=== PATIENT | male | born 1990 | race Caucasian/White ===

== ENCOUNTER 2017-01-16 19:46 | Inpatient (IN) | payer MEDICAID ==
[~2017-01-16] VITALS: Ht 152.4 cm; Wt 41.4 kg
[~2017-01-16 19:46] MED LIST: /ESOM40CA; ACET500C; ARTISOL10; CETAPHIL CLEANSER; COLA100C2; DEBR6.5S4; DUCOLAX; FLEETS ENEMA; LORA1TAB; MILKSUS; MINO0.1C PO; MULTIVIT; SING10TA31; SUDA30TA; TAZORAC; TOPI100T; ZYRT10CA PO; [UNRECOGNIZED DRUG - CODE]; [UNRECOGNIZED DRUG - OTHER]
--- NOTE | 2017-01-16 20:50 | REPUSA ---
CT of the head Clinical history: loss of consciousness. Comparison: 04/06/2015. Protocol: Multiple axial CT images obtained with 5 mm slice thickness were obtained through the head without administration of contrast. Findings: The posterior horns of the lateral ventricles are severely and large, but grossly stable si nce the prior study. A shunt catheter remains in in place, medial to the posterior horn of the right lateral ventricle. There is no evidence of acute hemorrhage or infarct. There is no midline shift, ma ss effect, or extra-axial fluid collection. The osseous structures are unremarkable. The visualized p aranasal sinuses and mastoid air cells are clear. Impression: 1. No acute hemorrhage or infarct. 2. Severe enlargement of the posterior horns of the lateral ventricles bilaterally are grossly stable since the prior study. Shunt catheter is in place.
[2017-01-16 20:53] LABS: BASO % 0.1 % (0.0-1.0); EOS # 0.1 K/mm3 (0.0-0.50); EOS % 0.7 % (0.0-3.0); LARGE UNSTAINED CELL # 0.1 K/mm3 (0.0-0.4); LARGE UNSTAINED CELL % 0.6 % (0.0-4.0); LYMPH # 0.8 K/mm3 (1.5-6.5); LYMPH % 6.7 % (24.0-44.0); MEAN CORPUSCULAR HEMOGLOBIN 29.5 pg (27.0-33.0); MEAN CORPUSCULAR HGB CONC 33.1 g/dl (32.0-36.5); MEAN CORPUSCULAR VOLUME 89.1 fl (80.0-96.0); MONO # 0.3 K/mm3 (0.0-0.8); MONO % 2.5 % (0.0-5.0); NEUTROPHILS # 10.3 K/mm3 (1.8-7.7); NEUTROPHILS % 89.4 % (36.0-66.0); PLATELET COUNT, AUTOMATED 200 k/mm3 (150-450); RED CELL DISTRIBUTION WIDTH 12.2 % (11.5-14.5); WHITE BLOOD COUNT 11.6 K/mm3 (4.0-10.0)
[2017-01-16 21:04] LABS: INR 1.04
[2017-01-16 21:15] LABS: ALBUMIN 3.9 GM/DL (3.2-5.2); ALBUMIN/GLOBULIN RATIO 1.08 (1.00-1.93); ALKALINE PHOSPHATASE 99 U/L (45-117); ALT/SGPT 37 U/L (12-78); ANION GAP 10 MEQ/L (8-16); AST/SGOT 13 U/L (15-37); BILIRUBIN,DIRECT < 0.1 MG/DL (0.0-0.2); BILIRUBIN,TOTAL 0.2 MG/DL (0.2-1.0); BLOOD UREA NITROGEN 18 MG/DL (7-18); CARBON DIOXIDE LEVEL 25 MEQ/L (21-32); CHLORIDE LEVEL 110 MEQ/L (98-107); CREATININE FOR GFR 1.19 MG/DL (0.70-1.30); GLOMERULAR FILTRATION RATE > 60.0 (>60); GLUCOSE, FASTING 191 MG/DL (70-105); POTASSIUM SERUM 3.8 MEQ/L (3.5-5.1); SODIUM LEVEL 145 MEQ/L (136-145); TOTAL PROTEIN 7.5 GM/DL (6.4-8.2)
[2017-01-16] MEDS ORDERED: MONT10TA2 PO (22:42)
[2017-01-16] MEDS ORDERED: SUDA30TA PO (22:42)
[2017-01-16] MEDS ORDERED: DULC10SU2 PR (22:42)
[2017-01-16] MEDS ORDERED: CETI10TA PO (22:42)
[2017-01-16] MEDS ORDERED: SALI0.653 ×2 (22:42)
[2017-01-16] MEDS ORDERED: MILKSUS PO (22:42)
[2017-01-16] MEDS ORDERED: DOCU100C PO (22:42)
[2017-01-16] MEDS ORDERED: BENZ35GEL TOP (22:42)
[2017-01-16] MEDS ORDERED: CLOTR1CR EXT (22:42)
[2017-01-16] MEDS ORDERED: ESOM1CAP5 PO (22:42)
[2017-01-16] MEDS ORDERED: TOPA100T8 PO (22:42)
[2017-01-16] MEDS ORDERED: VITACHTA PO (22:42)
[2017-01-16] MEDS ORDERED: ENEMENE3 PR (22:42)
[2017-01-16] MEDS ORDERED: MINO100C PO (22:42)
[2017-01-16] MEDS ORDERED: THROMBIN SOLN 20,000 UNITS KIT As Ordered ONE (23:17)
[2017-01-16] MEDS ORDERED: LIDOCAINE W/EPINEPHRINE 1% 20ML VIAL As Ordered ONE (23:18)
[2017-01-16] MEDS ORDERED: NAFCILLIN SOD 1 GM VIAL (S0032) As Ordered ONE ×2 (23:18→23:59)
[2017-01-16] MEDS ORDERED: BACITRACIN PWD 50,000 UNITS VIAL As Ordered ONE (23:18)
--- NOTE | 2017-01-16 23:21 | EDDOCDS ---
Physician Documentation [facility] Name: Avinash Waddell Age: 26 yrs Sex: Male : 1990 Arrival Date: 01/16/2017 Time: 19:46 Bed TR5 Private MD: Pau Shah E Disposition: 01/16/17 22:18 Hospitalization ordered by Jonatan Mauro for Inpatient Admission. 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 - Bed requested for Admit. - Status is Inpatient Admission. [facility] - Condition is Stable. - Problem is new. - Symptoms have improved. Historical: - Allergies: Latex; - Home Meds: 1. Topamax 100 mg Oral tab 1 tab TID 2. esomeprazole magnesium 40 mg Oral cpDR 1 cap once daily 3. minocycline 100 mg Oral cap 1 cap daily 4. chewable vitamin 1 tab daily 5. DOK 100 mg oral cap 1 cap 2 times per day 6. topiramate 100 mg oral tab TID 7. montelukast 10 mg oral tab 1 tab once daily - PMHx: Cerebral Palsy; Seizure Disorder; Asthma; cortical blindness; - PSHx: AV shunt on right 1992; bilateral hip surgery; - Social history: Smoking status: Patient states was never smoker of tobacco. Patient is speech impaired. Does not speak. - Family history: Not pertinent. - : The pt / caregiver states he / she is not on anticoagulants. Home medication list is obtained from the facility [facility]. - Exposure Risk Screening:: None identified. Vital Signs: 01/16 20:02 BP 124 / 78; Pulse 66; Resp 18; Temp 98.6(TE); Pulse Ox 100% on 2 lpm NC; Weight 44.36 kas2 kg / 97.8 lbs; Height 5 ft. (152.40 cm); Pain 0/10; 21:30 BP 128 / 82; Pulse 65; Resp 18; Temp 97.9(TE); Pulse Ox 100% on 2 lpm NC; Pain 0/10; kas2 22:55 BP 136 / 87; Pulse 66; Resp 16; Temp 98.9(TE); Pulse Ox 100% on 2 lpm NC; nb2 20:02 Body Mass Index 19.10 (44.36 kg, 152.40 cm) kas2 MDM: 20:14 CT Head Without Contrast Ordered. EDMS 20:26 IV Saline Lock ordered. cs11 20:26 CBC with Diff Ordered. EDMS 20:26 MED Profile Ordered. EDMS 20:26 Liver Profile Ordered. EDMS 20:26 Pt & Aptt Ordered. EDMS 20:41 Financial registration complete. ks16 20:47 [facility] Payment Agreement was scanned into [employer] and attached to record. ks16 21:25 CBC with Diff Reviewed. cs11 21:25 MED Profile Reviewed. cs11 21:25 Liver Profile Reviewed. cs11 21:25 Pt & Aptt Reviewed. cs11 21:25 CT Head Without Contrast Reviewed. cs11 21:53 Shunt Series Ordered. EDMS 21:54 Sed Rate Ordered. EDMS Signatures: Dispatcher [employer] EDMS Gonzalez Jj DO DO cs11 Ronda Melendrez, Reg Reg ks16 Delmy Guzman,RN RN kas2 The chart was reviewed and I authenticate all verbal orders and agree with the evaluation and treatment provided.Attachments: 20:47 [facility] Payment Agreement ks16 MTDD
--- NOTE | 2017-01-16 23:21 | EDDOCDS ---
Nurse's Notes [facility] Name: Avinash Waddell Age: 26 yrs Sex: Male : 1990 Arrival Date: 01/16/2017 Time: 19:46 Bed TR5 Private MD: Pau Shah E Diagnosis: Hydrocephalus;Breakdown (mechanical) of ventricular intracranial (communicating) shunt Presentation: 01/16 19:54 Presenting complaint: EMS states: Patient is from [facility]. Staff not sure if he had a kas2 seizure unwitnessed. Staff said he is not acting himself. FSBS 202 mg/dL. EMS states he is having periods of apnea. Adult Sepsis Screening: The patient does not have new or worsening altered mentation. Patient's respiratory rate is less than 22. Systolic blood pressure is greater than 100. Patient has a qSOFA score of 0- Negative Sepsis Screen. Suicide/Homicide risk assessment- Suicide/Homicide risk assessment- the patient denies having any suicidal and/or homicidal ideations and does not present with any other emotional, behavioral or mental health complaints. Suicide/Homicide risk assessment- the patient denies having any suicidal and/or homicidal ideations and does not present with any other emotional, behavioral or mental health complaints. Status: Patient is not a equipment service lead or dependent. Transition of care: patient was not received from another setting of care. 19:54 Acuity: ROMELIA Level 3 [facility] 19:54 Method Of Arrival: Ambulance [facility] Triage Assessment: 20:02 General: Appears in no apparent distress, uncomfortable, well nourished, well groomed, kas2 Behavior is restless. Pain: Unable to use pain scale. Does not appear to understand pain scale. Pt Declines HIV testing. Neurological: Level of Consciousness is awake, lethargic. Cardiovascular: Capillary refill < 3 seconds Heart tones S1 S2 present Rhythm is sinus rhythm No ectopy. Chest pain is denied. Respiratory: Airway is patent Respiratory effort is even, unlabored, Respiratory pattern is regular, symmetrical. Derm: Skin is intact, Skin is dry, Skin is pale, Skin temperature is warm. 20:10 Respiratory: Breath sounds are clear bilaterally. Breath sounds are diminished cf2 bilaterally. GI: Abdomen is flat, non- distended Bowel sounds present X 4 quads. Historical: - Allergies: Latex; - Home Meds: 1. Topamax 100 mg Oral tab 1 tab TID 2. esomeprazole magnesium 40 mg Oral cpDR 1 cap once daily 3. minocycline 100 mg Oral cap 1 cap daily 4. chewable vitamin 1 tab daily 5. DOK 100 mg oral cap 1 cap 2 times per day 6. topiramate 100 mg oral tab TID 7. montelukast 10 mg oral tab 1 tab once daily - PMHx: Cerebral Palsy; Seizure Disorder; Asthma; cortical blindness; - PSHx: AV shunt on right 1993; bilateral hip surgery; - Social history: Smoking status: Patient states was never smoker of tobacco. Patient is speech impaired. Does not speak. - Family history: Not pertinent. - : The pt / caregiver states he / she is not on anticoagulants. Home medication list is obtained from the facility [facility]. - Exposure Risk Screening:: None identified. Screenin:07 Screening information is obtained from residence staff. Fall risk: No risks identified. kas2 Assistance ADL's: Requires assistance with meal preparation, this assistance is provided by residence staff, bathing, assistance is provided by residence staff, dressing, assistance is provided by residence staff, toileting, assistance is provided by residence staff, medication administration, assistance is provided by residence staff. Abuse/DV Screen: The patient / caregiver reports he/she is: not in a situation that causes fear, pain or injury. Nutritional screening: No deficits noted. Advance Directives: Currently, there is no health care proxy. There is no active DNR order. There is no living will. There is no Power of Study Lead. home support is adequate. Assessment: 20:06 General: See triage note.. kas2 20:52 General: Appears in no apparent distress, well nourished, well groomed, Behavior is kas2 restless. Pain: Unable to use pain scale. Patient is non verbal. Neurological: Level of Consciousness is awake, alert. Cardiovascular: Rhythm is sinus rhythm No ectopy. Respiratory: Airway is patent Respiratory effort is even, unlabored, Respiratory pattern is regular, symmetrical. :. Derm: Skin is intact, Skin is dry, Skin is pale, Skin temperature is warm. 21:58 General: Appears in no apparent distress, Behavior is Patient is appropriate for his kas2 normal self as per mom.. Pain: Unable to use pain scale. Patient is unable to comprehend pain scale. Neurological: Level of Consciousness is awake, alert. Cardiovascular: Rhythm is sinus rhythm No ectopy. Respiratory: Airway is patent Respiratory effort is even, unlabored, Respiratory pattern is regular, symmetrical. Derm: Skin is intact, Skin is dry, Skin is pale, Skin temperature is warm. 22:30 General: Mom states patient is having apneic spells. SpO2 100% on 2L. Dr. Serrano in [facility] room assessing patient at this time. Patient wakes to sternal rub and moans. Airway patent. . 23:02 General: Anaestesiology in room wanting to intubate patient at this time. States there [facility] is not enough room so RN aid and anaestesiologist bagging patient to OR at this time.. Vital Signs: 20:02 BP 124 / 78; Pulse 66; Resp 18; Temp 98.6(TE); Pulse Ox 100% on 2 lpm NC; Weight 44.36 kas2 kg; Height 5 ft. (152.40 cm); Pain 0/10; 21:30 BP 128 / 82; Pulse 65; Resp 18; Temp 97.9(TE); Pulse Ox 100% on 2 lpm NC; Pain 0/10; kas2 22:55 BP 136 / 87; Pulse 66; Resp 16; Temp 98.9(TE); Pulse Ox 100% on 2 lpm NC; nb2 20:02 Body Mass Index 19.10 (44.36 kg, 152.40 cm) [facility] Vitals: 20:02 Log In Time N/A - ambulance arrival. [facility] ED Course: 19:47 Delmy Guzman RN is Primary Nurse. [facility] 19:47 Patient visited by Milady Mercado, Internal Review And Audit Compliance. [facility] 19:47 Patient moved to 12 [facility] 19:48 Pau Shah is Private Physician. [facility] 19:49 Gonzalez Jj DO is Attending Physician. 11 19:49 Patient visited by Gonzalez Jj DO. cs11 19:56 Triage Initiated [facility] 20:10 Maintain field IV. Dressing intact. Site clean & dry. Gauge & site: 18G right forearm. cf2 No procedures done that require assistance. 20:11 Patient visited by Kenyatta Crockett RN. cf2 20:19 Patient visited by Delmy Guzman RN. kas2 20:37 Patient visited by Delmy Guzman RN. kas2 20:47 [facility] Payment Agreement was scanned into [employer] and attached to record. ks16 20:52 CT Head Without Contrast Returned. EDMS 20:54 Patient visited by Delmy Guzman RN. kas2 20:54 Labs drawn. (by ED staff). Sent per order to lab. kas2 21:32 Patient visited by Delmy Guzman RN. kas2 21:57 Sed Rate Sent. kas2 21:59 Patient visited by Delmy Guzman RN. kas2 22:18 Jonatan Mauro is Hospitalizing Provider. cs11 23:13 Patient moved to TR5 ms18 23:20 Patient visited by Delmy Guzman RN. kas2 23:20 The patient / caregiver is instructed regarding the plan of care and ED course. kas2 Order Results: Lab Order: CBC with Diff; SPEC'M 01/16/17 20:45 Test: WHITE BLOOD COUNT; Value: 11.6; Range: 4.0-10.0; Abnormal: Above high normal; Units: K/mm3; Status: F Test: RED BLOOD COUNT; Value: 5.25; Range: 4.30-6.10; Units: M/mm3; Status: F Test: HEMOGLOBIN; Value: 15.5; Range: 14.0-18.0; Units: g/dl; Status: F Test: HEMATOCRIT; Value: 46.8; Range: 42.0-52.0; Units: %; Status: F Test: MEAN CORPUSCULAR VOLUME; Value: 89.1; Range: 80.0-96.0; Units: fl; Status: F Test: MEAN CORPUSCULAR HEMOGLOBIN; Value: 29.5; Range: 27.0-33.0; Units: pg; Status: F Test: MEAN CORPUSCULAR HGB CONC; Value: 33.1; Range: 32.0-36.5; Units: g/dl; Status: F Test: RED CELL DISTRIBUTION WIDTH; Value: 12.2; Range: 11.5-14.5; Units: %; Status: F Test: PLATELET COUNT, AUTOMATED; Value: 200; Range: 150-450; Units: k/mm3; Status: F Test: NEUTROPHILS %; Value: 89.4; Range: 36.0-66.0; Abnormal: Above high normal; Units: %; Status: F Test: LYMPH %; Value: 6.7; Range: 24.0-44.0; Abnormal: Below low normal; Units: %; Status: F Test: MONO %; Value: 2.5; Range: 0.0-5.0; Units: %; Status: F Test: EOS %; Value: 0.7; Range: 0.0-3.0; Units: %; Status: F Test: BASO %; Value: 0.1; Range: 0.0-1.0; Units: %; Status: F Test: LARGE UNSTAINED CELL %; Value: 0.6; Range: 0.0-4.0; Units: %; Status: F Test: NEUTROPHILS #; Value: 10.3; Range: 1.8-7.7; Abnormal: Above high normal; Units: K/mm3; Status: F Test: LYMPH #; Value: 0.8; Range: 1.5-6.5; Abnormal: Below low normal; Units: K/mm3; Status: F Test: MONO #; Value: 0.3; Range: 0.0-0.8; Units: K/mm3; Status: F Test: EOS #; Value: 0.1; Range: 0.0-0.50; Units: K/mm3; Status: F Test: BASO #; Value: 0.0; Range: 0.0-0.2; Units: K/mm3; Status: F Test: LARGE UNSTAINED CELL #; Value: 0.1; Range: 0.0-0.4; Units: K/mm3; Status: F Lab Order: MED Profile; SPEC'M 01/16/17 20:45 Test: GLUCOSE, FASTING; Value: 191; Range: 70-105; Abnormal: Above high normal; Units: MG/DL; Status: F Test: BLOOD UREA NITROGEN; Value: 18; Range: 7-18; Units: MG/DL; Status: F Test: CREATININE FOR GFR; Value: 1.19; Range: 0.70-1.30; Units: MG/DL; Status: F Test: GLOMERULAR FILTRATION RATE; Value: > 60.0; Range: >60; Status: F Test: SODIUM LEVEL; Value: 145; Range: 136-145; Units: MEQ/L; Status: F Test: POTASSIUM SERUM; Value: 3.8; Range: 3.5-5.1; Units: MEQ/L; Status: F Test: CHLORIDE LEVEL; Value: 110; Range: 98-107; Abnormal: Above high normal; Units: MEQ/L; Status: F Test: CARBON DIOXIDE LEVEL; Value: 25; Range: 21-32; Units: MEQ/L; Status: F Test: ANION GAP; Value: 10; Range: 8-16; Units: MEQ/L; Status: F Test: CALCIUM LEVEL; Value: 9.0; Range: 8.5-10.1; Units: MG/DL; Status: F Test Note: ; Units are mL/min/1.73 m2 Chronic Kidney Disease Staging per NKF: Stage I & II GFR >=60 Normal to Mildly Decreased Stage III GFR 30-59 Moderately Decreased Stage IV GFR 15-29 Severely Decreased Stage V GFR <15 Very Little GFR Left ESRD GFR <15 on GAS LOAD DISPATCHER Lab Order: Liver Profile; SPEC'M 01/16/17 20:45 Test: AST/SGOT; Value: 13; Range: 15-37; Abnormal: Below low normal; Units: U/L; Status: F Test: ALT/SGPT; Value: 37; Range: 12-78; Units: U/L; Status: F Test: ALKALINE PHOSPHATASE; Value: 99; Range: 45-117; Units: U/L; Status: F Test: BILIRUBIN,TOTAL; Value: 0.2; Range: 0.2-1.0; Units: MG/DL; Status: F Test: BILIRUBIN,DIRECT; Value: < 0.1; Range: 0.0-0.2; Units: MG/DL; Status: F Test: TOTAL PROTEIN; Value: 7.5; Range: 6.4-8.2; Units: GM/DL; Status: F Test: ALBUMIN; Value: 3.9; Range: 3.2-5.2; Units: GM/DL; Status: F Test: ALBUMIN/GLOBULIN RATIO; Value: 1.08; Range: 1.00-1.93; Status: F Lab Order: Pt & Aptt; SPEC'01/16/17 20:45 Test: PROTHROMBIN TIME; Value: 13.7; Range: 12.3-14.5; Units: SECONDS; Status: F Test: INR; Value: 1.04; Status: F Test: PARTIAL THROMBOPLASTIN TIME; Value: 26.0; Range: 26.6-37.1; Abnormal: Below low normal; Units: SECONDS; Status: F Test Note: ; THERAPUTIC HUMAN INR VALUES INDICATIONS NORMAL RANGES PROPHYLAXIS/TREATMENT OF: VENOUS THROMBOSIS 2.0-3.0 PULMONARY EMBOLISM 2.0-3.0 PREVENTION OF SYSTEMIC EMBOLISM FROM: TISSUE HEART VALVES 2.0-3.0 ACUTE MYOCARDIAL INFARCTION 2.0-3.0 VALVULAR HEART DISEASE 2.0-3.0 ATRIAL FIBRILLATION 2.0-3.0 MECHANICAL VALVES(HIGH RISK) 2.5-3.5 RECURRENT MYOCARDIAL INFARCTION 2.5-3.5 Lab Order: Sed Rate; SPEC'M 01/16/17 20:45 Test: ERYTHROCYTE SEDIMENTATION RATE; Value: 3; Range: 0-15; Units: mm/hr; Status: F Radiology Order: CT Head Without Contrast Test: CT Head Without Contrast REASON FOR EXAMINATION: aloc; ; CT of the head; Clinical history: loss of consciousness.; Comparison: 04/06/2015.; Protocol: Multiple axial CT images obtained with 5 mm slice thickness were obtained through the head; without administration of contrast.; Findings: The posterior horns of the lateral ventricles are severely and large, but grossly stable si; nce the prior study. A shunt catheter remains in in place, medial to the posterior horn of the right; lateral ventricle. There is no evidence of acute hemorrhage or infarct. There is no midline shift, ma; ss effect, or extra-axial fluid collection. The osseous structures are unremarkable. The visualized p; aranasal sinuses and mastoid air cells are clear.; Impression:; 1. No acute hemorrhage or infarct.; 2. 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 Shunt catheter is in place.; ; Outcome: 22:18 Decision to Hospitalize by Provider. cs11 23:19 Discharge Assessment: patient administered narcotics - no. Admitted to OR accompanied kas2 by nurse, accompanied by tech, family with patient, via stretcher, with oxygen, on monitor, with chart. critical Condition: deteriorated. CT Study completed. Property :Personal belongings accompany Pt. 23:20 The following High Risk Discharge criteria are identified:. kas2 23:20 Patient left the ED. kas2 Signatures: Dispatcher [employer] EDMS Gonzalez Jj, DO DO cs11 Milady Mercado, Internal Review And Audit Compliance Unit Francheska Chapin RN RN ms18 Parvin Ronda, Reg Reg ks16 Delmy Guzman RN RN [facility] Kenyatta Crockett RN RN 2 Светлана Lutz2 Corrections: (The following items were deleted from the chart) 23:14 23:08 General: kas2 kas2 23:17 22:30 General: Mom states patient having apneic spells when laying in bed. SpO2 100% on kas2 2L pnp. Airway patent and respiratory even and unlabored. RN performed sternal rub and patient wakes up and moans. Dr. Mora in room assessing patient at this time.. kas2 MTDD
[2017-01-16] MEDS ORDERED: fentaNYL 100 MCG/2 ML INJECTION (J3010) As Ordered ONE (23:54)
[2017-01-16] MEDS ORDERED: PROPOFOL 200 MG/20 ML VIAL As Ordered ONE (23:54)
[2017-01-16] MEDS ORDERED: dexameTHASONE 4 MG/ML 1ML VIAL (J1100) As Ordered ONE (23:55)
[2017-01-16] MEDS ORDERED: ROCURONIUM BROMIDE 50 MG/5 ML VIAL As Ordered ONE (23:58)
[2017-01-17] VITALS (16 sets, daily range): BP systolic 98–141; BP diastolic 52–97; O2SAT 99–100
[2017-01-17] MEDS ORDERED: NAFCILLIN SOD 1 GM VIAL (S0032) IV ONE (00:01)
[2017-01-17] MEDS ORDERED: fentaNYL 100 MCG/2 ML INJECTION (J3010) As Ordered ONE (00:01)
[2017-01-17] MEDS ORDERED: PHENYLephrine HCL 500 MCG/5 ML (100MCG/ML) SYRINGE (J2370) As Ordered ONE (00:10)
[2017-01-17] MEDS ORDERED: PROPOFOL 200 MG/20 ML VIAL As Ordered ONE (00:12)
[2017-01-17] MEDS ORDERED: NEOSTIGMINE 1MG/ML 5 ML SYRINGE (J2710) As Ordered ONE (00:51)
[2017-01-17] MEDS ORDERED: ONDANSETRON 4MG/2ML VIAL (J2405) As Ordered ONE (00:51)
[2017-01-17] MEDS ORDERED: GLYCOPYRROLATE INJ 0.2 MG/ML 2 ML VIAL As Ordered ONE (00:52)
[2017-01-17] MEDS ORDERED: KCL 20MEQ IN D5/.45NACL 1000ML As Ordered ONE (01:14)
[2017-01-17] MEDS ORDERED: MEPERIDINE INJ 25 MG/ML VIAL (J2175) As Ordered ONE (01:17)
[2017-01-17] MEDS ORDERED: LIDOCAINE W/EPINEPHRINE 1% 20ML VIAL XX ONE (01:39)
[2017-01-17] MEDS ORDERED: fentaNYL 100 MCG/2 ML INJECTION (J3010) IV PRN (01:45)
[2017-01-17] MEDS ORDERED: MEPERIDINE INJ 25 MG/ML VIAL (J2175) IV PRN (01:45)
[2017-01-17] MEDS ORDERED: LR 1,000 ML IV SCH (01:45)
[2017-01-17] MEDS ORDERED: ONDANSETRON 4MG/2ML VIAL (J2405) IV PRN (01:45)
[2017-01-17 01:46] LABS: APPEARANCE, CSF CLOUDY (CLEAR); COLOR, CSF RED (COLORLESS); CSF TUBE# CELL CNT TUBE 1
[2017-01-17 01:47] LABS: CSF DIFF IF INDICATED? YES (NO); RBC CSF AUTO 81920 /mm3 (0-0); WBC CSF AUTO 1050 /mm3 (0-10)
[2017-01-17 01:48] LABS: CSF DILUENT LOT # 6109
[2017-01-17 01:51] LABS: GLUCOSE CSF 101 MG/DL (40-75)
[2017-01-17] MEDS: KCL 20MEQ IN D5/0.45NS 1000ML 1,000 ML IV SCH ×3 (03:32→18:25)
[2017-01-17] MEDS: CEFUROXIME SODIUM 1.5 GM in D5W MINI-BAG PLUS 50 ML IV SCH ×3 (03:33→18:00)
[2017-01-17 05:06] LABS: ALBUMIN 3.3 GM/DL (3.2-5.2); ALKALINE PHOSPHATASE 84 U/L (45-117); ALT/SGPT 31 U/L (12-78); ANION GAP 9 MEQ/L (8-16); AST/SGOT 13 U/L (15-37); BILIRUBIN,TOTAL 0.2 MG/DL (0.2-1.0); BLOOD UREA NITROGEN 17 MG/DL (7-18); CALCIUM LEVEL 8.7 MG/DL (8.5-10.1); CARBON DIOXIDE LEVEL 25 MEQ/L (21-32); CHLORIDE LEVEL 110 MEQ/L (98-107); CREATININE FOR GFR 1.11 MG/DL (0.70-1.30); GLOMERULAR FILTRATION RATE > 60.0 (>60); GLUCOSE, FASTING 134 MG/DL (70-105); POTASSIUM SERUM 4.1 MEQ/L (3.5-5.1); SODIUM LEVEL 144 MEQ/L (136-145); TOTAL PROTEIN 6.6 GM/DL (6.4-8.2)
[2017-01-17 05:31] LABS: BASO % 0.1 % (0.0-1.0); EOS % 0.2 % (0.0-3.0); LARGE UNSTAINED CELL # 0.1 K/mm3 (0.0-0.4); LARGE UNSTAINED CELL % 0.8 % (0.0-4.0); LYMPH # 0.8 K/mm3 (1.5-6.5); LYMPH % 6.3 % (24.0-44.0); MEAN CORPUSCULAR HEMOGLOBIN 29.6 pg (27.0-33.0); MEAN CORPUSCULAR HGB CONC 33.2 g/dl (32.0-36.5); MEAN CORPUSCULAR VOLUME 89.2 fl (80.0-96.0); MONO # 0.6 K/mm3 (0.0-0.8); MONO % 4.5 % (0.0-5.0); NEUTROPHILS # 10.8 K/mm3 (1.8-7.7); NEUTROPHILS % 88.2 % (36.0-66.0); PLATELET COUNT, AUTOMATED 213 k/mm3 (150-450); RED CELL DISTRIBUTION WIDTH 12.4 % (11.5-14.5); WHITE BLOOD COUNT 12.3 K/mm3 (4.0-10.0)
--- NOTE | 2017-01-17 08:41 | REP ---
Clinical: Shunt series. Loss of consciousness. Findings: AP and lateral views of the skull along with AP views of the chest and abdomen/pelvis demonstrate a ventriculoperitoneal shunt with its tip overlying the region of the right ventricle and tubing appearing contiguous along the right neck/chest and abdomen terminating in the mid abdomen. Bowel gas pattern is nonspecific. Frontal view of the chest demonstrates no acute mediastinal or pleuroparenchymal process. Visualized osseous structures suggest mild levoconvex scoliosis and spina bifida occulta. Impression: Ventriculoperitoneal shunt appears contiguous and extends into the mid abdomen. Signed by All Nguyen MD 01/17/2017 08:33 A
[2017-01-17] MEDS: TOPIRAMATE (TopAMAX) 100 MG TAB PO SCH ×3 (09:54→21:09)
--- NOTE | 2017-01-17 10:59 | REP ---
CT HEAD WITHOUT CONTRAST: HISTORY: Intraventricular shunt. COMPARISON: 01/06/2017. There is volume loss in the temporoparietal and left occipital lobes. A punctate calcification is present in the periventricular white matter of the left frontal lobe. There is no intraparenchymal hemorrhage, mass or midline shift. Two shunts are present in the right lateral ventricle. The lateral shunt is new compared to the previous study. There has been a decrease in size of the ventricles compared to the previous study. A small amount of pneumocephalus is present. There is no extracerebral collection. The visualized sinuses are clear. IMPRESSION: 1. Bilateral temporoparietal and left occipital lobe encephalomalacia. 2. There is a new shunt in the right lateral ventricle. The ventricles are decreased in size compared to the previous study. A small amount of pneumocephalus is present. Signed by Jorge Pearson MD 01/17/2017 11:11 A
--- NOTE | 2017-01-17 11:44 | IPNPDOC ---
Subjective Date Seen The patient was seen on 01/17/17. Subjective Chief Complaint/HPI The patient is a 26-year-old male admitted with a reason for visit of Hydrocephalus. Events since last encounter as per [facility] staff patient's mental status almost back to baseline, patient is smiling having pureed food, Had PROPOSAL DEVELOPMENT MANAGER shunt replacement on 01/16/17, no fever or chills, no vomiting or diarrhea. Objective Physical Examination General Exam: Positive: Cooperative, No Acute Distress, Other (non communicative, blind.) Eye Exam: Positive: Other Eye Symptoms (left eye shut, right eye abnormal. ) ENT Exam: Positive: Atraumatic, Mucous membr. moist/pink Neck Exam: Positive: Supple Chest Exam: Positive: Clear to auscultation, Normal air movement Heart Exam: Positive: Normal S1, Normal S2, Regular Rhythm, Tachycardic Telemetry: Positive: No significant arrhythmia Abdomen Exam: Positive: Normal bowel sounds, Soft Extremity Exam: Positive: Other (contracted, atrophied and abnormal both extremities.) Psych Exam: Positive: Other (severe mental retardation) Assessment /Plan Problems (1) Obstructed PROPOSAL DEVELOPMENT MANAGER shunt Status: Acute Problem Text: abnormal function of PROPOSAL DEVELOPMENT MANAGER shunt which was replaced on 01/16/17 no issues management as per neurosurgery. (2) Congenital hydrocephalus Status: Chronic (3) Developmental disability Status: Chronic Problem Text: continue home meds. (4) Blind Status: Chronic (5) Seizure disorder Status: Chronic Problem Text: continue home meds Plan/VTE VTE Prophylaxis Ordered?: Yes VS, I&O, 24H, Fishbone Vital Signs/I&O Vital Signs Date Time Temp Pulse Resp B/P Pulse Ox O2 Delivery O2 Flow Rate FiO2 01/17/17 05:00 18 99 Room Air 01/17/17 04:00 98.3 78 102/54 2.0 01/17/17 01:55 28 I&O- Last 24 Hours up to 6 AM 01/17/17 06:00 Intake Total 2530 ml Output Total 10 ml Balance 2520 ml Laboratory Data 24H LABS Laboratory Tests 2 01/16/17 20:45: Activated Partial Thromboplast Time 26.0L, Aspartate Amino Transf (AST/SGOT) 13L , Alanine Aminotransferase (ALT/SGPT) 37, Alkaline Phosphatase 99, Total Bilirubin 0.2, Direct Bilirubin < 0.1, Albumin 3.9, Albumin/Globulin Ratio 1.08 , Anion Gap 10, White Blood Count 11.6H, Red Blood Count 5.25, Hemoglobin 15.5, Hematocrit 46.8, Mean Corpuscular Volume 89.1, Mean Corpuscular Hemoglobin 29.5 , Mean Corpuscular Hemoglobin Concent 33.1, Red Cell Distribution Width 12.2, Platelet Count 200, Neutrophils (%) (Auto) 89.4H, Lymphocytes (%) (Auto) 6.7L, Monocytes (%) (Auto) 2.5, Eosinophils (%) (Auto) 0.7, Basophils (%) (Auto) 0.1, Neutrophils # (Auto) 10.3H, Lymphocytes # (Auto) 0.8L, Monocytes # (Auto) 0.3, Eosinophils # (Auto) 0.1, Basophils # (Auto) 0.0, Calcium Level 9.0, Erythrocyte Sedimentation Rate 3, Glomerular Filtration Rate > 60.0, Large Unclassified Cells # 0.1, Large Unclassified Cells % 0.6, Prothromb Time International Ratio 1.04, Prothrombin Time 13.7, Total Protein 7.5 01/17/17 01:08: CSF Appearance CLOUDYH, CSF Cell Count Tube # TUBE 1, CSF Color REDH, CSF Eosinophils % 0.3H, CSF Glucose 101H, CSF Lymphocytes % 15.0H, CSF Monocytes % 7.2H, CSF Neutrophils % 77.6H, CSF RBC 03345E, CSF Total Protein 100.8H, CSF Tube Number TUBE 1, CSF WBC 1050H 01/17/17 04:41: Aspartate Amino Transf (AST/SGOT) 13L, Alanine Aminotransferase (ALT/SGPT) 31, Alkaline Phosphatase 84, Total Bilirubin 0.2, Albumin 3.3, Albumin/Globulin Ratio 1.00, Anion Gap 9, White Blood Count 12.3H, Red Blood Count 4.80, Hemoglobin 14.2, Hematocrit 42.8, Mean Corpuscular Volume 89.2, Mean Corpuscular Hemoglobin 29.6, Mean Corpuscular Hemoglobin Concent 33.2, Red Cell Distribution Width 12.4, Platelet Count 213, Neutrophils (%) (Auto) 88.2H, Lymphocytes (%) (Auto) 6.3L, Monocytes (%) (Auto) 4.5, Eosinophils (%) (Auto) 0.2, Basophils (%) (Auto) 0.1, Neutrophils # (Auto) 10.8H, Lymphocytes # (Auto) 0.8L, Monocytes # (Auto) 0.6, Eosinophils # (Auto) 0.0, Basophils # (Auto) 0.0, Calcium Level 8.7, Glomerular Filtration Rate > 60.0, Large Unclassified Cells # 0.1, Large Unclassified Cells % 0.8, Total Protein 6.6, Blood Urea Nitrogen 17 , Creatinine 1.11, Sodium Level 144, Potassium Level 4.1, Chloride Level 110H, Carbon Dioxide Level 25 CBC/BMP Laboratory Tests 01/16/17 20:45 Red Blood Count 5.25, Mean Corpuscular Volume 89.1, Mean Corpuscular Hemoglobin 29.5, Mean Corpuscular Hemoglobin Concent 33.1, Red Cell Distribution Width 12.2 , Neutrophils (%) (Auto) 89.4 H, Lymphocytes (%) (Auto) 6.7 L, Monocytes (%) ( Auto) 2.5, Eosinophils (%) (Auto) 0.7, Basophils (%) (Auto) 0.1, Neutrophils # ( Auto) 10.3 H, Lymphocytes # (Auto) 0.8 L, Monocytes # (Auto) 0.3, Eosinophils # (Auto) 0.1, Basophils # (Auto) 0.0 01/17/17 04:41 Red Blood Count 4.80, Mean Corpuscular Volume 89.2, Mean Corpuscular Hemoglobin 29.6, Mean Corpuscular Hemoglobin Concent 33.2, Red Cell Distribution Width 12.4 , Neutrophils (%) (Auto) 88.2 H, Lymphocytes (%) (Auto) 6.3 L, Monocytes (%) ( Auto) 4.5, Eosinophils (%) (Auto) 0.2, Basophils (%) (Auto) 0.1, Neutrophils # ( Auto) 10.8 H, Lymphocytes # (Auto) 0.8 L, Monocytes # (Auto) 0.6, Eosinophils # (Auto) 0.0, Basophils # (Auto) 0.0, Calcium Level 8.7, Aspartate Amino Transf ( AST/SGOT) 13 L, Alanine Aminotransferase (ALT/SGPT) 31, Alkaline Phosphatase 84 , Total Bilirubin 0.2, Total Protein 6.6, Albumin 3.3 Microbiology Microbiology 2/17/17 Gram Stain - Final, Resulted 01/17/17 CSF Culture, Resulted Pending LILIA TAN MD Jan 17, 2017 11:44
--- NOTE | 2017-01-17 12:12 | REP ---
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 Two shunts are present in the region of the lateral ventricles. A small amount of pneumocephalus is present. Surgical clips are present overlying the right temporal and parietal bones. IMPRESSION: There are two shunts in the region of the lateral ventricles. Signed by Jorge Pearson MD 01/17/2017 12:14 P
--- NOTE | 2017-01-17 12:40 | RO ---
DATE OF PROCEDURE: 01/17/2017 PREPROCEDURE DIAGNOSIS: Malfunctioning ventriculoperitoneal shunt. POSTPROCEDURE DIAGNOSIS: Malfunctioning ventriculoperitoneal shunt. PROCEDURE: Revision of ventriculoperitoneal shunt. SURGEON: Dr. Truong Hameed CO-SURGEON: Dr. Jonatan Mauro ANESTHESIA: General anesthesia. ESTIMATED BLOOD LOSS: Less than 10 mL. COMPLICATIONS: None. This procedure was done with Dr. Mauro as the neurosurgeon taking care of Mr. Waddell. He asked me to help him revise malfunctioning ventriculoperitoneal shunt causing the patient to have altered mental status. At the time that I came in the room, the patient was prepped and draped and under general anesthesia placed in a semi recumbent position. After he removed the old ventriculoperitoneal shunt and started a new one, I created about a 3 cm vertical incision superior to the periumbilical area, taking this through the subcutaneous tissue and anterior fascia. Once the anterior sheath was exposed, the subcutaneous tunneler was introduced and directed from my incision towards the patient's head. The catheter was threaded through the subcutaneous tunnel and connected to the ventricular shunt. This was tested. I then opened up the anterior sheath and the underlying peritoneum. The catheter was threaded directly into the abdomen. Once this was shown to be working, the abdominal fascia was closed interruptedly with #2-0 Vicryl. The subcutaneous tissue closed with #3-0 Vicryl and skin closed with #4-0 Monocryl. I used Dermabond for dressing. The other part of the procedure, the insertion of the ventricular shunt, will be dictated by Dr. Mauro.
[2017-01-17] MEDS: ACETAMINOPHEN TAB 650MG DOSE (2X325MG) PO PRN (17:56)
--- NOTE | 2017-01-17 18:44 | REP ---
Clinical: Postoperative fever. Findings: Extensive subcutaneous emphysema is appreciated within the right chest wall extending into the right neck as well as crossing the midline into the left anterior thoracic inlet. A right ventriculoperitoneal shunt is identified surrounded by and within the subcutaneous emphysema along the right neck, chest and upper abdominal wall . Limited evaluation of the upper abdomen also demonstrates pneumoperitoneum and distended loops of small and large bowel raising the possibility of underlying bowel perforation. The lung toure demonstrate bilateral lower lobe atelectasis (left greater than right) . No pleural effusion or pneumothorax. Tracheobronchial tree is patent . The mediastinum is grossly unremarkable by noncontrast evaluation. No obvious adenopathy. No cardiomegaly or pericardial effusion. Impression: 1. Pneumoperitoneum raising the possibility of underlying bowel perforation. 2. Subcutaneous emphysema along the right anterior abdominal wall , chest wall and right neck surrounding a ventriculoperitoneal shunt. Signed by All Nguyen MD 01/17/2017 06:35 P
--- NOTE | 2017-01-17 18:48 | REP ---
Clinical: Postoperative fever. Findings: Extensive pneumoperitoneum is appreciated along with predominant right-sided subcutaneous emphysema overlying the right chest and neck/thoracic inlet and extending into the left thoracic inlet. The lung toure suggest trace left-sided atelectasis. No obvious pneumothorax. Cardiac silhouette is normal. Skeletal structures are intact. Impression: Extensive pneumoperitoneum cannot exclude bowel perforation. Moderate subcutaneous emphysema (right greater than left). Trace left atelectasis. Signed by All Nguyen MD 01/17/2017 06:39 P
[2017-01-17] MEDS ORDERED: VANCOMYCIN HCL 1,000 MG, VIAL MATE ADAPTER 1 EACH in D5W 250 ML IV ONE (20:00)
[2017-01-17] MEDS ORDERED: MORPHINE 2 MG/ML 1ML SYRINGE IV ONE (21:00)
[2017-01-17] MEDS ORDERED: MORPHINE 2 MG/ML 1ML SYRINGE IV PRN (23:30)
[2017-01-18] VITALS (23 sets, daily range): BP systolic 89–148; BP diastolic 50–91
[2017-01-18] MEDS: KCL 20MEQ IN D5/0.45NS 1000ML 1,000 ML IV SCH ×4 (01:44→23:58)
[2017-01-18] MEDS: CEFUROXIME SODIUM 1.5 GM in D5W MINI-BAG PLUS 50 ML IV SCH ×2 (01:45→10:00)
[2017-01-18] MEDS: ACETAMINOPHEN TAB 650MG DOSE (2X325MG) PO PRN ×2 (02:42→22:12)
[2017-01-18] MEDS ORDERED: VANCOMYCIN HCL 1,000 MG, VIAL MATE ADAPTER 1 EACH in D5W 250 ML IV SCH (07:15)
[2017-01-18 08:02] LABS: ALBUMIN 3.6 GM/DL (3.2-5.2); ALKALINE PHOSPHATASE 92 U/L (45-117); ALT/SGPT 31 U/L (12-78); ANION GAP 25 MEQ/L (8-16); AST/SGOT 22 U/L (15-37); BILIRUBIN,TOTAL 0.8 MG/DL (0.2-1.0); BLOOD UREA NITROGEN 13 MG/DL (7-18); CALCIUM LEVEL 8.4 MG/DL (8.5-10.1); CARBON DIOXIDE LEVEL 13 MEQ/L (21-32); CHLORIDE LEVEL 99 MEQ/L (98-107); CREATININE FOR GFR 1.48 MG/DL (0.70-1.30); GLOMERULAR FILTRATION RATE > 60.0 (>60); GLUCOSE, FASTING 184 MG/DL (70-105); POTASSIUM SERUM 3.7 MEQ/L (3.5-5.1); SODIUM LEVEL 137 MEQ/L (136-145); TOTAL PROTEIN 7.2 GM/DL (6.4-8.2)
[2017-01-18 08:05] LABS: DIFF SLIDE NUMBER 98; MEAN CORPUSCULAR HEMOGLOBIN 30.4 pg (27.0-33.0); MEAN CORPUSCULAR HGB CONC 32.7 g/dl (32.0-36.5); MEAN CORPUSCULAR VOLUME 93.1 fl (80.0-96.0); PLATELET COUNT, AUTOMATED 206 k/mm3 (150-450); RED CELL DISTRIBUTION WIDTH 12.5 % (11.5-14.5); WHITE BLOOD COUNT 14.3 K/mm3 (4.0-10.0)
[2017-01-18 08:14] LABS: BASOPHILS 2 % (0-4)
[2017-01-18] MEDS: VANCOMYCIN HCL 750 MG, VIAL MATE ADAPTER 1 EACH in D5W 250 ML IV SCH ×2 (08:41→21:33)
[2017-01-18] MEDS: TOPIRAMATE (TopAMAX) 100 MG TAB PO SCH ×3 (08:41→21:33)
[2017-01-18] MEDS: levETIRAcetam INJection 500 MG in D5W MINI-BAG PLUS 100 ML IV SCH ×2 (08:41→21:34)
[2017-01-18] MEDS ORDERED: ONDANSETRON 4MG/2ML VIAL (J2405) IV PRN (10:30)
--- NOTE | 2017-01-18 10:30 | IPNPDOC ---
Subjective Date Seen The patient was seen on 01/18/17. Subjective Chief Complaint/HPI The patient is a 26-year-old male admitted with a reason for visit of Hydrocephalus. Events since last encounter patient febrile and lethargic since yesterday afternoon , had T max of 103.9, this am had an episode of seizure at around 7: 00 am then later in the morning had an episode of vomiting, patient was noted to have very tense and distended abdomen. feeds were held, NG tube inserted and ordered ct abdomen and pelvis. Patient is incontinent at baseline though the nurses have noticed darkening or urinary color. So llamas was ordered. Objective Physical Examination General Exam: Positive: Cooperative, No Acute Distress, Other (non communicative, blind.) Eye Exam: Positive: Other Eye Symptoms (left eye shut, right eye abnormal. ) ENT Exam: Positive: Atraumatic, Mucous membr. moist/pink Neck Exam: Positive: Supple Chest Exam: Positive: Clear to auscultation, Normal air movement Heart Exam: Positive: Normal S1, Normal S2, Regular Rhythm, Tachycardic Telemetry: Positive: No significant arrhythmia Abdomen Exam: Positive: BS Hypoactive, Other (distended. ), Tenderness Extremity Exam: Positive: Other ( atrophied and abnormal both extremities.) Psych Exam: Positive: Other (severe mental retardation) Assessment /Plan Problems (1) Abdominal distension Status: Acute Problem Text: With emesis of 200 cc of bile mixed ? fecal matter ct abdomen possible small bowel obstruction and perforation , fecal stasis in colon , hold feeds, NG tube, llamas consulted Dr Castro , Dr Spaulding following. cefuroxime changed to Zosyn for anaerobic coverage. (2) Fever Status: Acute Problem Text: Etiology undetermined at this point Thought to be post Op fever due to pneumonitis ? aspiration pneumonitis all cultures have been sent out patient empirically started on vancomycin and cefuroxime was continued. UA clean , Resp viral panel negative, CSF with elevated protein to 100 and WBC to 1050 [place] [address], gram stainof csf negative, cultures pending. ID has been consulted by Dr Bearden. Dr Spaulding to see also. (3) Obstructed CONSERVATION SCIENCE TEACHER shunt Status: Acute Problem Text: abnormal function of CONSERVATION SCIENCE TEACHER shunt which was replaced on 01/16/17 no issues management as per neurosurgery. (4) Congenital hydrocephalus Status: Chronic (5) Developmental disability Status: Chronic Problem Text: continue home meds. (6) Blind Status: Chronic (7) Seizure disorder Status: Chronic Problem Text: Had a seizure this am so was loaded with iv keppra 500 mg. (8) HIRAL (acute kidney injury) Status: Acute Problem Text: possibly prerenal will continue with IVF. (9) Subcutaneous emphysema Status: Acute Problem Text: post procedural emphysema. Plan/VTE VTE Prophylaxis Ordered?: Yes Plan/Urinary Catheter Reason for insertion/continuin: Critical Pt monitoring Disposition Hospitalist service will sign off now. Once pateint comes out of ICU please reconsult us if required. VS, I&O, 24H, Fishbone Vital Signs/I&O Vital Signs Date Time Temp Pulse Resp B/P Pulse Ox O2 Delivery O2 Flow Rate FiO2 01/18/17 06:00 103.9 119 16 140/80 99 Room Air 01/17/17 04:00 2.0 01/17/17 01:55 28 I&O- Last 24 Hours up to 6 AM 01/18/17 06:00 Intake Total 1325 ml Balance 1325 ml Laboratory Data 24H LABS Laboratory Tests 2 01/17/17 16:54: Urine Amorphous Sediment , Urine Appearance CLEAR, Urine Color YELLOW, Urine pH 6.0, Urine Specific Marcy 1.012, Urine Protein NEGATIVE, Urine Glucose (UA) 1+ H, Urine Ketones NEGATIVE, Urine Urobilinogen 0.2, Urine Bilirubin NEGATIVE, Urine Leukocyte Esterase NEGATIVE, Urine Bacteria (Auto) NEGATIVE, Urine Blood NEGATIVE, Urine Calcium Carbonate Cryst(Auto) , Urine Calcium Oxalate Cryst ( Auto) , Urine Calcium Phosphate Freda (Auto) , Urine Cellular Casts , Urine Cystine Crystals , Urine Granular Casts (Auto) , Urine Hyaline Casts (Auto) 0, Urine Leucine Crystals , Urine Mucus (Auto) SMALL, Urine Nitrite NEGATIVE, Urine Oval Fat Bodies (Auto) , Urine RBC (Auto) 0, Urine Renal Epithelial Cells , Urine Sperm (Auto) , Urine Squamous Epithelial Cells 0, Urine Transitional Epithelial Cells , Urine Trichomonas (Auto) , Urine Triple Phosphate Cryst (Auto ) , Urine Tyrosine Crystals , Urine Uric Acid Crystals (Auto) , Urine WBC (Auto ) 0, Urine Waxy Casts (Auto) , Urine Yeast-Like Cells (Auto) 01/18/17 07:17: Blood Urea Nitrogen 13, Creatinine 1.48H, Sodium Level 137, Potassium Level 3.7 , Chloride Level 99, Carbon Dioxide Level 13L, Calcium Level 8.4L, Aspartate Amino Transf (AST/SGOT) 22, Alanine Aminotransferase (ALT/SGPT) 31, Alkaline Phosphatase 92, Total Bilirubin 0.8#, Total Protein 7.2, Albumin 3.6, Albumin/ Globulin Ratio 1.00, Anion Gap 25H, Basophils (Manual) 2, Glomerular Filtration Rate > 60.0, Lymphocytes (Manual) 13L, Monocytes (Manual) 2, Neutrophils 83H, Platelet Estimate NORMAL, Red Blood Cell Morphology NORMAL CBC/BMP Laboratory Tests 01/18/17 07:17 Calcium Level 8.4 L, Aspartate Amino Transf (AST/SGOT) 22, Alanine Aminotransferase (ALT/SGPT) 31, Alkaline Phosphatase 92, Total Bilirubin 0.8 #, Total Protein 7.2, Albumin 3.6, Red Blood Count 5.04, Mean Corpuscular Volume 93.1, Mean Corpuscular Hemoglobin 30.4, Mean Corpuscular Hemoglobin Concent 32.7 , Red Cell Distribution Width 12.5 Microbiology Microbiology 01/17/17 Blood Culture, Received Pending 01/17/17 Blood Culture, Received Pending 01/17/17 Gram Stain - Final, Resulted 01/17/17 CSF Culture, Resulted Pending 01/18/17 Respiratory Virus Panel (PCR) ([facility]) - Final, Complete LILIA TAN MD Jan 18, 2017 10:30
--- NOTE | 2017-01-18 11:53 | REP ---
Clinical: Abdominal distension. Findings: Pneumoperitoneum is appreciated along with severely dilated stomach and small bowel with suspected collapsed small bowel in the right mid/lower quadrant along with normal caliber colon and demonstrating diffuse fecal stasis. Findings suggest small bowel obstruction with perforation however the exact point of obstruction or perforation are not clearly delineated but may be within the right mid to lower abdomen. A ventriculoperitoneal shunt is identified extending into the pelvis with subcutaneous emphysema tracking along its course through the anterior abdominal wall and superiorly and superficially along the subcutaneous tissues to the lower chest. Liver, spleen, pancreas, gallbladder, bilateral adrenal glands and kidneys are normal for noncontrast evaluation. A nasogastric tube is identified within the stomach and the distal esophagus as well as stomach appear distended and fluid-filled. Pelvis demonstrates collapsed bladder with nondependent air likely related to Barbour catheterization. Musculoskeletal structures demonstrate congenital/degenerative changes to the pelvis and hips compatible with cerebral palsy. Impression: 1. Significantly distended stomach and small bowel along with pneumoperitoneum suggests obstruction and perforation. The entire colon is normal caliber and stool filled consistent with fecal stasis and constipation. 2. Subcutaneous emphysema likely related to the pneumoperitoneum tracts along the ventriculoperitoneal shunt in the subcutaneous tissues of the right abdominal wall and right lower chest. 3. Trace lower lobe atelectasis. Signed by All Nguyen MD 01/18/2017 11:45 A
[2017-01-18] MEDS: PIPERACILLIN/TAZOBACTAM SOD 3.375 GM in D5W MINI-BAG PLUS 50 ML IV SCH ×2 (13:00→18:19)
[2017-01-18] MEDS ORDERED: D5W/0.9% SODIUM CHLORIDE 1,000 ML IV SCH (13:30)
[2017-01-18 13:59] LABS: ABG HCO3 21.6 MEQ/L (22.0-26.0); ABG PARTIAL PRESSURE CO2 30.4 mmHg (35.0-45.0); ABG PARTIAL PRESSURE O2 90.1 mmHg (75.0-100.0); ABG STANDARD HCO3 23.7 MEQ/L (22.0-26.0); ABG TOTAL CO2 22.6 MEQ/L (22.0-29.0)
--- NOTE | 2017-01-18 14:40 | PHACANCOPD ---
PHARMACY VANCOMYCIN DOSING Pt Demographics Demographics Patient Age:26 , Weight:45.500 , Gender: male Adjusted Body Weight Date: 01/18/17, Adjusted Body Weight: Kg Events Past 24 Hours Events Past 24 Hours: YES: Elevation in WBC, Fever, NO: Change in CrCl, Dialysis, Diuretic Therapy, Other, Pending Diagnostics, Pending Procedures Vancomycin Vancomycin indication: MENIGITIS Vancomycin Target Ranges: 15-20 mcg/ml Vancomycin Load Y/N: Yes Load Dose Date Time Vancomycin Load Dose: 1000MG Date: 01/17/17 Time: 1999 Vancomycin Dose Date: 01/18/17. Current Vancomycin Dose: [750MG IV Q12@09] Intermittent Dosing?: No Labs Labs Item Value Date Time White Blood Count 11.6 K/mm3 H 01/16/17 2045 White Blood Count 12.3 K/mm3 H 01/17/17 0441 White Blood Count 14.3 K/mm3 H 01/18/17 0717 Creatinine 1.11 MG/DL 01/17/17 0441 Creatinine 1.48 MG/DL H 01/18/17 0717 Vital Signs Label Value Date Time Patient Temperature 103.9 degrees F 01/18/17 0600 Temperature Source Rectal 01/18/17 0600 Patient Temperature 103.4 degrees F 01/18/17 0800 Temperature Source Rectal 01/18/17 0800 Patient Temperature 100.9 degrees F 01/18/17 1203 Temperature Source Tympanic 01/18/17 1203 Micro Microbiology 01/17/17 Blood Culture, Received Pending 01/17/17 Blood Culture, Received Pending 01/17/17 Gram Stain - Final, Resulted 01/17/17 CSF Culture, Resulted Pending 01/18/17 Respiratory Virus Panel (PCR) ([facility]) - Final, Complete Creatinine Clearance Date:01/18/17. Creatinine Clearance: . Assessment and Plan Maintaining Current Dose?: Yes Reason for dose change: No Dose Change Pharmacist Note Pharmacist Note Date: 01/18/17. Pharmacist note: Patient is being treated for possible meningitis with Vancomycin and Zosyn. He had a shunt replacement on 01/16/17 and has since spike fevers of above 103 degrees. He has no history of MRSA at our facility and never been on Vancomycin here either. He was given Vancomycin 1000mg last evening at 1999. Today we started him on Vancomycin 750mg IV q12h. We will continue to monitor patient and make adjustments as necessary. [facility] Jan 18, 2017 14:40
[2017-01-18 17:31] LABS: ANION GAP 8 MEQ/L (8-16); BLOOD UREA NITROGEN 13 MG/DL (7-18); CALCIUM LEVEL 8.1 MG/DL (8.5-10.1); CARBON DIOXIDE LEVEL 26 MEQ/L (21-32); CHLORIDE LEVEL 99 MEQ/L (98-107); CREATININE FOR GFR 1.03 MG/DL (0.70-1.30); GLOMERULAR FILTRATION RATE > 60.0 (>60); GLUCOSE, FASTING 148 MG/DL (70-105); POTASSIUM SERUM 3.9 MEQ/L (3.5-5.1); SODIUM LEVEL 133 MEQ/L (136-145)
--- NOTE | 2017-01-18 20:43 | CCN ---
DATE: 01/17/2017 Mr. Waddell is a 26-year-old white male with a past medical history notable for severe developmental delay. He is nonverbal, blindness, seizure disorder and chronic hydrocephalus, who was admitted yesterday after experiencing a fall and had a mechanical breakdown of his shunt. NOTE: I had been contacted by Dr. Mauro around 1:00 a.m. today from the operating room as he was concerned that Mr. Waddell would not be extubated after having a repair of his ventriculoperitoneal (ELECTROPHYSIOLOGY NURSE PRACTITIONER) shunt. At the time, I was under the impression that I was being consulted as an fish icer if he was on mechanical ventilation. I had asked to be contacted from the postanesthesia care unit if he was not extubateable and I would come in to manage the respiratory failure. It turns out that he was extubated in the PACU and "woke up PAR in the best ever shape in his life." I was appropriately not contacted. When I came in this morning, he was eating, was on room air, had a normal blood pressure, and was at his baseline mental status. I spoke to the intensive care unit (ICU) nurse and there were no issues that required an fish icer. I then contacted the hospitalist service to take over as client service consultant for medical management for the attending of Dr. Mauro. Dr. Jammie Kwong graciously agreed and saw the patient today. At the time that she saw him, he was doing very well. He actually did very well until later this afternoon when he had a temperature spike to 103.6 and had appropriate compensatory increased respiratory rate and heart rate. Apparently, there was some confusion at that time as to who was the medical concierge or Dr. Mauro receives a phone call about the fever because of being the attending. A chest CT scan was ordered that was unremarkable. We had a chest x-ray that was unremarkable. He did have a small amount of pneumoperitoneum, which can be expected given that he had a ELECTROPHYSIOLOGY NURSE PRACTITIONER shunt redone yesterday. He also had a small amount of subcutaneous air in the right anterior chest, which again is expected as postoperative. I was then contacted by nursing given the confusion over who was the participating medical service, and I ordered a one time dose of vancomycin given that he just had surgery. I informed nursing that I was coming in for another patient and I would evaluate him at that time. He also was not on any pain medications, which likely contributed to his tachycardia. I subsequently got another call from one of the nurses and his tachycardia was better and his fever was better, now at 102.6, but he still had a heart rate in the 140s to 150s range. It was at that time that I learned that he was not on any pain medications and gave him a dose of morphine and again told nursing that I was coming in for another patient and would evaluate him at that time. Mr. Waddell is currently lying in bed in no acute distress. He is at his normal baseline, which is nonverbal. There are no acute examination findings. He remains on room air and he remains with good blood pressure. ALLERGIES: LATEX. HOME MEDICATIONS: - Topamax 100 mg by mouth three times a day - omeprazole 40 mg by mouth daily - minocycline 100 mg by mouth daily - chewable vitamin one by mouth daily - DOK 100 mg by mouth daily - topiramate 100 mg by mouth three times a day - montelukast 10 mg by mouth daily OBJECTIVE: PHYSICAL EXAMINATION: GENERAL: Mr. Waddell is lying in bed in no acute distress. His temperature is 101.1 rectally, pulse 124, blood pressure 104/64 with a mean arterial pressure of 88, SpO2 of 96% on room air and respiratory rate in the low 20s. HEENT: Anicteric. I could not truly ascertain a good view of the pupils to assess response. Nares patent bilaterally. Moist mucosa. Oropharynx: Protruding tongue with some residual food on it and mildly dry. NECK: Supple without jugular venous distention (JVD). No thyromegaly or masses. Trachea is midline. CHEST: Mild subcutaneous air on the right chest anteriorly. Otherwise, normal shape. LUNGS: Symmetric excursion. Good air entry. No wheeze, rhonchi or crackle on tidal excursion. Normal I:E. No accessory muscle usage or retractions. CARDIOVASCULAR: Tachycardic, regular rhythm. Normal S1, S2. No murmur, rub or gallop appreciated. ABDOMEN: Positive bowel sounds. Soft, does not appear tender. No hepatosplenomegaly or masses appreciated. EXTREMITIES: Warm and well perfused. Strong pedal pulses bilaterally. No clubbing, cyanosis, or edema. Normal capillary refill. Notable for contractures. LABORATORY DATA: Electrolytes from this morning showed a sodium of 144, potassium 4.1, chloride 110, bicarbonate 25, anion gap 9, BUN 17, creatinine 1.1, glucose 134, calcium 8.7, total bilirubin 0.2, AST 13, ALT 31, alkaline phosphatase 84, total protein 6.6, albumin 3.3. Complete blood count (CBC) showed a hemoglobin of 14.2, hematocrit of 42.8, platelet count 213,000, white blood cell count 12,300 with a differential of 88% neutrophils, 6% lymphocytes, and 5% monocytes. Urinalysis showed clear with a pH of 6.0 and a specific gravity of 1.012, 1+ glucose, 0 WBC, negative bacteria. I reviewed the chest x-ray, as well as the report from earlier this evening. That x-ray showed normal appearing cardiac silhouette and pulmonary vascular shadows. Normal appearing mediastinum and hilar regions. No acute infiltrates. There is some subcutaneous air on the right anteriorly. I disagree with the x-ray reading that there is extensive pneumoperitoneum and feel that most of that is overlying bowel with a small amount of pneumoperitoneum. I compared it to the chest x-ray from 2015 and the findings were similar except for the very small region of pneumoperitoneum. This also correlates with the chest CT scan, which I reviewed along with the report. That CT scan showed normal-appearing cardiac silhouette and pulmonary vascular shadows. No mediastinal or hilar lymphadenopathy. No acute infiltrates. There is minimal chronic atelectasis in the left lower lobe. There is subcutaneous air on the right side of the chest anteriorly and a small, tiny area of pneumoperitoneum. ASSESSMENT: 1. Fever, postoperatively. There is no clear origin to his fever. We need to consider operative site. Also, the patient is a resident of [facility] ([facility]) where Coronavirus has been seen recently in numerous residents. No pneumonic process. The fever is not from atelectasis. 2. Postoperative day #1 status post ELECTROPHYSIOLOGY NURSE PRACTITIONER shunt revision. 3. Tachycardia. This is an appropriate physiologic response to his fever and likely pain. 4. Tachypnea. He has mild tachypnea. Again, this is a normal physiologic response to his fever. RECOMMENDATIONS: 1. We will send a respiratory panel. 2. We will start morphine 2 mg IV every 4 hours as needed.
[2017-01-19] VITALS (13 sets, daily range): BP systolic 90–123; BP diastolic 50–86
[2017-01-19] MEDS: PIPERACILLIN/TAZOBACTAM SOD 3.375 GM in D5W MINI-BAG PLUS 50 ML IV SCH ×4 (00:02→18:31)
--- NOTE | 2017-01-19 00:21 | EDDOCDS ---
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 Staff not sure if he had a kas2 seizure unwitnessed. Staff said he is not acting himself. FSBS 202 mg/dL. EMS states he is having periods of apnea. Adult Sepsis Screening: The patient does not have new or worsening altered mentation. Patient's respiratory rate is less than 22. Systolic blood pressure is greater than 100. Patient has a qSOFA score of 0- Negative Sepsis Screen. Suicide/Homicide risk assessment- Suicide/Homicide risk assessment- the patient denies having any suicidal and/or homicidal ideations and does not present with any other emotional, behavioral or mental health complaints. Suicide/Homicide risk assessment- the patient denies having any suicidal and/or homicidal ideations and does not present with any other emotional, behavioral or mental health complaints. Status: Patient is not a medical staff services coordinator or dependent. Transition of care: patient was not received from another setting of care. 19:54 Acuity: ROMELIA Level [address] [facility] 19:54 Method Of Arrival: Ambulance [facility] Triage Assessment: 20:02 General: Appears in no apparent distress, uncomfortable, well nourished, well groomed, kas2 Behavior is restless. Pain: Unable to use pain scale. Does not appear to understand pain scale. Pt Declines HIV testing. Neurological: Level of Consciousness is awake, lethargic. Cardiovascular: Capillary refill < 3 seconds Heart tones S1 S2 present Rhythm is sinus rhythm No ectopy. Chest pain is denied. Respiratory: Airway is patent Respiratory effort is even, unlabored, Respiratory pattern is regular, symmetrical. Derm: Skin is intact, Skin is dry, Skin is pale, Skin temperature is warm. 20:10 Respiratory: Breath sounds are clear bilaterally. Breath sounds are diminished cf2 bilaterally. GI: Abdomen is flat, non- distended Bowel sounds present X 4 quads. Historical: - Allergies: Latex; - Home Meds: 1. Topamax 100 mg Oral tab 1 tab TID 2. esomeprazole magnesium 40 mg Oral cpDR 1 cap once daily 3. minocycline 100 mg Oral cap 1 cap daily 4. chewable vitamin 1 tab daily 5. DOK 100 mg oral cap 1 cap 2 times per day 6. topiramate 100 mg oral tab TID 7. montelukast 10 mg oral tab 1 tab once daily - PMHx: Cerebral Palsy; Seizure Disorder; Asthma; cortical blindness; - PSHx: AV shunt on right 1993; bilateral hip surgery; - Social history: Smoking status: Patient states was never smoker of tobacco. Patient is speech impaired. Does not speak. - Family history: Not pertinent. - : The pt / caregiver states he / she is not on anticoagulants. Home medication list is obtained from the facility MAR. - Exposure Risk Screening:: None identified. Screenin:07 Screening information is obtained from residence staff. Fall risk: No risks identified. kas2 Assistance ADL's: Requires assistance with meal preparation, this assistance is provided by residence staff, bathing, assistance is provided by residence staff, dressing, assistance is provided by residence staff, toileting, assistance is provided by residence staff, medication administration, assistance is provided by residence staff. Abuse/DV Screen: The patient / caregiver reports he/she is: not in a situation that causes fear, pain or injury. Nutritional screening: No deficits noted. Advance Directives: Currently, there is no health care proxy. There is no active DNR order. There is no living will. There is no Power of Mutual Fund Sales Agent. home support is adequate. Assessment: 20:06 General: See triage note.. kas2 20:52 General: Appears in no apparent distress, well nourished, well groomed, Behavior is kas2 restless. Pain: Unable to use pain scale. Patient is non verbal. Neurological: Level of Consciousness is awake, alert. Cardiovascular: Rhythm is sinus rhythm No ectopy. Respiratory: Airway is patent Respiratory effort is even, unlabored, Respiratory pattern is regular, symmetrical. :. Derm: Skin is intact, Skin is dry, Skin is pale, Skin temperature is warm. 21:58 General: Appears in no apparent distress, Behavior is Patient is appropriate for his kas2 normal self as per mom.. Pain: Unable to use pain scale. Patient is unable to comprehend pain scale. Neurological: Level of Consciousness is awake, alert. Cardiovascular: Rhythm is sinus rhythm No ectopy. Respiratory: Airway is patent Respiratory effort is even, unlabored, Respiratory pattern is regular, symmetrical. Derm: Skin is intact, Skin is dry, Skin is pale, Skin temperature is warm. 22:30 General: Mom states patient is having apneic spells. SpO2 100% on 2L. Dr. Serrano in [facility] room assessing patient at this time. Patient wakes to sternal rub and moans. Airway patent. . 23:02 General: Anaestesiology in room wanting to intubate patient at this time. States there [facility] is not enough room so RN aid and anaestesiologist bagging patient to OR at this time.. Vital Signs: 20:02 BP 124 / 78; Pulse 66; Resp 18; Temp 98.6(TE); Pulse Ox 100% on 2 lpm NC; Weight 44.36 kas2 kg; Height 5 ft. (152.40 cm); Pain 0/10; 21:30 BP 128 / 82; Pulse 65; Resp 18; Temp 97.9(TE); Pulse Ox 100% on 2 lpm NC; Pain 0/10; kas2 22:55 BP 136 / 87; Pulse 66; Resp 16; Temp 98.9(TE); Pulse Ox 100% on 2 lpm NC; nb2 20:02 Body Mass Index 19.10 (44.36 kg, 152.40 cm) [facility] Vitals: 20:02 Log In Time N/A - ambulance arrival. [facility] ED Course: 19:47 Delmy Guzman RN is Primary Nurse. [facility] 19:47 Patient visited by Milady Mercado, Enrollment Manager. [facility] 19:47 Patient moved to 12 [facility] 19:48 Pau Shah is Private Physician. [facility] 19:49 Gonzalez Jj DO is Attending Physician. 11 19:49 Patient visited by Gonzalez Jj DO. cs11 19:56 Triage Initiated [facility] 20:10 Maintain field IV. Dressing intact. Site clean & dry. Gauge & site: 18G right forearm. cf2 No procedures done that require assistance. 20:11 Patient visited by Kenyatta Crockett RN. cf2 20:19 Patient visited by Delmy Guzman RN. kas2 20:37 Patient visited by Delmy Guzman RN. kas2 20:47 [facility] Payment Agreement was scanned into [employer] and attached to record. ks16 20:52 CT Head Without Contrast Returned. EDMS 20:54 Patient visited by Delym Guzman RN. kas2 20:54 Labs drawn. (by ED staff). Sent per order to lab. kas2 21:32 Patient visited by Delmy Guzman RN. kas2 21:57 Sed Rate Sent. kas2 21:59 Patient visited by Delmy Guzman RN. kas2 22:18 Jonatan Mauro is Hospitalizing Provider. cs11 23:13 Patient moved to TR5 ms18 23:20 Patient visited by Delmy Guzman RN. kas2 23:20 The patient / caregiver is instructed regarding the plan of care and ED course. [facility] 01/17 11:51 T-Sheet-- Draft Copy was scanned into [employer] and attached to record. gb 11:52 Radiology Report was scanned into [employer] and attached to record. gb Order Results: Lab Order: CBC with Diff; SPEC'M 01/16/17 20:45 Test: WHITE BLOOD COUNT; Value: 11.6; Range: 4.0-10.0; Abnormal: Above high normal; Units: K/mm3; Status: F Test: RED BLOOD COUNT; Value: 5.25; Range: 4.30-6.10; Units: M/mm3; Status: F Test: HEMOGLOBIN; Value: 15.5; Range: 14.0-18.0; Units: g/dl; Status: F Test: HEMATOCRIT; Value: 46.8; Range: 42.0-52.0; Units: %; Status: F Test: MEAN CORPUSCULAR VOLUME; Value: 89.1; Range: 80.0-96.0; Units: fl; Status: F Test: MEAN CORPUSCULAR HEMOGLOBIN; Value: 29.5; Range: 27.0-33.0; Units: pg; Status: F Test: MEAN CORPUSCULAR HGB CONC; Value: 33.1; Range: 32.0-36.5; Units: g/dl; Status: F Test: RED CELL DISTRIBUTION WIDTH; Value: 12.2; Range: 11.5-14.5; Units: %; Status: F Test: PLATELET COUNT, AUTOMATED; Value: 200; Range: 150-450; Units: k/mm3; Status: F Test: NEUTROPHILS %; Value: 89.4; Range: 36.0-66.0; Abnormal: Above high normal; Units: %; Status: F Test: LYMPH %; Value: 6.7; Range: 24.0-44.0; Abnormal: Below low normal; Units: %; Status: F Test: MONO %; Value: 2.5; Range: 0.0-5.0; Units: %; Status: F Test: EOS %; Value: 0.7; Range: 0.0-3.0; Units: %; Status: F Test: BASO %; Value: 0.1; Range: 0.0-1.0; Units: %; Status: F Test: LARGE UNSTAINED CELL %; Value: 0.6; Range: 0.0-4.0; Units: %; Status: F Test: NEUTROPHILS #; Value: 10.3; Range: 1.8-7.7; Abnormal: Above high normal; Units: K/mm3; Status: F Test: LYMPH #; Value: 0.8; Range: 1.5-6.5; Abnormal: Below low normal; Units: K/mm3; Status: F Test: MONO #; Value: 0.3; Range: 0.0-0.8; Units: K/mm3; Status: F Test: EOS #; Value: 0.1; Range: 0.0-0.50; Units: K/mm3; Status: F Test: BASO #; Value: 0.0; Range: 0.0-0.2; Units: K/mm3; Status: F Test: LARGE UNSTAINED CELL #; Value: 0.1; Range: 0.0-0.4; Units: K/mm3; Status: F Lab Order: MED Profile; SPEC'M 01/16/17 20:45 Test: GLUCOSE, FASTING; Value: 191; Range: 70-105; Abnormal: Above high normal; Units: MG/DL; Status: F Test: BLOOD UREA NITROGEN; Value: 18; Range: 7-18; Units: MG/DL; Status: F Test: CREATININE FOR GFR; Value: 1.19; Range: 0.70-1.30; Units: MG/DL; Status: F Test: GLOMERULAR FILTRATION RATE; Value: > 60.0; Range: >60; Status: F Test: SODIUM LEVEL; Value: 145; Range: 136-145; Units: MEQ/L; Status: F Test: POTASSIUM SERUM; Value: 3.8; Range: 3.5-5.1; Units: MEQ/L; Status: F Test: CHLORIDE LEVEL; Value: 110; Range: 98-107; Abnormal: Above high normal; Units: MEQ/L; Status: F Test: CARBON DIOXIDE LEVEL; Value: 25; Range: 21-32; Units: MEQ/L; Status: F Test: ANION GAP; Value: 10; Range: 8-16; Units: MEQ/L; Status: F Test: CALCIUM LEVEL; Value: 9.0; Range: 8.5-10.1; Units: MG/DL; Status: F Test Note: ; Units are mL/min/1.73 m2 Chronic Kidney Disease Staging per NKF: Stage I & II GFR >=60 Normal to Mildly Decreased Stage III GFR 30-59 Moderately Decreased Stage IV GFR 15-29 Severely Decreased Stage V GFR <15 Very Little GFR Left ESRD GFR <15 on CUSTOMER ACCOUNTS ADVISOR Lab Order: Liver Profile; [facility] 01/16/17 20:45 Test: AST/SGOT; Value: 13; Range: 15-37; Abnormal: Below low normal; Units: U/L; Status: F Test: ALT/SGPT; Value: 37; Range: 12-78; Units: U/L; Status: F Test: ALKALINE PHOSPHATASE; Value: 99; Range: 45-117; Units: U/L; Status: F Test: BILIRUBIN,TOTAL; Value: 0.2; Range: 0.2-1.0; Units: MG/DL; Status: F Test: BILIRUBIN,DIRECT; Value: < 0.1; Range: 0.0-0.2; Units: MG/DL; Status: F Test: TOTAL PROTEIN; Value: 7.5; Range: 6.4-8.2; Units: GM/DL; Status: F Test: ALBUMIN; Value: 3.9; Range: 3.2-5.2; Units: GM/DL; Status: F Test: ALBUMIN/GLOBULIN RATIO; Value: 1.08; Range: 1.00-1.93; Status: F Lab Order: Pt & Aptt; [facility] 01/16/17 20:45 Test: PROTHROMBIN TIME; Value: 13.7; Range: 12.3-14.5; Units: SECONDS; Status: F Test: INR; Value: 1.04; Status: F Test: PARTIAL THROMBOPLASTIN TIME; Value: 26.0; Range: 26.6-37.1; Abnormal: Below low normal; Units: SECONDS; Status: F Test Note: ; THERAPUTIC HUMAN INR VALUES INDICATIONS NORMAL RANGES PROPHYLAXIS/TREATMENT OF: VENOUS THROMBOSIS 2.0-3.0 PULMONARY EMBOLISM 2.0-3.0 PREVENTION OF SYSTEMIC EMBOLISM FROM: TISSUE HEART VALVES 2.0-3.0 ACUTE MYOCARDIAL INFARCTION 2.0-3.0 VALVULAR HEART DISEASE 2.0-3.0 ATRIAL FIBRILLATION 2.0-3.0 MECHANICAL VALVES(HIGH RISK) 2.5-3.5 RECURRENT MYOCARDIAL INFARCTION 2.5-3.5 Lab Order: Sed Rate; [facility] 01/16/17 20:45 Test: ERYTHROCYTE SEDIMENTATION RATE; Value: 3; Range: 0-15; Units: mm/hr; Status: F Lab Order: CSF GLUCOSE; [facility] 01/17/17 01:08 Test: GLUCOSE CSF; Value: 101; Range: 40-75; Abnormal: Above high normal; Units: MG/DL; Status: F Test: CSF TUBE# GLU; Value: TUBE 1; Status: F Lab Order: CSF T PROTEIN; [facility] 01/17/17 01:08 Test: TOTAL PROTEIN,CSF; Value: 100.8; Range: 15-45; Abnormal: Above high normal; Units: MG/DL; Status: F Test: CSF TUBE# TP; Value: TUBE 1; Status: F Lab Order: CELL COUNT/DIFF CSF; [facility] 01/17/17 01:08 Test: CSF TUBE# CELL CNT; Value: TUBE 1; Status: F Test: COLOR, CSF; Value: RED; Range: COLORLESS; Abnormal: Above high normal; Status: F Test: APPEARANCE, CSF; Value: CLOUDY; Range: CLEAR; Abnormal: Above high normal; Status: F Test: WBC CSF AUTO; Value: 1050; Range: 0-10; Abnormal: Above high normal; Units: /mm3; Status: F Test: RBC CSF AUTO; Value: 51209; Range: 0-0; Abnormal: Above high normal; Units: /mm3; Status: F Test: NEUTROPHILS, CSF AUTO %; Value: 77.6; Range: 0-0; Abnormal: Above high normal; Units: %; Status: F Test: LYMPHOCYTES, CSF AUTO %; Value: 15.0; Range: 0-0; Abnormal: Above high normal; Units: %; Status: F Test: MONOCYTES, CSF AUTO %; Value: 7.2; Range: 0-0; Abnormal: Above high normal; Units: %; Status: F Test: EOSINOPHILS, CSF AUTO %; Value: 0.3; Range: 0-0; Abnormal: Above high normal; Units: %; Status: F Radiology Order: CT Head Without Contrast Test: CT Head Without Contrast REASON FOR EXAMINATION: aloc; ; CT of the head; Clinical history: loss of consciousness.; Comparison: 04/06/2015.; Protocol: Multiple axial CT images obtained with 5 mm slice thickness were obtained through the head; without administration of contrast.; Findings: The posterior horns of the lateral ventricles are severely and large, but grossly stable si; nce the prior study. A shunt catheter remains in in place, medial to the posterior horn of the right; lateral ventricle. There is no evidence of acute hemorrhage or infarct. There is no midline shift, ma; ss effect, or extra-axial fluid collection. The osseous structures are unremarkable. The visualized p; aranasal sinuses and mastoid air cells are clear.; Impression:; 1. No acute hemorrhage or infarct.; 2. 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 Shunt catheter is in place.; ; Outcome: 01/16 22:18 Decision to Hospitalize by Provider. cs11 23:19 Discharge Assessment: patient administered narcotics - no. Admitted to OR accompanied kas2 by nurse, accompanied by tech, family with patient, via stretcher, with oxygen, on monitor, with chart. critical Condition: deteriorated. CT Study completed. Property :Personal belongings accompany Pt. 23:20 The following High Risk Discharge criteria are identified:. kas2 23:20 Patient left the ED. [facility] Signatures: Dispatcher [employer] Holly Annria, Reg Reg gb Анна Gonzalez, DO DO cs11 Milady Mercado, Enrollment Manager Unit jlm Francheska Guzman,RN RN ms18 Ronda Melendrez, Reg Reg ks16 Delmy Guzman,OZ RN [facility] Kenyatta Crockett RN RN cf2 Светлана Lutz nb2 Corrections: (The following items were deleted from the chart) 23:14 23:08 General: kas2 kas2 23:17 22:30 General: Mom states patient having apneic spells when laying in bed. SpO2 100% on kas2 2L charge loader. Airway patent and respiratory even and unlabored. RN performed sternal rub and patient wakes up and moans. Dr. Mora in room assessing patient at this time.. kas2 Chart Complete MTDD
--- NOTE | 2017-01-19 00:21 | EDDOCDS ---
Physician Documentation [facility] Name: Avinash Waddell Age: 26 yrs Sex: Male : 1990 Arrival Date: 01/16/2017 Time: 19:46 Bed TR5 Private MD: Pau Shah E Disposition: 01/16/17 22:18 Hospitalization ordered by Jonatan Mauro for Inpatient Admission. 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 - Bed requested for Admit. - Status is Inpatient Admission. [facility] - Condition is Stable. - Problem is new. - Symptoms have improved. Historical: - Allergies: Latex; - Home Meds: 1. Topamax 100 mg Oral tab 1 tab TID 2. esomeprazole magnesium 40 mg Oral cpDR 1 cap once daily 3. minocycline 100 mg Oral cap 1 cap daily 4. chewable vitamin 1 tab daily 5. DOK 100 mg oral cap 1 cap 2 times per day 6. topiramate 100 mg oral tab TID 7. montelukast 10 mg oral tab 1 tab once daily - PMHx: Cerebral Palsy; Seizure Disorder; Asthma; cortical blindness; - PSHx: AV shunt on right 1992; bilateral hip surgery; - Social history: Smoking status: Patient states was never smoker of tobacco. Patient is speech impaired. Does not speak. - Family history: Not pertinent. - : The pt / caregiver states he / she is not on anticoagulants. Home medication list is obtained from the facility [facility]. - Exposure Risk Screening:: None identified. Vital Signs: 01/16 20:02 BP 124 / 78; Pulse 66; Resp 18; Temp 98.6(TE); Pulse Ox 100% on 2 lpm NC; Weight 44.36 kas2 kg / 97.8 lbs; Height 5 ft. (152.40 cm); Pain 0/10; 21:30 BP 128 / 82; Pulse 65; Resp 18; Temp 97.9(TE); Pulse Ox 100% on 2 lpm NC; Pain 0/10; kas2 22:55 BP 136 / 87; Pulse 66; Resp 16; Temp 98.9(TE); Pulse Ox 100% on 2 lpm NC; nb2 20:02 Body Mass Index 19.10 (44.36 kg, 152.40 cm) kas2 MDM: 20:14 CT Head Without Contrast Ordered. EDMS 20:26 IV Saline Lock ordered. cs11 20:26 CBC with Diff Ordered. EDMS 20:26 MED Profile Ordered. EDMS 20:26 Liver Profile Ordered. EDMS 20:26 Pt & Aptt Ordered. EDMS 20:41 Financial registration complete. ks16 20:47 [facility] Payment Agreement was scanned into [employer] and attached to record. ks16 21:25 CBC with Diff Reviewed. cs11 21:25 MED Profile Reviewed. cs11 21:25 Liver Profile Reviewed. cs11 21:25 Pt & Aptt Reviewed. cs11 21:25 CT Head Without Contrast Reviewed. cs11 21:53 Shunt Series Ordered. EDMS 21:54 Sed Rate Ordered. EDMS 01/17 00:32 CSF GLUCOSE Ordered. EDMS 00:32 CSF T PROTEIN Ordered. EDMS 00:32 CELL COUNT/DIFF CSF Ordered. EDMS 00:32 CSF CULTURE AND GRAM STAIN Ordered. EDMS 01:14 CSF GLUCOSE Ordered. EDMS 01:14 CSF T PROTEIN Ordered. EDMS 01:14 CELL COUNT/DIFF CSF Ordered. EDMS 01:14 CSF CULTURE AND GRAM STAIN Ordered. EDMS 01:42 CBC WITH DIFFERENTIAL Ordered. EDMS 01:42 COMPLETE COMPHRENSIVE METABOLI Ordered. EDMS 01:45 NPO DIET ordered. EDMS 01:52 Skull, complete Ordered. EDMS 01:53 CT Head without contrast Ordered. EDMS 11:51 T-Sheet-- Draft Copy was scanned into [employer] and attached to record. gb 11:52 Radiology Report was scanned into [employer] and attached to record. gb Signatures: Dispatcher [employer] EDMS Maggie Montana, Reg Reg gb Gonzalez Jj, DO DO cs11 Ronda Melendrez, Reg Reg ks16 Delmy Guzman,RN RN kas2 The chart was reviewed and I authenticate all verbal orders and agree with the evaluation and treatment provided.Attachments: 01/16 20:47 [facility] Payment Agreement 01/17 11:51 T-Sheet-- Draft Copy gb Chart Complete MTDD
--- NOTE | 2017-01-19 00:21 | EDDOCDS ---
Physician Documentation [facility] Name: Avinash Waddell Age: 26 yrs Sex: Male : 1990 Arrival Date: 01/16/2017 Time: 19:46 Bed TR5 Private MD: Pau Shah E Disposition: 01/16/17 22:18 Hospitalization ordered by Jonatan Mauro for Inpatient Admission. 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 - Bed requested for Admit. - Status is Inpatient Admission. [facility] - Condition is Stable. - Problem is new. - Symptoms have improved. Historical: - Allergies: Latex; - Home Meds: 1. Topamax 100 mg Oral tab 1 tab TID 2. esomeprazole magnesium 40 mg Oral cpDR 1 cap once daily 3. minocycline 100 mg Oral cap 1 cap daily 4. chewable vitamin 1 tab daily 5. DOK 100 mg oral cap 1 cap 2 times per day 6. topiramate 100 mg oral tab TID 7. montelukast 10 mg oral tab 1 tab once daily - PMHx: Cerebral Palsy; Seizure Disorder; Asthma; cortical blindness; - PSHx: AV shunt on right 1992; bilateral hip surgery; - Social history: Smoking status: Patient states was never smoker of tobacco. Patient is speech impaired. Does not speak. - Family history: Not pertinent. - : The pt / caregiver states he / she is not on anticoagulants. Home medication list is obtained from the facility [facility]. - Exposure Risk Screening:: None identified. Vital Signs: 01/16 20:02 BP 124 / 78; Pulse 66; Resp 18; Temp 98.6(TE); Pulse Ox 100% on 2 lpm NC; Weight 44.36 kas2 kg / 97.8 lbs; Height 5 ft. (152.40 cm); Pain 0/10; 21:30 BP 128 / 82; Pulse 65; Resp 18; Temp 97.9(TE); Pulse Ox 100% on 2 lpm NC; Pain 0/10; kas2 22:55 BP 136 / 87; Pulse 66; Resp 16; Temp 98.9(TE); Pulse Ox 100% on 2 lpm NC; nb2 20:02 Body Mass Index 19.10 (44.36 kg, 152.40 cm) kas2 MDM: 20:14 CT Head Without Contrast Ordered. EDMS 20:26 IV Saline Lock ordered. cs11 20:26 CBC with Diff Ordered. EDMS 20:26 MED Profile Ordered. EDMS 20:26 Liver Profile Ordered. EDMS 20:26 Pt & Aptt Ordered. EDMS 20:41 Financial registration complete. ks16 20:47 [facility] Payment Agreement was scanned into [employer] and attached to record. ks16 21:25 CBC with Diff Reviewed. cs11 21:25 MED Profile Reviewed. cs11 21:25 Liver Profile Reviewed. cs11 21:25 Pt & Aptt Reviewed. cs11 21:25 CT Head Without Contrast Reviewed. cs11 21:53 Shunt Series Ordered. EDMS 21:54 Sed Rate Ordered. EDMS 01/17 00:32 CSF GLUCOSE Ordered. EDMS 00:32 CSF T PROTEIN Ordered. EDMS 00:32 CELL COUNT/DIFF CSF Ordered. EDMS 00:32 CSF CULTURE AND GRAM STAIN Ordered. EDMS 01:14 CSF GLUCOSE Ordered. EDMS 01:14 CSF T PROTEIN Ordered. EDMS 01:14 CELL COUNT/DIFF CSF Ordered. EDMS 01:14 CSF CULTURE AND GRAM STAIN Ordered. EDMS 01:42 CBC WITH DIFFERENTIAL Ordered. EDMS 01:42 COMPLETE COMPHRENSIVE METABOLI Ordered. EDMS 01:45 NPO DIET ordered. EDMS 01:52 Skull, complete Ordered. EDMS 01:53 CT Head without contrast Ordered. EDMS 11:51 T-Sheet-- Draft Copy was scanned into [employer] and attached to record. gb 11:52 Radiology Report was scanned into [employer] and attached to record. gb Signatures: Dispatcher [employer] EDMS Maggie Montana, Reg Reg gb Gonzalez Jj, DO DO cs11 Ronda Melendrez, Reg Reg ks16 Delmy Guzman,RN RN kas2 The chart was reviewed and I authenticate all verbal orders and agree with the evaluation and treatment provided.Attachments: 01/16 20:47 [facility] Payment Agreement 01/17 11:51 T-Sheet-- Draft Copy gb Chart Complete MTDD
[2017-01-19] MEDS: KCL 20MEQ IN D5/0.45NS 1000ML 1,000 ML IV SCH ×3 (06:39→20:44)
[2017-01-19] MEDS: TOPIRAMATE (TopAMAX) 100 MG TAB PO SCH ×3 (08:33→20:44)
[2017-01-19] MEDS: levETIRAcetam INJection 500 MG in D5W MINI-BAG PLUS 100 ML IV SCH ×2 (08:33→20:44)
[2017-01-19] MEDS: VANCOMYCIN HCL 750 MG, VIAL MATE ADAPTER 1 EACH in D5W 250 ML IV SCH ×2 (08:34→20:44)
[2017-01-19] MEDS: BISACODYL 10 MG SUPP PR SCH ×2 (10:14→20:44)
[2017-01-19 12:46] LABS: DIFF SLIDE NUMBER 152; MEAN CORPUSCULAR HEMOGLOBIN 30.4 pg (27.0-33.0); MEAN CORPUSCULAR HGB CONC 33.7 g/dl (32.0-36.5); MEAN CORPUSCULAR VOLUME 90.2 fl (80.0-96.0); PLATELET COUNT, AUTOMATED 178 k/mm3 (150-450); RED CELL DISTRIBUTION WIDTH 12.4 % (11.5-14.5); WHITE BLOOD COUNT 7.2 K/mm3 (4.0-10.0)
[2017-01-19 12:56] LABS: ANION GAP 8 MEQ/L (8-16); BLOOD UREA NITROGEN 12 MG/DL (7-18); CALCIUM LEVEL 7.7 MG/DL (8.5-10.1); CARBON DIOXIDE LEVEL 25 MEQ/L (21-32); CHLORIDE LEVEL 103 MEQ/L (98-107); CREATININE FOR GFR 1.11 MG/DL (0.70-1.30); GLOMERULAR FILTRATION RATE > 60.0 (>60); GLUCOSE, FASTING 105 MG/DL (70-105); POTASSIUM SERUM 3.9 MEQ/L (3.5-5.1); SODIUM LEVEL 136 MEQ/L (136-145)
[2017-01-19] MEDS: ACETAMINOPHEN TAB 650MG DOSE (2X325MG) PO PRN (16:07)
[2017-01-20] VITALS (8 sets, daily range): BP systolic 108–134; BP diastolic 56–82
[2017-01-20] MEDS: PIPERACILLIN/TAZOBACTAM SOD 3.375 GM in D5W MINI-BAG PLUS 50 ML IV SCH ×4 (01:13→18:28)
[2017-01-20] MEDS: KCL 20MEQ IN D5/0.45NS 1000ML 1,000 ML IV SCH (05:21)
--- NOTE | 2017-01-20 06:33 | RO ---
DATE OF PROCEDURE: 01/16/2017 and 01/17/2017 PREOPERATIVE DIAGNOSES: Coma, apnea, ventriculoperitoneal (FACILITY SECURITY OFFICER) shunt failure/disruption. POSTOPERATIVE DIAGNOSES: Coma, apnea, ventriculoperitoneal shunt failure/disruption, and operative disruption at two places. PROCEDURE: Placement of new [employer] Strata MR valve programmed at 1.5 and removal of ancient hardware except the ventricular catheter, which was retracted in the ventricle. SURGEON: Dr. Jonatan Mauro LIBRARY SCIENCE INSTRUCTOR SURGEON: Dr. Sacha Hameed for paracentesis for abdominal portion. ANESTHESIA: General. FINDINGS: Please see my emergency room note for preoperative evaluation and discussion. This 26-year-old gentleman with severe psychomotor retardation, nonverbal with bilateral hemiparesis was seen in the emergency room (ER) at the request of Dr. Jj with rapid decline of content and level of consciousness since 5 p.m. today, on 01/16/2017. At his baseline, he would not follow commands but, according to his mother and care attendants, he can be interactive and would tend to vocalize spontaneously and can eat pureed food. He was born premature with hydrocephalus, which was controlled with a FACILITY SECURITY OFFICER shunt which was revised once. No medical data or information about his two surgeries were available at this time. Patient has seizure disorder and, on my initial evaluation in the emergency room, he was comatose, had rapidly increasing episodes of apnea, eyelids were shut with blepharoplasty, the right was mid with sluggish reaction, if any. On pain, he would tend to thrash around with nonpurposeful movements of all limbs and appeared to have bilateral spastic hemiplegia. There was a huge, huge fluid collection in the soft tissue of the neck, probably filled with cerebrospinal fluid (CSF). The CT scan showed marked hydrocephalus of the occipital horns and that of the temporal horns. This was a significant change from his previous CT scans dating back to 2006, where it appeared he had a shunt in dependent right ventricle system, which appeared loculated. The ventricular system on the whole appeared to be loculated, as the left ventricular system was drained much except the frontal horns. Shunt continuity x-ray shows probable disruption of the catheter just proximal to the valve. Various options were discussed with the patient's mother. Grave outlook was discussed with her. She understood his chances of regaining former central nervous system (RADIO MECHANIC) excellence to his baseline are slim, and she understood he is an extremely high-risk candidate with a very high chance of persistent vegetative state and dependency on life support measures, worsening of seizure disorder, status epilepticus with or without surgery. Patient's mother understood that no guarantees of any kind could be given, and she was aware of the scope, expected outcome, sequelae, and all possible risks of surgery. Patient's mother and his care attendants are aware that the risks of surgery include, but are not limited to, , persistent coma, CSF leak, meningitis, worsening of seizure disorder, persistent vegetative state, loss of vital bodily functions, dependency on life support, failure of surgery or shunt hardware, need for multiple surgeries, infection, bleeding, and any catastrophic sequelae. Patient's mother wished to proceed with the surgery. I had called the operating room and made them aware of the urgent need for surgery, and he was taken to the operating room. DESCRIPTION OF PROCEDURE: Once in the operating room, general endotracheal anesthesia was given by the anesthesia service. The area of surgery was prepped and draped in the usual sterile fashion. The previous parieto-occipital incision was infiltrated with lidocaine 1% with epinephrine 1:100,000, and the incision was opened. There was a large CSF collection identified. As expected, the dome reservoir over the logan hole site was disconnected from the shunt valve. CSF was collected and sent for pathologic examination. He had freely flowing CSF from the logan hole beneath the dome reservoir, which was found not to be connected to the ventricular catheter, which had retracted into the ventricular system. No attempt was made to retrieve that catheter on account of dense scar tissue. A small corticectomy was performed, and a 7 cm angled ventricular catheter was then advanced into the ventricle space and this was connected to [employer] Strata MR valve and was programmed at 1.5. At this time, a para-midline incision was given in the abdomen by Dr. Hameed and a subcutaneous tunnel was created, through which the shunt tunnel passer and a kink-resistant peritoneal tube was then tunneled through this and connected to the shunt and secured with silk ties. The peritoneal catheter was then placed in the peritoneal cavity by Dr. Hameed. Patient tolerated the procedure satisfactorily and was transferred to the recovery room in stable condition. The blood loss was negligible. Operative findings were discussed with the patient's family in the waiting room.
[2017-01-20] MEDS: TOPIRAMATE (TopAMAX) 100 MG TAB PO SCH ×3 (08:41→21:27)
[2017-01-20] MEDS: BISACODYL 10 MG SUPP PR SCH ×2 (08:41→21:28)
[2017-01-20] MEDS: SENOKOT S TAB PO SCH ×2 (09:00→21:27)
[2017-01-20] MEDS: SIMETHICONE 80 MG CHEW TAB PO SCH ×4 (09:00→21:27)
[2017-01-20] MEDS: VANCOMYCIN HCL 750 MG, VIAL MATE ADAPTER 1 EACH in D5W 250 ML IV SCH ×2 (10:03→21:28)
[2017-01-20] MEDS: levETIRAcetam INJection 500 MG in D5W MINI-BAG PLUS 100 ML IV SCH (10:20)
--- NOTE | 2017-01-20 10:52 | REP ---
Clinical: Vomiting. Technique: Portable supine view of the abdomen and pelvis. Findings: Marked distension of the small and large bowel is appreciated. Small amounts of pneumoperitoneum cannot be excluded. A ventriculoperitoneal shunt extends into the abdomen and pelvis. Skeletal structures demonstrate deformities consistent with cerebral palsy. Impression: Markedly distended small and large bowel with findings to suggest at least minimal pneumoperitoneum. Signed by All Nguyen MD 01/20/2017 10:43 A
[2017-01-20 11:07] LABS: BASO % 0.2 % (0.0-1.0); EOS # 0.1 K/mm3 (0.0-0.50); LARGE UNSTAINED CELL # 0.1 K/mm3 (0.0-0.4); LARGE UNSTAINED CELL % 0.7 % (0.0-4.0); LYMPH # 0.5 K/mm3 (1.5-6.5); LYMPH % 4.7 % (24.0-44.0); MEAN CORPUSCULAR HEMOGLOBIN 30.1 pg (27.0-33.0); MEAN CORPUSCULAR HGB CONC 33.6 g/dl (32.0-36.5); MEAN CORPUSCULAR VOLUME 89.3 fl (80.0-96.0); MONO # 0.3 K/mm3 (0.0-0.8); MONO % 2.9 % (0.0-5.0); NEUTROPHILS # 8.1 K/mm3 (1.8-7.7); NEUTROPHILS % 90.6 % (36.0-66.0); PLATELET COUNT, AUTOMATED 205 k/mm3 (150-450); RED CELL DISTRIBUTION WIDTH 12.1 % (11.5-14.5)
[2017-01-20 11:28] LABS: ANION GAP 11 MEQ/L (8-16); BLOOD UREA NITROGEN 16 MG/DL (7-18); CARBON DIOXIDE LEVEL 23 MEQ/L (21-32); CHLORIDE LEVEL 95 MEQ/L (98-107); CREATININE FOR GFR 1.29 MG/DL (0.70-1.30); GLOMERULAR FILTRATION RATE > 60.0 (>60); GLUCOSE, FASTING 223 MG/DL (70-105); MAGNESIUM LEVEL 2.5 MG/DL (1.8-2.4); POTASSIUM SERUM 3.5 MEQ/L (3.5-5.1); SODIUM LEVEL 129 MEQ/L (136-145)
[2017-01-20 11:40] LABS: ERYTHROCYTE SEDIMENTATION RATE 63 mm/hr (0-15)
--- NOTE | 2017-01-20 11:41 | PHACANCOPD ---
PHARMACY VANCOMYCIN DOSING Pt Demographics Demographics Patient Age:26 , Weight:44.300 , Gender: male Adjusted Body Weight Date: 01/18/17, Adjusted Body Weight: Kg Events Past 24 Hours Events Past 24 Hours: YES: Other Vancomycin Vancomycin indication: MENIGITIS Vancomycin Target Ranges: 15-20 mcg/ml Vancomycin Load Y/N: Yes Load Dose Date Time Vancomycin Load Dose: 1000MG Date: 01/17/17 Time: 2000 Vancomycin Dose Date: 01/20/17. Current Vancomycin Dose: [750mg iv q12h@09] Date: 01/18/17. Current Vancomycin Dose: [750MG IV Q12@09] Intermittent Dosing?: No Labs Labs Item Value Date Time White Blood Count 14.3 K/mm3 H 01/18/17 0717 White Blood Count 7.2 K/mm3 01/19/17 1233 White Blood Count 9.0 K/mm3 01/20/17 1050 Creatinine 1.11 MG/DL 01/19/17 1233 Creatinine 1.29 MG/DL 01/20/17 1050 Creatinine 1.03 MG/DL 01/18/17 1700 Vancomycin Level Trough 13.7 UG/ML 01/20/17 0751 Vital Signs Label Value Date Time Patient Temperature 100.8 degrees F 01/19/17 1600 Temperature Source Tympanic 01/19/17 1600 Patient Temperature 99.3 degrees F 01/20/17 0000 Temperature Source Tympanic 01/20/17 0000 Patient Temperature 98.5 degrees F 01/20/17 1031 Temperature Source Tympanic 01/20/17 1031 Micro Microbiology 01/17/17 Blood Culture - Preliminary, Resulted No Growth after 48 hours. All Specime... 01/17/17 Blood Culture - Preliminary, Resulted No Growth after 48 hours. All Specime... 01/17/17 Gram Stain - Final, Complete 01/17/17 CSF Culture - Final, Complete 01/18/17 Respiratory Virus Panel (PCR) ([facility]) - Final, Complete Creatinine Clearance Date:01/18/17. Creatinine Clearance: . Assessment and Plan Maintaining Current Dose?: Yes Reason for dose change: No Dose Change Pharmacist Note Pharmacist Note 01/19: Patient's trough came back at 13.7 this morning. His fever is down from >103 degrees to between 98.6 and 100 degrees. All micro is negative at this time. We will continue him on Vancomycin 750mg IV q12h for now, and continue to monitor him and make changes as necessary. Date: 01/18/17. Pharmacist note: Patient is being treated for possible meningitis with Vancomycin and Zosyn. He had a shunt replacement on 01/16/17 and has since spike fevers of above 103 degrees. He has no history of MRSA at our facility and never been on Vancomycin here either. He was given Vancomycin 1000mg last evening at 2000. Today we started him on Vancomycin 750mg IV q12h. We will continue to monitor patient and make adjustments as necessary. JOY ZAMBRANO PHARMAC[facility] Jan 20, 2017 11:41
--- NOTE | 2017-01-20 12:29 | REP ---
CT HEAD WITHOUT CONTRAST: HISTORY: Intraventricular shut. COMPARISON: 10:35 a.m., 01/17/2017 the examination is available for review 12:10 p.m. this date. There is volume loss in the temporoparietal and left occipital lobes. There is no intraparenchymal hemorrhage, mass, or midline shift. Two shunts are present in the right lateral ventricle. The ventricles are slightly decreased in size compared to the previous examination. There is no hydrocephalus. A small amount of pneumocephalus is present. There is no extracerebral collection. The visualized sinuses are clear. IMPRESSION: 1. Bilateral temporoparietal and left occipital lobe encephalomalacia. 2. There are two shunts in the right lateral ventricle. The ventricles are slightly decreased in size compared to the previous study. There is no hydrocephalus. A small amount of pneumocephalus is present. Signed by Jorge Pearson MD 01/20/2017 12:31 P
--- NOTE | 2017-01-20 13:38 | REP ---
CT HEAD WITHOUT CONTRAST: HISTORY: Lethargy. COMPARISON: 01/17/2017. There is volume loss in the temporoparietal and left occipital lobes. There is no intraparenchymal hemorrhage, mass, or midline shift. A punctate calcification is present in the left frontal lobe. Two shunts are present in the right lateral ventricle. There is no hydrocephalus. A small amount of pneumocephalus is present that is decreased compared to the previous study. The cortical sulci of the right parietal lobe are dilated consistent with minimal volume loss. There is no extracerebral collection. The visualized sinuses are clear. IMPRESSION: 1. Bilateral temporoparietal and left occipital lobe encephalomalacia. 2. There are two shunts in the right lateral ventricle. There is no hydrocephalus. A small amount of pneumocephalus is present that is decreased compared to the previous study. Signed by Jorge Pearson MD 01/20/2017 01:41 P
--- NOTE | 2017-01-20 13:40 | REP ---
Clinical: Abdominal distension and vomiting. Comparison: 01/18/2017. Findings: Dilated fluid-filled stomach and small bowel is noted throughout the entire abdomen and pelvis with short segment of collapsed terminal ileum in the right lower quadrant and relatively normal collapsed appearance to the colon. These findings are similar to prior examination and suggest small bowel obstruction. Previously noted pneumoperitoneum is no longer evident. Small amount of residual subcutaneous emphysema in the anterior right lateral chest wall following the ventriculoperitoneal shunt appears to have improved from prior examination as well. Liver, spleen, pancreas, gallbladder, bilateral adrenal glands and kidneys are normal for noncontrast examination. Pelvis demonstrates a Barbour catheter in normal bladder. Lung bases are clear. The osseous structures demonstrate congenital deformities to the pelvis and hips consistent with cerebral palsy. Impression: Marked distension to the stomach and small bowel with apparent collapsed terminal ileum and normal-appearing colon suggests high-grade obstruction. Previously noted pneumoperitoneum has resolved. Subcutaneous emphysema in the right anterior thoracic and abdominal wall following the ventriculoperitoneal shunt is mildly improved. Signed by All Nguyen MD 01/20/2017 01:31 P
[2017-01-20] MEDS: KCL 20MEQ IN D5/NS 1000ML 1,000 ML IV SCH ×2 (16:30→23:10)
[2017-01-20] MEDS: ACETAMINOPHEN 650 MG SUPP PR PRN (17:37)
[2017-01-20] MEDS ORDERED: levETIRAcetam INJection 1,000 MG in D5W 100 ML IV SCH (21:00)
[2017-01-20] MEDS: PANTOPRAZOLE 40MG INJ (PROTONIX) (C9113) IV SCH (21:28)
[2017-01-20] MEDS: MEROPENEM INJ 1 GM in D5W MINI-BAG PLUS 100 ML IV SCH (21:28)
--- NOTE | 2017-01-20 22:05 | IPN ---
DATE: 01/20/2017 Patient is seen and examined. Received sign out from Dr. Spaulding. The patient was previously taken care of by Dr. Mauro, Dr. Spaulding, and Dr. Kwong. The patient has been having nausea and vomiting this morning. Was febrile overnight. Was slightly more lethargic. Repeat CT scan of the head, as well as abdomen and pelvis. Case also discussed with Dr. Adame. Unable to take a history from the patient, given the patient is nonverbal. As per family, patient is baseline tolerating oral without any problem. VITAL SIGNS: Temperature 101.6, pulse 97, respirations 20, blood pressure 123/69, pulse oximetry 97% on room air. LABORATORY DATA: WBC 9, hemoglobin and hematocrit 14.4/43.1, platelets 205. ESR 63. Sodium 129, potassium 3.5, chloride 95, bicarbonate 23, BUN 16, creatinine 1.29. C-reactive protein 32.1, lipase 224. Respiratory panel negative. PHYSICAL EXAMINATION: GENERAL: The patient is contracted, nonverbal, arousable to noxious stimuli, noncommunicative baseline and blind. Seems to be comfortable. HEENT: Left eye is sewn shut. Right eye pupil is reactive. Moist mucous membranes. NECK: Supple. PULMONARY: Bilaterally clear to auscultation. CARDIAC: Mild tachycardia. Regular. S1, S2. ABDOMEN: Hypoactive bowel sounds, tympanitic, distended. Minimal tenderness to palpation. No rebound or guarding. EXTREMITIES: Contracted and atrophic. ASSESSMENT AND PLAN: This is a 26-year-old male patient with underlying medical history of severe developmental delay, nonverbal, blindness, seizure disorder, chronic hydrocephalus with ventriculoperitoneal (STUNNER ANIMAL) shunt. At baseline, the patient is bed bound and requiring full assistance. The patient presented initially with lethargy with apneic respirations. Taken emergently by Dr. Mauro to the operating room with Dr. Hameed for STUNNER ANIMAL shunt replacement. Subsequently admitted to the intensive care unit (ICU) with consultation from Dr. Spaulding. Status post surgery. Following surgery, the patient was febrile, tachycardia with temperature ranging from 101 to 106 and with nausea and vomiting, not tolerating orally and abdominal distention. Respiratory aguilera, the patient has been stable, saturating at 100% to 97% on room air. X-rays appreciated. 1. STUNNER ANIMAL shunt obstruction. STUNNER ANIMAL shunt was replaced by Dr. Mauro and Dr. Hameed on 01/16/2017. Management as per neurosurgery. Repeat CT scan appreciated. 2. Fever of unknown origin, possible differential diagnosis includes infectious, postoperative infection, versus aspiration pneumonitis, versus atelectasis, versus viral illness. Also, the possibility of bowel perforation has also been explored, as well as inflammatory response due to CSF collection in the patient's neck. The case has been discussed with Dr. Spaulding. Unfortunately, infectious disease specialist, Dr. Martinez, is away on vacation, and care from infectious disease area is slightly compromised. Initially, the patient was on cefuroxime perioperatively, as per neurology. Vancomycin has been added by Dr. Spaulding. Respiratory panel negative. CSF study has been sent, however, it is a bloody tap and culture is pending. Given the persistent fever, antibiotic was escalated later to Zosyn and vancomycin and currently to meropenem and vancomycin for better CSF penetration. CT scan of the head, chest, abdomen and pelvis repeat has also been appreciated. Case was discussed with Dr. Mauro. We will continue to monitor. In the event of recurrent fevers, we will consider tagged WBC scan. C-reactive protein appreciated. We will consider tagged WBC scan, although tagged WBC scan is not very specific. 3. Abdominal distention, nausea and vomiting. Initially thought to be constipation. The patient's diet was initially advanced. Surgery, Dr. Adame, as consulted. CT scan of the abdomen was appreciated. Lactic acid is negative. As per surgery, there is no evidence of bowel perforation on the CT scan. Findings are all normal postoperative findings. Was noted to have a small bowel dilatation. Repeat CT scan shows that stool matter in the colon has not been passed and colon has collapsed and small bowel is significantly distended. Nasogastric tube has been placed to low suction. Continue antibiotic. IV fluids to replace GI losses. Discuss with family that if the patient does not tolerate oral in the next 2 to 3 days, we will consider TPN with percutaneous endoscopic gastrostomy (PEG) tube placement. Case discussed with Dr. Adame. Dr. Adame will further discuss with family about surgical options. In the meantime, we will continue to monitor. Strict input and output. 4. Congenital hydrocephalus. STUNNER ANIMAL shunt replacement done by neurosurgery. Continue to follow. 5. Developmental disability. Continue home medications. Supportive care. 6. Blindness. Supportive care. 7. Seizure disorder. The patient had a seizure during hospital admission. Given the patient's GI absorption, Topamax might be very low due to small bowel obstruction. As mentioned above, case discussed with Dr. Benitez. Appropriate conversion would be 1000 mg of Keppra twice a day. We will continue to monitor. Seizure precautions. 8. Acute kidney injury. Prerenal. Continue fluids. 9. Subcutaneous emphysema, post procedural emphysema. Case discussed with Dr. Spaulding. Likely because the patient had CSF collection in the patient's neck due to malfunctioning obstructed STUNNER ANIMAL shunt. Therefore, those fluids were removed and therefore empty space cavity was created resulting in the findings. Alternative explanation is traumatic intubation, which did not happen, as per surgeon. 10. Hyponatremia. Likely secondary to fluid imbalance. We will change fluids and continue to monitor sodium. 11. Deep vein thrombosis (DVT) prophylaxis. Venodyne and sequential compression device (SCD). We will avoid pharmacological agents given the possibility of surgery in the near future and postoperatively. DISPOSITION : We will need to work on infectious etiology if the patient's fever does not improve. We will consider additional workup, including tagged WBC scan, and we will followup with surgery regarding the management of small bowel obstruction and neurosurgery regarding the option of possible postsurgical infection versus inflammatory response to CSF. Case discussed with Dr. Adame, Dr. Mauro, Dr. Spaulding, as well as family. Radiological image viewed with Dr. Nguyen.
[2017-01-21] VITALS (7 sets, daily range): BP systolic 96–132; BP diastolic 50–60
[2017-01-21] MEDS: MEROPENEM INJ 1 GM in D5W MINI-BAG PLUS 100 ML IV SCH ×3 (04:10→21:58)
[2017-01-21 05:10] LABS: MEAN CORPUSCULAR HEMOGLOBIN 30.7 pg (27.0-33.0); MEAN CORPUSCULAR HGB CONC 34.6 g/dl (32.0-36.5); MEAN CORPUSCULAR VOLUME 88.9 fl (80.0-96.0); RED CELL DISTRIBUTION WIDTH 12.1 % (11.5-14.5); WHITE BLOOD COUNT 6.8 K/mm3 (4.0-10.0)
[2017-01-21 05:42] LABS: ANION GAP 8 MEQ/L (8-16); BLOOD UREA NITROGEN 16 MG/DL (7-18); CALCIUM LEVEL 7.5 MG/DL (8.5-10.1); CARBON DIOXIDE LEVEL 23 MEQ/L (21-32); CHLORIDE LEVEL 106 MEQ/L (98-107); GLOMERULAR FILTRATION RATE > 60.0 (>60); GLUCOSE, FASTING 166 MG/DL (70-105); POTASSIUM SERUM 3.2 MEQ/L (3.5-5.1); SODIUM LEVEL 137 MEQ/L (136-145)
[2017-01-21] MEDS: MORPHINE 2 MG/ML 1ML SYRINGE IV PRN ×2 (08:14→21:59)
[2017-01-21] MEDS: KCL 20MEQ IN D5/NS 1000ML 1,000 ML IV SCH (08:14)
[2017-01-21] MEDS: SENOKOT S TAB PO SCH ×2 (08:31→21:59)
[2017-01-21] MEDS: TOPIRAMATE (TopAMAX) 100 MG TAB PO SCH ×3 (08:31→21:58)
[2017-01-21] MEDS: SIMETHICONE 80 MG CHEW TAB PO SCH ×4 (08:32→21:59)
[2017-01-21] MEDS: BISACODYL 10 MG SUPP PR SCH ×2 (08:32→21:00)
[2017-01-21] MEDS: levETIRAcetam INJection 1,000 MG in D5W 100 ML IV SCH ×2 (08:33→21:58)
[2017-01-21] MEDS: VANCOMYCIN HCL 750 MG, VIAL MATE ADAPTER 1 EACH in D5W 250 ML IV SCH ×2 (09:43→21:58)
--- NOTE | 2017-01-21 10:23 | IPNPDOC ---
Date Seen The patient was seen on 01/21/17. Progress Note SUBJECTIVE: Patient is nonverbal. The patient's mother's bedside but tells me that he appears to be back to his baseline, she says that his belly appears less distended and he appears much more comfortable OBJECTIVE PHYSICAL EXAMINATION: VITAL SIGNS: Fever curve downtrending Please see below. GENERAL: Young man lying in bed chronic contractures disconjugate gaze tongue protrusion. Spontaneously moving upper extremities in bed HEENT: Dry mucous membrane disconjugate gaze CARDIOVASCULAR: S1-S2 not tachycardic. RESPIRATORY: Fairly clear to auscultation anteriorly. ABDOMINAL: Diminished bowel sounds abdomen is not distended however he does require O to palpation throughout EXTREMITIES: Contractures cyanosis or edema NEUROLOGICAL: At baseline nonverbal and uncooperative with exam unable to follow instructions LABORATORY DATA: Please see below. MICROBIOLOGY: Please see below. IMAGING: CT of the abdomen and pelvis from 01/20/2017 reveals distention the stomach and small bowel was collapsed terminal ileum possibly high-grade obstruction, as well as subcutaneous emphysema in the right anterior thorax and abdominal wall improved CT scan of the head reveals bilateral temporal parietal and left occipital lobe encephalomalacia as well as 2 sons in the right lateral ventricle no hydrocephalus and a small amount of pneumocephalus decreased from the previous study DVT prophylaxis ordered?: Patient is bedridden at baseline sequentials and teds ASSESSMENT AND PLAN: This is a 26-year-old man status post OUTBOARD MOTORS EXPERIMENTAL MECHANIC shunt hospital course, complicated by post procedural fever and high-grade obstruction of the bowel. Problem #1 OUTBOARD MOTORS EXPERIMENTAL MECHANIC shunt obstruction: The patient was taken to the OR urgently onto [address] Nar[address]z. Their help is greatly appreciated, this does not appear to be any further obstruction or problem with the shunt at this time. Related to congenital hydrocephalus Problem #2 postprocedural fever: Post procedurally the patient is on cefuroxime and however this was titrated up to vancomycin and Zosyn given that the patient had a high fever at the present time the patient is on vancomycin and meropenem for better CSF penetration. The present time social infection is not immediately clear his cultures are all negative at this time. We'll continue with current antibiotics to cover potential CSF/shunt infection, aspiration pneumonia, abdominal pathology. The fever curve appears to be trending down. This may be an abdominal source given that he has appears to be high-grade obstruction of the small bowel and physical exam concerning for small bowel obstruction. If no source is found would likely discontinue antibiotics after 7 days Problem #3 abdominal distention/pain: Dr. Adame is following the patient is up is greatly appreciated he has an NG tube which is draining significant amount of secretions his abdominal distention is reportedly improved he still requires pain in the area Dr. Adame is ordered a flat plate of his belly today. We'll defer management of the abdomen to general surgery. I did discuss at length with the patient's mother bedside and answered all her questions her satisfaction this morning. He's been started on Dulcolax and simethicone Problem #4 development of this ability: The patient lives in the [facility] he is a seizure disorder he did have one seizure during his stay he stayed on Topamax as well as IV Keppra K monitor for seizure precautions Problem #5 acute kidney injury: Appears to be resolving continue with IV fluids will also supplement potassium for hypokalemia Problem #6 days emphysema: This is another potential source of infection. Related to CSF collection the patient's neck secondary to obstructing OUTBOARD MOTORS EXPERIMENTAL MECHANIC shunt at the time of admission doesn't appear to be improving on most recent CT scan we'll continue to monitor. Problem #7 hyponatremia: Resolved Problem #8 gastroc reflux disease: The patient is on Protonix IV DISPOSITION: Appears to be improving at this time however his prognosis remains guarded we'll continue monitor closely in the intensive care unit. VS, I&O, 24H, [place] Vital Signs/I&O Vital Signs Date Time Temp Pulse Resp B/P Pulse Ox O2 Delivery O2 Flow Rate FiO2 01/21/17 08:34 83 18 98 Room Air 01/21/17 08:14 99.4 132/57 01/17/17 04:00 2.0 01/17/17 01:55 28 I&O- Last 24 Hours up to 6 AM 01/21/17 06:00 Intake Total 4150 ml Output Total 2890 ml Balance 1260 ml Laboratory Data 24H LABS Laboratory Tests 2 01/20/17 10:50: Anion Gap 11, White Blood Count 9.0, Red Blood Count 4.83, Hemoglobin 14.5, Hematocrit 43.1, Mean Corpuscular Volume 89.3, Mean Corpuscular Hemoglobin 30.1 , Mean Corpuscular Hemoglobin Concent 33.6, Red Cell Distribution Width 12.1, Platelet Count 205, Neutrophils (%) (Auto) 90.6H, Lymphocytes (%) (Auto) 4.7L, Monocytes (%) (Auto) 2.9, Eosinophils (%) (Auto) 1.0, Basophils (%) (Auto) 0.2, Neutrophils # (Auto) 8.1H, Lymphocytes # (Auto) 0.5L, Monocytes # (Auto) 0.3, Eosinophils # (Auto) 0.1, Basophils # (Auto) 0.0, C-Reactive Protein, Quantitative 32.10H, Blood Urea Nitrogen 16, Creatinine 1.29, Sodium Level 129#L , Potassium Level 3.5, Chloride Level 95L, Carbon Dioxide Level 23, Calcium Level 9.0#, Erythrocyte Sedimentation Rate 63H, Glomerular Filtration Rate > 60.0, Large Unclassified Cells # 0.1, Large Unclassified Cells % 0.7, Lipase 224 , Magnesium Level 2.5H 01/21/17 04:31: Anion Gap 8, C-Reactive Protein, Quantitative 21.20H, Blood Urea Nitrogen 16, Creatinine 1.00, Sodium Level 137#, Potassium Level 3.2L, Chloride Level 106, Carbon Dioxide Level 23, Calcium Level 7.5#L, Glomerular Filtration Rate > 60.0 , Magnesium Level 2.0 CBC/BMP Laboratory Tests 01/20/17 10:50 Calcium Level 9.0 #, Red Blood Count 4.83, Mean Corpuscular Volume 89.3, Mean Corpuscular Hemoglobin 30.1, Mean Corpuscular Hemoglobin Concent 33.6, Red Cell Distribution Width 12.1, Neutrophils (%) (Auto) 90.6 H, Lymphocytes (%) (Auto) 4.7 L, Monocytes (%) (Auto) 2.9, Eosinophils (%) (Auto) 1.0, Basophils (%) (Auto ) 0.2, Neutrophils # (Auto) 8.1 H, Lymphocytes # (Auto) 0.5 L, Monocytes # (Auto ) 0.3, Eosinophils # (Auto) 0.1, Basophils # (Auto) 0.0 01/21/17 04:31 Calcium Level 7.5 #L, Red Blood Count 4.05 L, Mean Corpuscular Volume 88.9, Mean Corpuscular Hemoglobin 30.7, Mean Corpuscular Hemoglobin Concent 34.6, Red Cell Distribution Width 12.1 Microbiology Microbiology 01/17/17 Blood Culture - Preliminary, Resulted No Growth after 72 hours. All specime... 01/17/17 Blood Culture - Preliminary, Resulted No Growth after 72 hours. All specime... 01/17/17 Gram Stain - Final, Complete 01/17/17 CSF Culture - Final, Complete 01/18/17 Respiratory Virus Panel (PCR) ([facility]) - Final, Complete SALOMÓN TANNER MD Jan 21, 2017 10:23
[2017-01-21] MEDS: KCL 40MEQ IN D5/NS 1000ML 1,000 ML IV SCH ×2 (10:37→17:29)
--- NOTE | 2017-01-21 11:24 | REP ---
Clinical: Follow up small bowel obstruction. Technique: Portable supine view of the abdomen and pelvis. Comparison: 01/20/2017. Findings: Nasogastric tube left upper quadrant. SOLUTION MAKE UP OPERATOR shunt again extends into the abdomen and pelvis. The bowel gas pattern again demonstrates diffuse dilated air filled bowel which may be minimally improved from prior examination. Skeletal structures stable. Impression: Diffusely dilated bowel may be minimally improved compared to prior examination. Signed by All Nguyen MD 01/21/2017 11:15 A
[2017-01-21] MEDS: ACETAMINOPHEN TAB 650MG DOSE (2X325MG) PO PRN (16:23)
[2017-01-21] MEDS: PANTOPRAZOLE 40MG INJ (PROTONIX) (C9113) IV SCH (21:58)
[2017-01-22] VITALS (7 sets, daily range): BP systolic 94–137; BP diastolic 51–81
[2017-01-22] MEDS: KCL 40MEQ IN D5/NS 1000ML 1,000 ML IV SCH ×4 (00:16→22:00)
[2017-01-22] MEDS: ACETAMINOPHEN 650 MG SUPP PR PRN ×2 (01:13→11:55)
[2017-01-22] MEDS: MEROPENEM INJ 1 GM in D5W MINI-BAG PLUS 100 ML IV SCH ×3 (04:41→21:59)
[2017-01-22 05:10] LABS: MEAN CORPUSCULAR HEMOGLOBIN 30.7 pg (27.0-33.0); MEAN CORPUSCULAR HGB CONC 33.6 g/dl (32.0-36.5); MEAN CORPUSCULAR VOLUME 91.6 fl (80.0-96.0); RED CELL DISTRIBUTION WIDTH 12.4 % (11.5-14.5); WHITE BLOOD COUNT 7.9 K/mm3 (4.0-10.0)
[2017-01-22 05:32] LABS: ANION GAP 9 MEQ/L (8-16); BLOOD UREA NITROGEN 8 MG/DL (7-18); CALCIUM LEVEL 7.8 MG/DL (8.5-10.1); CARBON DIOXIDE LEVEL 16 MEQ/L (21-32); CHLORIDE LEVEL 110 MEQ/L (98-107); GLOMERULAR FILTRATION RATE > 60.0 (>60); GLUCOSE, FASTING 114 MG/DL (70-105); MAGNESIUM LEVEL 1.9 MG/DL (1.8-2.4); POTASSIUM SERUM 4.1 MEQ/L (3.5-5.1); SODIUM LEVEL 135 MEQ/L (136-145)
[2017-01-22] MEDS ORDERED: E-Z PAQUE 60% w/v SUSP 355ML BOTTLE As Ordered ONE (08:22)
[2017-01-22] MEDS ORDERED: ENTERO VU 24% w/v SUSP BTL 600ML As Ordered ONE ×2 (08:28→09:27)
[2017-01-22] MEDS: VANCOMYCIN HCL 750 MG, VIAL MATE ADAPTER 1 EACH in D5W 250 ML IV SCH ×2 (09:00→16:17)
[2017-01-22] MEDS: TOPIRAMATE (TopAMAX) 100 MG TAB PO SCH ×3 (09:00→22:00)
[2017-01-22] MEDS: levETIRAcetam INJection 1,000 MG in D5W 100 ML IV SCH ×2 (09:00→22:00)
[2017-01-22] MEDS: SIMETHICONE 80 MG CHEW TAB PO SCH ×4 (09:00→22:00)
[2017-01-22] MEDS: SENOKOT S TAB PO SCH ×2 (09:00→22:00)
[2017-01-22] MEDS: BISACODYL 10 MG SUPP PR SCH ×2 (09:00→21:00)
--- NOTE | 2017-01-22 09:53 | IPNPDOC ---
Date Seen The patient was seen on 01/22/17. Progress Note SUBJECTIVE: Patient is nonverbal. The patient's mother's bedside and tells me that he appears to be back to his baseline she is optimistic that he was even laughing earlier today. OBJECTIVE PHYSICAL EXAMINATION: VITAL SIGNS: Fever curve downtrending Please see below. GENERAL: Young man lying in bed chronic contractures disconjugate gaze tongue protrusion. Spontaneously moving upper extremities in bed HEENT: Dry mucous membrane disconjugate gaze CARDIOVASCULAR: S1-S2 not tachycardic. RESPIRATORY: Fairly clear to auscultation anteriorly. ABDOMINAL: Diminished bowel sounds abdomen is not distended however he does recoil to palpation throughout EXTREMITIES: Contractures, no cyanosis or edema NEUROLOGICAL: At baseline nonverbal and uncooperative with exam unable to follow instructions LABORATORY DATA: Decrease serum bicarbonate elevated serum chloride Please see below. MICROBIOLOGY: Please see below. IMAGING: Abdominal flat plate reveals diffusely dilated bowel may be minimally improved compared to prior exam CT of the abdomen and pelvis from 01/20/2017 reveals distention the stomach and small bowel was collapsed terminal ileum possibly high-grade obstruction, as well as subcutaneous emphysema in the right anterior thorax and abdominal wall improved CT scan of the head reveals bilateral temporal parietal and left occipital lobe encephalomalacia as well as 2 sons in the right lateral ventricle no hydrocephalus and a small amount of pneumocephalus decreased from the previous study DVT prophylaxis ordered?: Patient is bedridden at baseline sequentials and teds ASSESSMENT AND PLAN: This is a 26-year-old man status post GREENS TIER shunt hospital course, complicated by post procedural fever and high-grade obstruction of the bowel. Problem #1 GREENS TIER shunt obstruction: The patient was taken to the OR urgently onto by Dr. Narvaez. Their help is greatly appreciated, this does not appear to be any further obstruction or problem with the shunt at this time. Related to congenital hydrocephalus Problem #2 postprocedural fever: Post procedurally the patient is on cefuroxime and however this coverage was up to vancomycin and Zosyn given that the patient had a high fever at the present time the patient is on vancomycin and meropenem for better CSF penetration day 3/7 of this coverage. The present source of infection is not immediately clear his cultures are all negative at this time. We'll continue with current antibiotics to cover potential CSF/shunt infection, aspiration pneumonia, abdominal pathology. The fever curve appears to be trending down. This may be an abdominal source given that he has appears to be high-grade obstruction of the small bowel and physical exam concerning for small bowel obstruction. If no source is found would likely discontinue antibiotics after 7 days. Nursing staff is concerned the patient has poor IV access to that he'll need IV and tobacco several days I will place a PICC line today Problem #3 abdominal distention/pain: Dr. Adame is following the patient is up is greatly appreciated he has an NG tube which is draining significant amount of secretions his abdominal distention is improved. Dr. Adame is ordered for a small bowel follow-through this morning. Will defer management of the abdomen to general surgery. I did discuss at length with the patient's mother bedside and answered all her questions her satisfaction this morning. He' s been started on Dulcolax and simethicone Problem #4 developmental disability: The patient lives in the [facility] he is a seizure disorder he did have one seizure during his stay he stayed on Topamax as well as IV Keppra K monitor for seizure precautions Problem #5 acute kidney injury: Appears to be resolving continue with IV fluids will also supplement potassium for hypokalemia Problem #6 subcutaneous emphysema: This is another potential source of infection. Related to CSF collection the patient's neck secondary to obstructing GREENS TIER shunt at the time of admission does appear to be improving on most recent CT scan we'll continue to monitor. Problem #7 hyponatremia: Resolved Problem #8 gastro esophageal reflux disease: The patient is on Protonix IV DISPOSITION: Appears to be improving at this time from my perspective he is medically stable for transfer transfer to the medical surgical floor will defer to Dr. Mauro he was primary attending on the case. VS, I&O, 24H, [place] Vital Signs/I&O Vital Signs Date Time Temp Pulse Resp B/P Pulse Ox O2 Delivery O2 Flow Rate FiO2 01/22/17 08:00 98.8 83 18 101/51 100 Room Air 01/17/17 04:00 2.0 01/17/17 01:55 28 I&O- Last 24 Hours up to 6 AM 01/22/17 06:00 Intake Total 4730 ml Output Total 3805 ml Balance 925 ml Laboratory Data 24H LABS Laboratory Tests 2 01/22/17 05:00: Anion Gap 9, C-Reactive Protein, Quantitative 9.81H, Blood Urea Nitrogen 8, Creatinine 0.90, Sodium Level 135L, Potassium Level 4.1#, Chloride Level 110H, Carbon Dioxide Level 16L, Calcium Level 7.8L, Glomerular Filtration Rate > 60.0 , Magnesium Level 1.9 CBC/BMP Laboratory Tests 01/22/17 05:00 Calcium Level 7.8 L, Red Blood Count 4.00 L, Mean Corpuscular Volume 91.6, Mean Corpuscular Hemoglobin 30.7, Mean Corpuscular Hemoglobin Concent 33.6, Red Cell Distribution Width 12.4 Microbiology Microbiology 01/17/17 Blood Culture - Preliminary, Resulted No Growth after 72 hours. All specime... 01/17/17 Blood Culture - Preliminary, Resulted No Growth after 72 hours. All specime... 01/17/17 Gram Stain - Final, Complete 01/17/17 CSF Culture - Final, Complete 01/18/17 Respiratory Virus Panel (PCR) ([facility]) - Final, Complete SALOMÓN TANNER MD Jan 22, 2017 09:53
[2017-01-22 11:06] LABS: ANION GAP 10 MEQ/L (8-16); BLOOD UREA NITROGEN 7 MG/DL (7-18); CALCIUM LEVEL 8.4 MG/DL (8.5-10.1); CARBON DIOXIDE LEVEL 21 MEQ/L (21-32); CHLORIDE LEVEL 104 MEQ/L (98-107); CREATININE FOR GFR 0.82 MG/DL (0.70-1.30); GLOMERULAR FILTRATION RATE > 60.0 (>60); GLUCOSE, FASTING 88 MG/DL (70-105); POTASSIUM SERUM 3.8 MEQ/L (3.5-5.1); SODIUM LEVEL 135 MEQ/L (136-145)
--- NOTE | 2017-01-22 16:50 | REP ---
SMALL BOWEL FOLLOW-THROUGH WITH KUB: 01/22/2017. Comparison KUB 01/21/2017, 01/20/2017, noncontrast CT abdomen and pelvis 01/20/2017. Clinical history: Follow-up small bowel obstruction versus ileus. NG tube in place. The sustainability coordinator film shows the NG tube into the left upper quadrant lateral aspect of the fundus. There is a coiled CHAIR MENDER shunt tube down into the pelvis and curving upward into the left mid abdomen overlying the iliac crest. The gas pattern shows distended bowel loops but less so than on yesterday's study, much less than on the 01/20/2017 exam. Some of the loops are the same size but overall there is less gas and fewer distended loops. Spina bifida occulta with incomplete fusion of the spinous process of L5 noted. 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 No acute bony finding. Findings. The patient received two bottles of EnteroVue via his NG tube. Overhead images at 20 minutes and sequentially to 5 hours and 20 minutes were obtained. Transit time to the cecum is less than 5 hours and 20 minutes and greater than 3 hours and 20 minutes. Small bowel loops proximally are somewhat dilated but have no thickened folds. Mid to distal small bowel loops are also mildly dilated, but less so than yesterday's and previous day's study. Contrast into the cecum, which is adequately distended along with the right colon. There are no strictured loops, angulated loops, loop separation or extrinsic mass effect evident. Terminal ileum and ileocecal valve are poorly depicted despite multiple projections and ballottement. The patient had no tenderness during the entire examination with firm balloon pressure over the abdomen. Impression: 1. There is ileus with some dilatation of small bowel loops throughout abdomen and pelvis but improved progressively over the past 2 days and with contrast into the cecum but with good distension of the cecum and right colon on the five hour 20-minute film. It had not reached the cecum on the three hour 20-minute film so transit time was somewhere between those. Findings suggest ileus or resolving partial small-bowel obstruction. No other significant or acute finding. Signed by Mj Dale MD 01/22/2017 08:23 P
[2017-01-22] MEDS: SODIUM CHLORIDE 0.9% INJ 10 ML SYR IV SCH (17:11)
[2017-01-22] MEDS ORDERED: MAG SULF 1GM/100ML (MAG RUN) 1 GM in APPROPRIATE DILUENT 1 EA IV ONE (18:30)
[2017-01-22] MEDS ORDERED: KCL 20MEQ IN 100ML SWI (KRUN) 20 MEQ in APPROPRIATE DILUENT 1 EA IV ONE ×2 (20:00)
--- NOTE | 2017-01-22 20:20 | REP ---
Procedure: PICC line insertion with Xiao-Mac The procedure was performed under the direct supervision of Dr. Dale. The risks and benefits of the procedure were explained and informed consent was obtained by the health care proxy. The right basilic vein was localized using ultrasound guidance. The skin was prepped and draped in a sterile fashion. 2% lidocaine was used as a local anesthetic. Using ultrasound guidance the basilic vein was cannulated and a 0.018 guidewire was inserted and advanced to the SVC using fluoroscopic guidance. The needle was removed and a 5.5 Vincentian dilator and peel-away sheath was inserted over the guide wire. A 5.5 Vincentian dual lumen catheter was cut to length of 40 cm. The dilator was removed and the catheter was inserted over the guide wire with the tip ending in the SVC. The peel-away sheath was removed and the catheter was flushed with heparinized saline as per Hospital protocol. The catheter was affixed to the skin and a sterile dressing was applied. The the patient tolerated the procedure well and there were no immediate complications. 0.5 minutes of fluoro time was utilized for this procedure. Reviewed by ULICES Motley 01/22/2017 04:31 PSigned by Mj Dale MD 01/22/2017 08:12 P
[2017-01-22] MEDS: PANTOPRAZOLE 40MG INJ (PROTONIX) (C9113) IV SCH (22:00)
[2017-01-23 00:50] VITALS: BP 118/57
[2017-01-23] MEDS: ACETAMINOPHEN 650 MG SUPP PR PRN (01:02)
[2017-01-23] MEDS: VANCOMYCIN HCL 750 MG, VIAL MATE ADAPTER 1 EACH in D5W 250 ML IV SCH ×2 (03:42→15:21)
[2017-01-23 04:00] VITALS: BP 105/58
[2017-01-23] MEDS: MEROPENEM INJ 1 GM in D5W MINI-BAG PLUS 100 ML IV SCH ×3 (04:51→22:00)
[2017-01-23] MEDS: SODIUM CHLORIDE 0.9% INJ 10 ML SYR IV SCH ×2 (05:30→17:14)
[2017-01-23] MEDS: KCL 40MEQ IN D5/NS 1000ML 1,000 ML IV SCH ×2 (05:30→13:56)
[2017-01-23 05:44] LABS: MEAN CORPUSCULAR HEMOGLOBIN 30.3 pg (27.0-33.0); MEAN CORPUSCULAR HGB CONC 33.7 g/dl (32.0-36.5); MEAN CORPUSCULAR VOLUME 90.1 fl (80.0-96.0); RED CELL DISTRIBUTION WIDTH 13.4 % (11.5-14.5); WHITE BLOOD COUNT 7.9 K/mm3 (4.0-10.0)
[2017-01-23 06:06] LABS: ANION GAP 10 MEQ/L (8-16); BLOOD UREA NITROGEN 10 MG/DL (7-18); CALCIUM LEVEL 7.3 MG/DL (8.5-10.1); CARBON DIOXIDE LEVEL 22 MEQ/L (21-32); CHLORIDE LEVEL 104 MEQ/L (98-107); CREATININE FOR GFR 0.87 MG/DL (0.70-1.30); GLOMERULAR FILTRATION RATE > 60.0 (>60); GLUCOSE, FASTING 127 MG/DL (70-105); MAGNESIUM LEVEL 2.3 MG/DL (1.8-2.4); POTASSIUM SERUM 3.8 MEQ/L (3.5-5.1); SODIUM LEVEL 136 MEQ/L (136-145)
[2017-01-23 08:00] VITALS: BP 143/73
[2017-01-23] MEDS: SIMETHICONE 80 MG CHEW TAB PO SCH ×4 (08:59→22:00)
[2017-01-23] MEDS: TOPIRAMATE (TopAMAX) 100 MG TAB PO SCH ×3 (08:59→22:01)
[2017-01-23] MEDS: SENOKOT S TAB PO SCH ×2 (08:59→21:00)
[2017-01-23] MEDS: levETIRAcetam INJection 1,000 MG in D5W 100 ML IV SCH ×2 (08:59→22:00)
[2017-01-23] MEDS: BISACODYL 10 MG SUPP PR SCH ×2 (09:00→21:00)
[2017-01-23] MEDS: SODIUM CHLORIDE NASAL 0.65% SPRAY BTL (OCEAN) SCH ×3 (09:00→22:02)
[2017-01-23] MEDS ORDERED: DOCUSATE SODIUM 100 MG CAP PO SCH (09:00)
--- NOTE | 2017-01-23 10:35 | IPNPDOC ---
Date Seen The patient was seen on 01/23/17. Progress Note SUBJECTIVE: Patient is nonverbal. The patient's mother's bedside and tells me that he appears to be back to his baseline she is optimistic that he was even laughing earlier today. OBJECTIVE PHYSICAL EXAMINATION: VITAL SIGNS: Please see below. GENERAL: Young man lying in bed chronic contractures disconjugate gaze tongue protrusion. Spontaneously moving in bed HEENT: Dry mucous membrane disconjugate gaze CARDIOVASCULAR: S1-S2 not tachycardic. RESPIRATORY: Fairly clear to auscultation anteriorly. ABDOMINAL: Diminished bowel sounds abdomen is not distended EXTREMITIES: Contractures, no cyanosis or edema NEUROLOGICAL: At baseline nonverbal and uncooperative with exam unable to follow instructions LABORATORY DATA: Please see below. MICROBIOLOGY: Please see below. IMAGING: Abdominal flat plate reveals diffusely dilated bowel may be minimally improved compared to prior exam CT of the abdomen and pelvis from 01/20/2017 reveals distention the stomach and small bowel was collapsed terminal ileum possibly high-grade obstruction, as well as subcutaneous emphysema in the right anterior thorax and abdominal wall improved CT scan of the head reveals bilateral temporal parietal and left occipital lobe encephalomalacia as well as 2 sons in the right lateral ventricle no hydrocephalus and a small amount of pneumocephalus decreased from the previous study DVT prophylaxis ordered?: Patient is bedridden at baseline sequentials and teds ASSESSMENT AND PLAN: This is a 26-year-old man status post STARTING SHEET TANK OPERATOR shunt hospital course, complicated by post procedural fever and high-grade obstruction of the bowel. Problem #1 STARTING SHEET TANK OPERATOR shunt obstruction: The patient was taken to the OR urgently onto by Dr. Narvaez. Their help is greatly appreciated, this does not appear to be any further obstructionwith the shunt at this time. Related to congenital hydrocephalus Problem #2 postprocedural fever: Post procedurally the patient is on cefuroxime and however this coverage was broadened to vancomycin and Zosyn given that the patient had a high fever and there was concern for possible FRENCH EDGE OPERATOR infection it was further broadened and the patient has now been on on vancomycin and meropenem for better CSF penetration day 4 of this coverage. The present source of infection is not immediately clear his cultures are all negative at this time. His abdomen is much improved, fever curve had been downtrending however yesterday began to rise again. Inflammatory markers appear to have plateaued, at this time we will check an echocardiogram we'll recheck blood cultures UA urine culture we will check a CTA of the chest and abdomen pelvis to rule out any other occult sources of infection. We will reevaluate in 48 hours should the patient continued to spike fevers we may need to consider his shunt as a potential source of infection for now we will rule out other potential sources and continue with appropriate antibiotics. Problem #3 abdominal distention/pain: Dr. Adame is following the patient his help is greatly appreciated NGT has been removed, he is tolerating CLD, we will attempt to restart some of his home medications. We will restart his home bowel regimen Problem #4 developmental disability: The patient lives in the [facility] he is a seizure disorder he did have one seizure during his stay he stayed on Topamax as well as IV Keppra K monitor for seizures. If the patient is able to tolerate PO meds could consider d/c'd IV keppra in the near future or upon discharge. Problem #5 acute kidney injury: Appears to be resolving continue with IV fluids , hypomagnesemia and hypokalemia repleted yesterday evening Problem #6 subcutaneous emphysema: This is another potential source of infection. Related to CSF collection the patient's neck secondary to obstructing STARTING SHEET TANK OPERATOR shunt at the time of admission does appear to be improving on most recent CT scan we'll continue to monitor. Problem #7 hyponatremia: Resolved Problem #8 gastro esophageal reflux disease: The patient is on Protonix IV DISPOSITION: Appears to be improving, however will continue to cover with Abx and investigate source of fevers. VS, I&O, 24H, [facility] Vital Signs/I&O Vital Signs Date Time Temp Pulse Resp B/P Pulse Ox O2 Delivery O2 Flow Rate FiO2 01/23/17 08:00 98.0 88 20 143/73 100 Room Air 01/17/17 04:00 2.0 01/17/17 01:55 28 I&O- Last 24 Hours up to 6 AM 01/23/17 05:59 Intake Total 2985 ml Output Total 2470 ml Balance 515 ml Laboratory Data 24H LABS Laboratory Tests 2 01/22/17 10:35: Anion Gap 10, Blood Urea Nitrogen 7, Creatinine 0.82, Sodium Level 135L, Potassium Level 3.8, Chloride Level 104, Carbon Dioxide Level 21, Calcium Level 8.4L, Glomerular Filtration Rate > 60.0 01/22/17 16:20: Erythrocyte Sedimentation Rate 78H, Urine Amorphous Sediment SMALLH, Urine Appearance HAZY, Urine Color YELLOW, Urine pH 6.0, Urine Specific Benson 1.014 , Urine Protein 1+H, Urine Glucose (UA) 1+H, Urine Ketones 1+H, Urine Urobilinogen 0.2, Urine Bilirubin NEGATIVE, Urine Leukocyte Esterase TRACEH, Urine Bacteria (Auto) NEGATIVE, Urine Blood 3+H, Urine Calcium Carbonate Cryst( Auto) , Urine Calcium Oxalate Cryst (Auto) , Urine Calcium Phosphate Freda (Auto ) , Urine Cellular Casts , Urine Cystine Crystals , Urine Granular Casts (Auto) , Urine Hyaline Casts (Auto) 0, Urine Leucine Crystals , Urine Mucus (Auto) SMALL, Urine Nitrite NEGATIVE, Urine Oval Fat Bodies (Auto) , Urine RBC (Auto) TNTCH, Urine Renal Epithelial Cells , Urine Sperm (Auto) , Urine Squamous Epithelial Cells 0, Urine Transitional Epithelial Cells , Urine Trichomonas ( Auto) , Urine Triple Phosphate Cryst (Auto) , Urine Tyrosine Crystals , Urine Uric Acid Crystals (Auto) , Urine WBC (Auto) 10H, Urine Waxy Casts (Auto) , Urine Yeast-Like Cells (Auto) 01/23/17 05:22: Anion Gap 10, Blood Urea Nitrogen 10, Creatinine 0.87, Sodium Level 136, Potassium Level 3.8, Chloride Level 104, Carbon Dioxide Level 22, Calcium Level 7.3L, Glomerular Filtration Rate > 60.0, Erythrocyte Sedimentation Rate 79H, C- Reactive Protein, Quantitative 9.82H, Magnesium Level 2.3 CBC/BMP Laboratory Tests 01/22/17 10:35 Calcium Level 8.4 L 01/23/17 05:22 Calcium Level 7.3 L, Red Blood Count 3.86 L, Mean Corpuscular Volume 90.1, Mean Corpuscular Hemoglobin 30.3, Mean Corpuscular Hemoglobin Concent 33.7, Red Cell Distribution Width 13.4 Microbiology Microbiology 01/22/17 Blood Culture, Received Pending 01/22/17 Blood Culture, Received Pending 01/17/17 Blood Culture - Final, Complete NO GROWTH AFTER 5 DAYS 01/17/17 Blood Culture - Final, Complete NO GROWTH AFTER 5 DAYS 01/17/17 Gram Stain - Final, Complete 01/17/17 CSF Culture - Final, Complete 01/18/17 Respiratory Virus Panel (PCR) ([facility]) - Final, Complete 01/22/17 Urine Culture, Received Pending SALOMÓN TANNER MD Jan 23, 2017 10:35
[2017-01-23] MEDS ORDERED: FLEET ENEMA PR PRN (10:45)
[2017-01-23] MEDS ORDERED: MOM 30ML SUSPENSION UDC PO PRN (10:45)
[2017-01-23] MEDS ORDERED: SODIUM CHLORIDE NASAL 0.65% SPRAY BTL (OCEAN) PRN (10:45)
[2017-01-23] MEDS ORDERED: CETIRIZINE (ZyrTEC) 10 MG TAB PO PRN (10:45)
[2017-01-23] MEDS ORDERED: KCL 20MEQ IN 100ML SWI (KRUN) 20 MEQ in APPROPRIATE DILUENT 1 EA IV ONE ×2 (11:00)
[2017-01-23 11:45] VITALS: BP 125/78
[2017-01-23] MEDS: DOCUSATE SOD LIQ 100MG/10ML UDC PO SCH ×2 (11:52→21:00)
[2017-01-23] MEDS: CLOTRIMAZOLE 1% TOPICAL CREAM 30GM EXT SCH ×2 (11:58→22:02)
[2017-01-23] MEDS: MULTIVITAMINS CHILDREN'S CHEWABLE TABLET PO SCH (11:58)
[2017-01-23] MEDS: SODIUM CHLORIDE 0.9% INJ 10 ML SYR IV PRN (12:50)
[2017-01-23 16:00] VITALS: BP 120/63
[2017-01-23] MEDS ORDERED: ISOVUE-370 76% 100ML VIAL (Q9967) As Ordered ONE (17:17)
--- NOTE | 2017-01-23 17:24 | REP ---
Clinical: Acute chest pain with fever. Technique: Axial contrast enhanced images from the thoracic inlet to the upper abdomen using 100 ml Isovue 370 intravenous contrast material with coronal and sagittal re-formations. Findings: Satisfactory enhancement of the pulmonary vasculature is achieved and no filling defects are identified to suggest pulmonary embolus. Thoracic aorta is normal caliber without aneurysm or dissection. Heart and pericardium are normal. Bilateral lung toure are well aerated and clear without acute pulmonary parenchymal consolidation or atelectasis. No nodule or mass lesion. No pleural effusion/reaction. No pneumothorax. No adenopathy. Subcutaneous emphysema involving the visualized thoracic inlet and anterior chest wall in relation to the ventriculoperitoneal shunt is improved when compared to multiple prior examinations. Impression: No evidence for pulmonary embolus. No acute pleuroparenchymal or mediastinal process. Decreased subcutaneous emphysema in relation to the ventriculoperitoneal shunt. Signed by All Nguyen MD 01/23/2017 05:15 P
--- NOTE | 2017-01-23 17:29 | REP ---
Clinical: Abdominal pain and fever with history of bowel obstruction and pneumoperitoneum. Technique: Axial contrast enhanced images from the lung bases to the pubic symphysis using 100 ml Isovue 370 intravenous contrast material with coronal and sagittal re-formations. Comparison: 01/20/2017. Findings: Evaluation is somewhat limited due to high density barium within multiple loops of small and large bowel which extends into the rectum and thereby likely excludes bowel obstruction. Dilated, fluid-filled loops of bowel are moderately improved when compared to prior examination. No definite residual pneumoperitoneum is appreciated. No obvious drainable collection/abscess or ascites is identified. Liver, spleen, pancreas, gallbladder, bilateral adrenal glands and kidneys are normal. A ventriculoperitoneal shunt extends into the right randall pelvis. Vasculature appears normal. Musculoskeletal structures demonstrate congenital malformations consistent with history of cerebral palsy. Impression: 1. Improved appearance to the small and large bowel with high-density contrast extending to the rectum thereby essentially excluding complete bowel obstruction. Findings likely represent continued but improved ileus. 2. No evidence for drainable collection/abscess or ascites. 3. No obvious acute intra-abdominal or pelvic pathology appreciated. Signed by All Nguyen MD 01/23/2017 05:21 P
[2017-01-23 20:40] VITALS: BP 114/62
[2017-01-23] MEDS: MONTELUKAST 10 MG TAB PO SCH (22:00)
[2017-01-23] MEDS: BENZAMYCIN TOP SCH (22:01)
[2017-01-23] MEDS: PANTOPRAZOLE 40MG INJ (PROTONIX) (C9113) IV SCH (22:01)
[2017-01-24 00:40] VITALS: BP 115/64
[2017-01-24] MEDS: VANCOMYCIN HCL 750 MG, VIAL MATE ADAPTER 1 EACH in D5W 250 ML IV SCH ×2 (03:23→16:06)
[2017-01-24 03:27] VITALS: BP 113/66
[2017-01-24] MEDS: MEROPENEM INJ 1 GM in D5W MINI-BAG PLUS 100 ML IV SCH ×3 (04:28→21:51)
[2017-01-24] MEDS: SODIUM CHLORIDE 0.9% INJ 10 ML SYR IV SCH ×2 (04:28→17:54)
[2017-01-24 05:23] LABS: MEAN CORPUSCULAR HGB CONC 34.1 g/dl (32.0-36.5); MEAN CORPUSCULAR VOLUME 87.9 fl (80.0-96.0); RED CELL DISTRIBUTION WIDTH 12.2 % (11.5-14.5); WHITE BLOOD COUNT 12.5 K/mm3 (4.0-10.0)
[2017-01-24 05:59] LABS: ANION GAP 8 MEQ/L (8-16); BLOOD UREA NITROGEN 10 MG/DL (7-18); CALCIUM LEVEL 7.8 MG/DL (8.5-10.1); CARBON DIOXIDE LEVEL 25 MEQ/L (21-32); CHLORIDE LEVEL 99 MEQ/L (98-107); CREATININE FOR GFR 0.91 MG/DL (0.70-1.30); GLOMERULAR FILTRATION RATE > 60.0 (>60); GLUCOSE, FASTING 142 MG/DL (70-105); MAGNESIUM LEVEL 2.1 MG/DL (1.8-2.4); POTASSIUM SERUM 3.7 MEQ/L (3.5-5.1); SODIUM LEVEL 132 MEQ/L (136-145)
--- NOTE | 2017-01-24 07:08 | EEG ---
DATE OF PROCEDURE: 01/22/2017 REFERRING PHYSICIAN: Dr. Jonatan Mauro. DIAGNOSIS: Seizure, KETTLE OPERATOR HEAD shunt replacement. EEG NUMBER [id number] HISTORY: Patient is a 26-year-old man with history of developmental delay and hydrocephalus for which the patient had a KETTLE OPERATOR HEAD shunt. He fell and needed replacement of KETTLE OPERATOR HEAD shunt. This EEG was done to rule out epileptic potential. He is currently on Topamax, Keppra, meropenem, etc. TECHNICAL DESCRIPTION: This digital EEG was recorded by 21 scalp, ear and two EKG electrodes and was reviewed in bipolar and referential montages following reformatting in 10-20 international electrode placement system. INTERPRETATION: The patient was noted to be in awake state mostly during this EEG. Background rhythm was affected by muscle artifact and motion artifact. In readable portions of this EEG, resting awake background rhythm consisted of 5 - 6 Hertz theta activity measuring 15 - 40 microvolts in amplitude. No sleep was achieved. Hyperventilation and photic stimulation remained unremarkable. EKG revealed normal sinus rhythm. No focal, lateralizing or epileptiform abnormalities were seen. No clinical or electrographic seizures were recorded. CONCLUSION: This EEG in awake state is abnormal due to presence of generalized slowing and disorganization of background consistent with nonspecific diffuse cerebral dysfunction such as seen in encephalopathy and developmental delay due to multiple potential causes. No epileptiform abnormalities were seen. This EEG was affected by motion and muscle artifact. Clinical correlation is recommended.
[2017-01-24 08:00] VITALS: BP 108/57
[2017-01-24] MEDS: SENOKOT S TAB PO SCH ×2 (09:00→21:00)
[2017-01-24] MEDS: DOCUSATE SOD LIQ 100MG/10ML UDC PO SCH ×2 (09:00→21:00)
[2017-01-24] MEDS: TOPIRAMATE (TopAMAX) 100 MG TAB PO SCH ×3 (09:10→21:52)
[2017-01-24] MEDS: SIMETHICONE 80 MG CHEW TAB PO SCH ×4 (09:10→21:52)
[2017-01-24] MEDS: BISACODYL 10 MG SUPP PR SCH ×2 (09:10→21:00)
[2017-01-24] MEDS: CLOTRIMAZOLE 1% TOPICAL CREAM 30GM EXT SCH ×2 (09:11→21:50)
[2017-01-24] MEDS: SODIUM CHLORIDE NASAL 0.65% SPRAY BTL (OCEAN) SCH ×3 (09:11→21:50)
[2017-01-24] MEDS: levETIRAcetam INJection 1,000 MG in D5W 100 ML IV SCH ×2 (09:11→21:51)
[2017-01-24] MEDS: MULTIVITAMINS CHILDREN'S CHEWABLE TABLET PO SCH (09:15)
--- NOTE | 2017-01-24 09:47 | IPNPDOC ---
Date Seen The patient was seen on 01/24/17. Progress Note SUBJECTIVE: Patient is nonverbal. appears unchanged from previous exams. OBJECTIVE PHYSICAL EXAMINATION: VITAL SIGNS: Please see below. GENERAL: Young man lying in bed chronic contractures disconjugate gaze tongue protrusion. Spontaneously moving in bed, sucking on his thumb HEENT: Dry mucous membrane disconjugate gaze CARDIOVASCULAR: S1-S2 not tachycardic. RESPIRATORY: Fairly clear to auscultation anteriorly. ABDOMINAL: Diminished bowel sounds abdomen is not distended EXTREMITIES: Contractures, no cyanosis or edema NEUROLOGICAL: At baseline nonverbal and uncooperative with exam unable to follow instructions LABORATORY DATA: Leukocytosis today which is new ESR trending down CRP trending down, mild hyponatremia Please see below. MICROBIOLOGY: Please see below. IMAGING: CT angiography of the of the abdomen and pelvis reveals improved appearance of the small large ball with high density contrast extending to the rectum excluding complete bowel obstruction continued but improved ileus no evidence of a drainable collection or abscess or ascites no obvious acute intra- abdominal or pelvic pathology CT angiography of the chest no evidence of PE, no acute pleural parenchymal or mediastinal process, decrease of cutaneous emphysema in relation to the ventriculoperitoneal shunt Abdominal flat plate reveals diffusely dilated bowel may be minimally improved compared to prior exam CT of the abdomen and pelvis from 01/20/2017 reveals distention the stomach and small bowel was collapsed terminal ileum possibly high-grade obstruction, as well as subcutaneous emphysema in the right anterior thorax and abdominal wall improved CT scan of the head reveals bilateral temporal parietal and left occipital lobe encephalomalacia as well as 2 sons in the right lateral ventricle no hydrocephalus and a small amount of pneumocephalus decreased from the previous study DVT prophylaxis ordered?: Patient is bedridden at baseline sequentials and teds ASSESSMENT AND PLAN: This is a 26-year-old man status post PROPELLER DRIVEN AIRPLANE MECHANIC shunt hospital course, complicated by post procedural fever and high-grade obstruction of the bowel. Problem #1 PROPELLER DRIVEN AIRPLANE MECHANIC shunt obstruction: The patient was taken to the OR urgently onto by Dr. Narvaez. Their help is greatly appreciated, this does not appear to be any further obstruction within the shunt at this time. Related to congenital hydrocephalus Problem #2 postprocedural fever: Post procedurally the patient is on cefuroxime and however this coverage was broadened to vancomycin and Zosyn given that the patient had a high fever and there was concern for possible LEACH RUNNER infection it was further broadened and the patient has now been on on vancomycin and meropenem for better CSF penetration day 5 of this coverage. The present source of infection is not immediately clear his cultures are all negative at this time including repeats. His abdomen is much improved. The patient has been afebrile for 24 hours we'll continue to follow him closely, she completed a full 7 days of antibiotic therapy we will results of an echocardiogram. Should he remain afebrile I suspect he may be able to be sent back to the [facility] as early as Friday however should he continue to spike fevers would have to revisit the possibility of infected shunt Problem #3 abdominal distention/pain: Dr. Adame is following the patient his help is greatly appreciated NGT has been removed, he is tolerating CLD, we have restarted his home bowel regimen, will defer to Dr. Adame is appropriate to advance his diet further Problem #4 developmental disability: The patient lives in the [facility] he has a seizure disorder he did have one seizure during his stay he stayed on Topamax as well as IV Keppra K monitor for seizures. If the patient is able to tolerate PO meds could consider d/c'd IV keppra in the near future or upon discharge. Problem #5 acute kidney injury: Appears to be resolved we will discontinue his IV fluids now that he is taking well by mouth Problem #6 subcutaneous emphysema: Resolving. Related to CSF collection the patient's neck secondary to obstructing PROPELLER DRIVEN AIRPLANE MECHANIC shunt at the time of admission does appear to be improving on most recent CT scan we'll continue to monitor. Problem #7 hyponatremia: Mild continue to monitor Problem #8 gastro esophageal reflux disease: The patient is on Protonix DISPOSITION: Appears to be improving, however will continue to cover with Abx and investigate source of fevers we will see how he progresses over the next 48 hours. I did speak with his mother this morning and update her over the phone regarding his status normally holds daily family conferences in the patient's room regarding his care VS, I&O, 24H, Fishbone Vital Signs/I&O Vital Signs Date Time Temp Pulse Resp B/P Pulse Ox O2 Delivery O2 Flow Rate FiO2 01/24/17 03:27 98.2 104 18 113/66 97 Room Air I&O- Last 24 Hours up to 6 AM 01/24/17 06:00 Intake Total 2930 ml Output Total 2775 ml Balance 155 ml Laboratory Data 24H LABS Laboratory Tests 2 01/24/17 05:11: Anion Gap 8, C-Reactive Protein, Quantitative 9.53H, Blood Urea Nitrogen 10, Creatinine 0.91, Sodium Level 132L, Potassium Level 3.7, Chloride Level 99, Carbon Dioxide Level 25, Calcium Level 7.8L, Erythrocyte Sedimentation Rate 62H , Glomerular Filtration Rate > 60.0, Magnesium Level 2.1 CBC/BMP Laboratory Tests 01/24/17 05:11 Calcium Level 7.8 L, Red Blood Count 4.26 L, Mean Corpuscular Volume 87.9, Mean Corpuscular Hemoglobin 30.0, Mean Corpuscular Hemoglobin Concent 34.1, Red Cell Distribution Width 12.2 Microbiology Microbiology 01/22/17 Blood Culture - Preliminary, Resulted No growth after 24 hours . All specim... 01/22/17 Blood Culture - Preliminary, Resulted No growth after 24 hours . All specim... 01/17/17 Blood Culture - Final, Complete NO GROWTH AFTER 5 DAYS 01/17/17 Blood Culture - Final, Complete NO GROWTH AFTER 5 DAYS 01/17/17 Gram Stain - Final, Complete 01/17/17 CSF Culture - Final, Complete 01/18/17 Respiratory Virus Panel (PCR) ([facility]) - Final, Complete 01/22/17 Urine Culture, Received Pending SALOMÓN TANNER MD Jan 24, 2017 09:47
[2017-01-24 12:00] VITALS: BP 110/58
[2017-01-24 16:00] VITALS: BP 113/64
[2017-01-24 19:10] VITALS: BP 117/58
[2017-01-24] MEDS: BENZAMYCIN TOP SCH (21:51)
[2017-01-24] MEDS: PANTOPRAZOLE 40MG INJ (PROTONIX) (C9113) IV SCH (21:51)
[2017-01-24] MEDS: MONTELUKAST 10 MG TAB PO SCH (21:52)
[2017-01-24] MEDS: SODIUM CHLORIDE 0.9% INJ 10 ML SYR IV PRN ×2 (21:53→23:32)
[2017-01-25 00:28] VITALS: BP 110/52
[2017-01-25] MEDS: VANCOMYCIN HCL 750 MG, VIAL MATE ADAPTER 1 EACH in D5W 250 ML IV SCH (03:22)
[2017-01-25 03:38] VITALS: BP 108/58
[2017-01-25] MEDS: MEROPENEM INJ 1 GM in D5W MINI-BAG PLUS 100 ML IV SCH ×3 (04:51→21:31)
[2017-01-25] MEDS: SODIUM CHLORIDE 0.9% INJ 10 ML SYR IV SCH ×2 (05:41→18:00)
[2017-01-25 06:43] LABS: MEAN CORPUSCULAR HGB CONC 33.9 g/dl (32.0-36.5); MEAN CORPUSCULAR VOLUME 88.6 fl (80.0-96.0); RED CELL DISTRIBUTION WIDTH 11.9 % (11.5-14.5); WHITE BLOOD COUNT 8.2 K/mm3 (4.0-10.0)
[2017-01-25 06:56] LABS: ANION GAP 9 MEQ/L (8-16); BLOOD UREA NITROGEN 14 MG/DL (7-18); CALCIUM LEVEL 7.5 MG/DL (8.5-10.1); CARBON DIOXIDE LEVEL 24 MEQ/L (21-32); CHLORIDE LEVEL 98 MEQ/L (98-107); CREATININE FOR GFR 0.89 MG/DL (0.70-1.30); GLOMERULAR FILTRATION RATE > 60.0 (>60); GLUCOSE, FASTING 101 MG/DL (70-105); MAGNESIUM LEVEL 2.1 MG/DL (1.8-2.4); POTASSIUM SERUM 3.9 MEQ/L (3.5-5.1); SODIUM LEVEL 131 MEQ/L (136-145)
[2017-01-25 08:00] VITALS: BP 107/65
[2017-01-25] MEDS: levETIRAcetam INJection 1,000 MG in D5W 100 ML IV SCH ×2 (08:25→21:31)
[2017-01-25] MEDS: SENOKOT S TAB PO SCH ×2 (08:27→21:32)
[2017-01-25] MEDS: MULTIVITAMINS CHILDREN'S CHEWABLE TABLET PO SCH (08:27)
[2017-01-25] MEDS: CLOTRIMAZOLE 1% TOPICAL CREAM 30GM EXT SCH ×2 (08:27→21:31)
[2017-01-25] MEDS: TOPIRAMATE (TopAMAX) 100 MG TAB PO SCH ×3 (08:27→21:32)
[2017-01-25] MEDS: BISACODYL 10 MG SUPP PR SCH ×2 (08:27→21:00)
[2017-01-25] MEDS: DOCUSATE SOD LIQ 100MG/10ML UDC PO SCH (08:27)
[2017-01-25] MEDS: SIMETHICONE 80 MG CHEW TAB PO SCH ×2 (08:27→12:03)
[2017-01-25] MEDS: SODIUM CHLORIDE NASAL 0.65% SPRAY BTL (OCEAN) SCH ×3 (08:28→21:31)
--- NOTE | 2017-01-25 11:00 | IPNPDOC ---
Date Seen The patient was seen on 01/25/17. Progress Note SUBJECTIVE: Patient is nonverbal. appears unchanged from previous exams. OBJECTIVE PHYSICAL EXAMINATION: VITAL SIGNS: Please see below. GENERAL: Young man lying in bed chronic contractures disconjugate gaze tongue protrusion. Spontaneously moving in bed HEENT: Dry mucous membrane disconjugate gaze CARDIOVASCULAR: S1-S2 not tachycardic. RESPIRATORY: Fairly clear to auscultation anteriorly. ABDOMINAL: Diminished bowel sounds abdomen is not distended EXTREMITIES: Contractures, no cyanosis or edema NEUROLOGICAL: At baseline nonverbal and uncooperative with exam unable to follow instructions LABORATORY DATA: Please see below. MICROBIOLOGY: Please see below. IMAGING: CT angiography of the of the abdomen and pelvis reveals improved appearance of the small large ball with high density contrast extending to the rectum excluding complete bowel obstruction continued but improved ileus no evidence of a drainable collection or abscess or ascites no obvious acute intra- abdominal or pelvic pathology CT angiography of the chest no evidence of PE, no acute pleural parenchymal or mediastinal process, decrease of cutaneous emphysema in relation to the ventriculoperitoneal shunt Abdominal flat plate reveals diffusely dilated bowel may be minimally improved compared to prior exam CT of the abdomen and pelvis from 01/20/2017 reveals distention the stomach and small bowel was collapsed terminal ileum possibly high-grade obstruction, as well as subcutaneous emphysema in the right anterior thorax and abdominal wall improved CT scan of the head reveals bilateral temporal parietal and left occipital lobe encephalomalacia as well as 2 sons in the right lateral ventricle no hydrocephalus and a small amount of pneumocephalus decreased from the previous study DVT prophylaxis ordered?: Patient is bedridden at baseline sequentials and teds ASSESSMENT AND PLAN: This is a 26-year-old man status post COAL BAGGER shunt hospital course, complicated by post procedural fever and high-grade obstruction of the bowel. Problem #1 COAL BAGGER shunt obstruction: The patient was taken to the OR urgently onto by Dr. Narvaez. Their help is greatly appreciated, this does not appear to be any further obstruction within the shunt at this time. Related to congenital hydrocephalus Problem #2 postprocedural fever: Post procedurally the patient is on cefuroxime and however this coverage was broadened to vancomycin and Zosyn given that the patient had a high fever and there was concern for possible RIP/MOULD OPERATOR infection it was further broadened and the patient has now been on on vancomycin and meropenem for better CSF penetration day 6 of this coverage. The present source of infection is not immediately clear his cultures are all negative at this time including repeats. His abdomen is much improved. The patient has been afebrile for >24 hours we'll continue to follow him closely, he should complete a full 7 days of antibiotic therapy and we will review results of an echocardiogram. Should he remain afebrile I suspect he may be able to be sent back to the [facility] [[email or web address] as early as Friday however should he continue to spike fevers would have to revisit the possibility of infected shunt Problem #3 abdominal distention/pain: Dr. Adame is following the patient his help is greatly appreciated NGT has been removed, he is tolerating CLD, we have restarted his home bowel regimen, will defer to Dr. Adame is appropriate to advance his diet further Problem #4 developmental disability: The patient lives in the [facility] [email or web address] he has a seizure disorder he did have one seizure during his stay he stayed on Topamax as well as IV Keppra K monitor for seizures. If the patient is able to tolerate PO meds could consider d/c'd IV keppra in the near future or upon discharge. Problem #5 acute kidney injury: Appears to be resolved IV fluids have been d/c' d now that he is taking well by mouth Problem #6 subcutaneous emphysema: Resolving. Related to CSF collection the patient's neck secondary to obstructing COAL BAGGER shunt at the time of admission does appear to be improving on most recent CT scan we'll continue to monitor. Problem #7 hyponatremia: Mild continue to monitor Problem #8 gastro esophageal reflux disease: The patient is on Protonix DISPOSITION: Appears to be improving, however will continue to cover with Abx and investigate source of fevers we will see how he progresses over the next 48 hours. I did speak with his mother bedside today and answer all questions to her satisfaction. From a medical perspective he will likely be ready to go to [facility] [[email or web address]] by Friday. VS, I&O, 24H, Fishbone Vital Signs/I&O Vital Signs Date Time Temp Pulse Resp B/P Pulse Ox O2 Delivery O2 Flow Rate FiO2 01/25/17 08:00 97.1 85 18 107/65 99 Room Air I&O- Last 24 Hours up to 6 AM 01/25/17 06:00 Intake Total 1180 ml Output Total 3 ml Balance 1177 ml Laboratory Data 24H LABS Laboratory Tests 2 01/25/17 05:42: Anion Gap 9, C-Reactive Protein, Quantitative 10.20H, Blood Urea Nitrogen 14, Creatinine 0.89, Sodium Level 131L, Potassium Level 3.9, Chloride Level 98, Carbon Dioxide Level 24, Calcium Level 7.5L, Erythrocyte Sedimentation Rate 62H , Glomerular Filtration Rate > 60.0, Magnesium Level 2.1 CBC/BMP Laboratory Tests 01/25/17 05:42 Calcium Level 7.5 L, Red Blood Count 4.06 L, Mean Corpuscular Volume 88.6, Mean Corpuscular Hemoglobin 30.0, Mean Corpuscular Hemoglobin Concent 33.9, Red Cell Distribution Width 11.9 Microbiology Microbiology 01/22/17 Blood Culture - Preliminary, Resulted No Growth after 48 hours. All Specime... 01/22/17 Blood Culture - Preliminary, Resulted No Growth after 48 hours. All Specime... 01/17/17 Blood Culture - Final, Complete NO GROWTH AFTER 5 DAYS 01/17/17 Blood Culture - Final, Complete NO GROWTH AFTER 5 DAYS 01/17/17 Gram Stain - Final, Complete 01/17/17 CSF Culture - Final, Complete 01/18/17 Respiratory Virus Panel (PCR) ([facility]) - Final, Complete 01/22/17 Urine Culture - Final, Complete SLAOMÓN TANNER MD Jan 25, 2017 11:00
--- NOTE | 2017-01-25 11:50 | ECHO ---
DATE OF PROCEDURE: 01/23/2017 REFERRING PHYSICIAN: PATIENT LOCATION: PCU REASON FOR ECHOCARDIOGRAM: Fever. 2D MEASUREMENTS: IVS: 1.2 cm LV: 3.1 cm LVPW: 1.1 cm LA: 2.7 cm Aorta: 2.5 cm DOPPLER MEASUREMENTS: Peak velocity across the aortic valve: 1.3 m/s Peak velocity across the LVOT: 1.1 m/s Maximum tricuspid valve velocity: 2.4 m/s 2D COMMENTS: 1. Normal left ventricular size, wall thickness and normal global left ventricular systolic function. The estimated global left ventricular systolic ejection fraction is 65 to 70%. 2. Normal left atrium. Normal right atrium and right ventricle. 3. The atrial septum appeared to be normal without evidence of defect or shunt. 4. Normal aortic root. 5. There is a small localized pericardial effusion noted mainly at the apex with small indentation? 1:24__noted on the right ventricle. 6. The aortic valve, mitral valve, tricuspid valve and pulmonic valve appeared to be normal. The proximal pulmonary artery branches also appeared to be normal. 7. The inferior vena cava was not visualized. DOPPLER: It detects trace mitral regurgitation, trace tricuspid regurgitation, and trace pulmonic regurgitation. The calculated pulmonary artery systolic pressure was about 30 mmHg. IMPRESSION: 1. Normal global left ventricular systolic function. Assessment of the left ventricular diastolic function was not done. 2. Trace mitral regurgitation. 3. Trace tricuspid regurgitation with probably mild pulmonary hypertension. 4. Trace pulmonic regurgitation. 5. Small localized pericardial effusion was noted mainly at the apex. I will recommend a repeat echocardiogram this coming week and prior to being discharged for further evaluation. 6. The study was technically limited because the patient was not quite cooperative during the test.
[2017-01-25 12:00] VITALS: BP 118/57
[2017-01-25 16:00] VITALS: BP 95/51
[2017-01-25] MEDS: VANCOMYCIN HCL 1,000 MG, VIAL MATE ADAPTER 1 EACH in D5W 250 ML IV SCH (16:53)
[2017-01-25 20:00] VITALS: BP 104/68
[2017-01-25] MEDS: DOCUSATE SODIUM 100 MG CAP PO SCH ×2 (21:00→21:32)
[2017-01-25] MEDS: BENZAMYCIN TOP SCH (21:32)
[2017-01-25] MEDS: PANTOPRAZOLE 40MG INJ (PROTONIX) (C9113) IV SCH (21:32)
[2017-01-25] MEDS: MONTELUKAST 10 MG TAB PO SCH (21:32)
[2017-01-25] MEDS: SODIUM CHLORIDE 0.9% INJ 10 ML SYR IV PRN ×2 (21:33→22:30)
[2017-01-26] VITALS: BP 109/57
[2017-01-26] MEDS: VANCOMYCIN HCL 1,000 MG, VIAL MATE ADAPTER 1 EACH in D5W 250 ML IV SCH ×2 (03:19→16:36)
[2017-01-26] MEDS: MEROPENEM INJ 1 GM in D5W MINI-BAG PLUS 100 ML IV SCH ×3 (04:37→21:21)
[2017-01-26 05:00] VITALS: BP 104/63
[2017-01-26] MEDS: SODIUM CHLORIDE 0.9% INJ 10 ML SYR IV SCH ×2 (05:18→16:55)
[2017-01-26 05:44] LABS: MEAN CORPUSCULAR HEMOGLOBIN 29.7 pg (27.0-33.0); MEAN CORPUSCULAR HGB CONC 33.6 g/dl (32.0-36.5); MEAN CORPUSCULAR VOLUME 88.3 fl (80.0-96.0); WHITE BLOOD COUNT 8.4 K/mm3 (4.0-10.0)
[2017-01-26 06:04] LABS: ANION GAP 10 MEQ/L (8-16); BLOOD UREA NITROGEN 15 MG/DL (7-18); CALCIUM LEVEL 7.7 MG/DL (8.5-10.1); CARBON DIOXIDE LEVEL 25 MEQ/L (21-32); CHLORIDE LEVEL 99 MEQ/L (98-107); CREATININE FOR GFR 0.85 MG/DL (0.70-1.30); GLOMERULAR FILTRATION RATE > 60.0 (>60); GLUCOSE, FASTING 122 MG/DL (70-105); MAGNESIUM LEVEL 2.3 MG/DL (1.8-2.4); POTASSIUM SERUM 3.4 MEQ/L (3.5-5.1); SODIUM LEVEL 134 MEQ/L (136-145)
[2017-01-26 08:00] VITALS: BP 116/64
[2017-01-26] MEDS: MULTIVITAMINS CHILDREN'S CHEWABLE TABLET PO SCH (08:14)
[2017-01-26] MEDS: CLOTRIMAZOLE 1% TOPICAL CREAM 30GM EXT SCH ×2 (08:14→20:46)
[2017-01-26] MEDS: SODIUM CHLORIDE NASAL 0.65% SPRAY BTL (OCEAN) SCH ×3 (08:14→20:47)
[2017-01-26] MEDS: levETIRAcetam INJection 1,000 MG in D5W 100 ML IV SCH ×2 (08:14→20:47)
[2017-01-26] MEDS: TOPIRAMATE (TopAMAX) 100 MG TAB PO SCH ×3 (08:14→20:46)
[2017-01-26] MEDS: SENOKOT S TAB PO SCH ×2 (08:14→17:40)
[2017-01-26] MEDS: DOCUSATE SODIUM 100 MG CAP PO SCH ×2 (08:14→17:40)
[2017-01-26] MEDS: BISACODYL 10 MG SUPP PR SCH (08:17)
--- NOTE | 2017-01-26 11:52 | IPNPDOC ---
Date Seen The patient was seen on 01/26/17. Progress Note SUBJECTIVE: Patient is nonverbal. appears unchanged from previous exams. OBJECTIVE PHYSICAL EXAMINATION: VITAL SIGNS: Please see below. GENERAL: Young man lying in bed chronic contractures disconjugate gaze tongue protrusion. Spontaneously moving in bed HEENT: Dry mucous membrane disconjugate gaze CARDIOVASCULAR: S1-S2 not tachycardic. RESPIRATORY: Fairly clear to auscultation anteriorly. ABDOMINAL: Diminished bowel sounds abdomen is not distended EXTREMITIES: Contractures, no cyanosis or edema NEUROLOGICAL: At baseline nonverbal and uncooperative with exam unable to follow instructions LABORATORY DATA: Please see below. MICROBIOLOGY: Please see below. IMAGING: CT angiography of the of the abdomen and pelvis reveals improved appearance of the small large ball with high density contrast extending to the rectum excluding complete bowel obstruction continued but improved ileus no evidence of a drainable collection or abscess or ascites no obvious acute intra- abdominal or pelvic pathology CT angiography of the chest no evidence of PE, no acute pleural parenchymal or mediastinal process, decrease of cutaneous emphysema in relation to the ventriculoperitoneal shunt Abdominal flat plate reveals diffusely dilated bowel may be minimally improved compared to prior exam CT of the abdomen and pelvis from 01/20/2017 reveals distention the stomach and small bowel was collapsed terminal ileum possibly high-grade obstruction, as well as subcutaneous emphysema in the right anterior thorax and abdominal wall improved CT scan of the head reveals bilateral temporal parietal and left occipital lobe encephalomalacia as well as 2 sons in the right lateral ventricle no hydrocephalus and a small amount of pneumocephalus decreased from the previous study DVT prophylaxis ordered?: Patient is bedridden at baseline sequentials and teds Echo: 1. Normal global left ventricular systolic function. Assessment of the left ventricular diastolic function was not done. 2. Trace mitral regurgitation. 3. Trace tricuspid regurgitation with probably mild pulmonary hypertension. 4. Trace pulmonic regurgitation. 5. Small localized pericardial effusion was noted mainly at the apex. I will recommend a repeat echocardiogram this coming week and prior to being discharged for further evaluation. 6. The study was technically limited because the patient was not quite cooperative during the test. ASSESSMENT AND PLAN: This is a 26-year-old man status post REMOTE ENCODING OPERATIONS SUPERVISOR shunt hospital course, complicated by post procedural fever and high-grade obstruction of the bowel. Problem #1 REMOTE ENCODING OPERATIONS SUPERVISOR shunt obstruction: The patient was taken to the OR urgently onto by Dr. Narvaez. There does not appear to be any further obstruction within the shunt at this time. Related to congenital hydrocephalus Problem #2 postprocedural fever: Post procedurally the patient is on cefuroxime and however this coverage was broadened to vancomycin and Zosyn given that the patient had a high fever and there was concern for possible FOOD PROCESSOR infection it was further broadened and the patient has now been on on vancomycin and meropenem for better CSF penetration day 7 of this coverage. The present source of infection is not immediately clear his cultures are all negative at this time including repeats. His abdomen is much improved. The patient has been afebrile for >24 hours we'll continue to follow him closely, he will complete a full 7 days of antibiotic therapy and we will review results of an echocardiogram quick look on Friday prior to disposition. Should he remain afebrile and repeat quick look echo ok, I suspect he may be able to be sent back to the [facility] as early as Friday however should he continue to spike fevers once off Abx would have to revisit the possibility of infected shunt. Problem #3 abdominal distention/pain: Dr. Adame is following the patient his help is greatly appreciated NGT has been removed, he is tolerating CLD, we have restarted his home bowel regimen, will defer to Dr. Adame is appropriate to advance his diet further Problem #4 developmental disability: The patient lives in the [facility] he has a seizure disorder he did have one seizure during his stay he stayed on Topamax as well as IV Keppra K, d/c keppra on discharge, c/w Topamax. Problem #5 acute kidney injury: Appears to be resolved IV fluids have been d/c' d now that he is taking well by mouth Problem #6 subcutaneous emphysema: Resolving. Related to CSF collection the patient's neck secondary to obstructing REMOTE ENCODING OPERATIONS SUPERVISOR shunt at the time of admission does appear to be improving on most recent CT scan we'll continue to monitor. Problem #7 hyponatremia: Mild continue to monitor Problem #8 gastro esophageal reflux disease: The patient is on Protonix DISPOSITION: Patient will finish Abx today, quick look echo tomorrow AM to eval pericardial effusion, if that is ok I think the patient can return to [facility] tomorrow on all previous medications without change. All information relayed to nursing staff. At this time will sign off, please call with any specific questions. Thank you for involving us in this interesting patients care. VS, I&O, 24H, Fishbone Vital Signs/I&O Vital Signs Date Time Temp Pulse Resp B/P Pulse Ox O2 Delivery O2 Flow Rate FiO2 01/26/17 08:00 96.6 89 18 116/64 100 Room Air I&O- Last 24 Hours up to 6 AM 01/26/17 06:00 Intake Total 1620 ml Output Total 0 ml Balance 1620 ml Laboratory Data 24H LABS Laboratory Tests 2 01/25/17 14:58: Vancomycin Level Trough 10.3 01/26/17 05:20: Anion Gap 10, C-Reactive Protein, Quantitative 8.19H, Blood Urea Nitrogen 15, Creatinine 0.85, Sodium Level 134L, Potassium Level 3.4L, Chloride Level 99, Carbon Dioxide Level 25, Calcium Level 7.7L, Erythrocyte Sedimentation Rate 63H , Glomerular Filtration Rate > 60.0, Magnesium Level 2.3 CBC/BMP Laboratory Tests 01/26/17 05:20 Calcium Level 7.7 L, Red Blood Count 3.98 L, Mean Corpuscular Volume 88.3, Mean Corpuscular Hemoglobin 29.7, Mean Corpuscular Hemoglobin Concent 33.6, Red Cell Distribution Width 12.0 Microbiology Microbiology 01/22/17 Blood Culture - Preliminary, Resulted No Growth after 72 hours. All specime... 01/22/17 Blood Culture - Preliminary, Resulted No Growth after 72 hours. All specime... 01/17/17 Blood Culture - Final, Complete NO GROWTH AFTER 5 DAYS 01/17/17 Blood Culture - Final, Complete NO GROWTH AFTER 5 DAYS 01/17/17 Gram Stain - Final, Complete 01/17/17 CSF Culture - Final, Complete 01/18/17 Respiratory Virus Panel (PCR) ([facility]) - Final, Complete 01/22/17 Urine Culture - Final, Complete SALOMÓN TANNER MD Jan 26, 2017 11:52
[2017-01-26 12:00] VITALS: BP 90/50
[2017-01-26 16:00] VITALS: BP 122/80
[2017-01-26 20:30] VITALS: BP 107/58
[2017-01-26] MEDS: MONTELUKAST 10 MG TAB PO SCH (20:46)
[2017-01-26] MEDS: BENZAMYCIN TOP SCH (20:47)
[2017-01-26] MEDS: PANTOPRAZOLE 40MG INJ (PROTONIX) (C9113) IV SCH (20:47)
[2017-01-27 00:31] VITALS: BP 93/63
[2017-01-27] MEDS: VANCOMYCIN HCL 1,000 MG, VIAL MATE ADAPTER 1 EACH in D5W 250 ML IV SCH (04:36)
[2017-01-27 05:38] VITALS: BP 104/59
[2017-01-27] MEDS: SODIUM CHLORIDE 0.9% INJ 10 ML SYR IV SCH (05:50)
[2017-01-27] MEDS: MEROPENEM INJ 1 GM in D5W MINI-BAG PLUS 100 ML IV SCH ×2 (05:50→13:25)
[2017-01-27 06:13] LABS: MEAN CORPUSCULAR HEMOGLOBIN 29.9 pg (27.0-33.0); MEAN CORPUSCULAR HGB CONC 33.7 g/dl (32.0-36.5); MEAN CORPUSCULAR VOLUME 88.7 fl (80.0-96.0); RED CELL DISTRIBUTION WIDTH 11.9 % (11.5-14.5); WHITE BLOOD COUNT 7.8 K/mm3 (4.0-10.0)
[2017-01-27 06:50] LABS: ANION GAP 10 MEQ/L (8-16); BLOOD UREA NITROGEN 18 MG/DL (7-18); CALCIUM LEVEL 7.8 MG/DL (8.5-10.1); CARBON DIOXIDE LEVEL 24 MEQ/L (21-32); CHLORIDE LEVEL 102 MEQ/L (98-107); CREATININE FOR GFR 0.72 MG/DL (0.70-1.30); GLOMERULAR FILTRATION RATE > 60.0 (>60); GLUCOSE, FASTING 98 MG/DL (70-105); MAGNESIUM LEVEL 2.4 MG/DL (1.8-2.4); POTASSIUM SERUM 3.8 MEQ/L (3.5-5.1); SODIUM LEVEL 136 MEQ/L (136-145)
[2017-01-27 08:00] VITALS: BP 103/65
[2017-01-27] MEDS: DOCUSATE SODIUM 100 MG CAP PO SCH (09:00)
[2017-01-27] MEDS: SENOKOT S TAB PO SCH (09:00)
[2017-01-27] MEDS: CLOTRIMAZOLE 1% TOPICAL CREAM 30GM EXT SCH (09:09)
[2017-01-27] MEDS: SODIUM CHLORIDE NASAL 0.65% SPRAY BTL (OCEAN) SCH (09:09)
[2017-01-27] MEDS: MULTIVITAMINS CHILDREN'S CHEWABLE TABLET PO SCH (09:24)
[2017-01-27] MEDS: levETIRAcetam INJection 1,000 MG in D5W 100 ML IV SCH (09:25)
[2017-01-27] MEDS: TOPIRAMATE (TopAMAX) 100 MG TAB PO SCH ×2 (10:32→17:20)
[2017-01-27 12:00] VITALS: BP 119/56
[2017-01-27 16:00] VITALS: BP 108/55
[2017-01-27] MEDS ORDERED: KEPP500T6 PO (16:30)
[2017-01-27] MEDS ORDERED: TYLE325T5 PR (16:30)
--- NOTE | 2017-01-27 17:32 | IPN ---
DATE: 01/27/2017 SUBJECTIVE: The patient is accompanied by a worker from the patient's home who is relatively familiar with the patient. According to nursing staff and the worker, the patient appears to be at his baseline. He is sitting comfortably in bed. He has no new symptoms or findings. The patient's vital signs are stable. He has been afebrile. His labs are stable. The patient has been cleared for discharge to the [facility]. He will resume physical therapy (PT), occupational therapy (OT), and day-hab. He will continue his current medications. He has one new medication added, Keppra 500 mg by mouth twice a day. He will followup with his neurologist for seizure management. It is understood that the patient will follow seizure precautions. The home is to call if any new symptoms for this appointment, or any questions. Dr. Mauro was present for this round.
--- NOTE | 2017-01-27 18:16 | DSES ---
DATE OF ADMISSION: 01/16/2017 DATE OF DISCHARGE: 01/27/2017 DISCHARGE DIAGNOSIS: Hydrocephalus. HOSPITAL COURSE: The patient had been seen in the emergency room (ER), following a fall with a mechanical breakdown of his shunt. His history is significant for sever developmental delay, blindness, seizure disorder, and chronic hydrocephalus. He is nonverbal. On 01/17, the patient underwent procedure, placement of new Medtronic StrattaMR valve programmed at 1.5 under general anesthesia by Dr. Mauro. His hospital course was complicated by a fever of unknown origin, as well as a seizure occurring on 01/18 around 7 a.m. Later that morning, he had an episode of vomiting, was noted to be tense and had distended abdomen. He was also noted to be intermittently lethargic. CT of the abdomen and pelvis on 01/20 revealed collapsed terminal ileum with possible high-grade obstruction. Nasogastric (NG) tube was administered. He was also started on intravenous (IV) Keppra for seizure precautions. The patient's disposition began to improve. The patient had been afebrile. He has been cleared for discharge to [facility] ([facility] The patient is not to have any unsupervised activity. He will continue physical therapy (PT), occupational therapy (OT), and day-habilitation (hab). The patient is to be monitored, and if any new symptoms or any questions, they are to call the hospital. The patient is to follow seizure precautions. He will continue all of his preadmission medications, as well as a new medication, Keppra 500 mg by mouth twice a day. He is also to followup with his neurologist for seizure management. The patient is also to followup with Dr. Thornton.
--- NOTE | 2017-01-28 05:50 | ECHO ---
DATE OF PROCEDURE: 01/27/2017 REFERRING PHYSICIAN: Dr. Mak and Dr. Mauro. INDICATION: Followup on pericardial effusion. HEIGHT: 152 cm. WEIGHT: 41 kg. DIMENSIONS: IVS: LV: LVPW: LA: Aorta: FINDINGS This is a limited quick look echocardiogram on patient who previously was found to have pericardial effusion. Unfortunately only very limited images were obtained and no valvular evaluation was performed The left ventricle is of normal size and globally there is normal LV systolic function. Right ventricle does not appear grossly enlarged. Both atria appear normal. Aortic mitral tricuspid and pulmonic valves all appear normal based on limited visualization. There is small pericardial effusion principally adjacent to right ventricular free wall. There is no cardiac compression based on available images. Because the Doppler evaluation of mitral and tricuspid inflow was not performed the definite judgment is not possible but it is unlikely that this pericardial effusion is clinically significant. Doppler interrogation was not performed. CONCLUSIONS: 1. Limited study. 2. Grossly preserved LV systolic function. 3. RV does not appear dilated. 4. Normal all four cardiac valves based on 2-D imaging. 5 Small pericardial effusion adjacent to RV free wall. 6 Unable to estimate central venous pressure and pulmonary artery pressure. COMMENT: Subacute bacterial endocarditis (SBE) prophylaxis not recommended. Pericardial effusion remains small. MTDD
== END 2017-01-27 17:30 | disposition home or self-care (01) | DRG 21 ==
LOC: M ED 19:46 → M ED INP 22:56 → M ICU 01-17 01:53 → M PCU 01-22 16:56
PROVIDERS: ADMIT Neurological Surgery; ATTEND Neurological Surgery
PROC: 0WWG00Z Revision of Drainage Device in Peritoneal Cavity, Open Approach (ICD-10-PCS; principal; 2017-01-17)
PROC: 0NW Head and Facial Bones, Revision (ICD-10-PCS; 2017-01-17)
DX: T85.09XA Other mechanical complication of ventricular intracranial (communicating) shunt, initial encounter (principal); K56.69 Other intestinal obstruction; N17.9 Acute kidney failure, unspecified; R40.20 Unspecified coma; F72 Severe intellectual disabilities; E87.1 Hypo-osmolality and hyponatremia; T81.82XA Emphysema (subcutaneous) resulting from a procedure, initial encounter; Q03.9 Congenital hydrocephalus, unspecified; G40.909 Epilepsy, unspecified, not intractable, without status epilepticus; R50.82 Postprocedural fever; H54.0 Blindness, both eyes; Z79.899 Other long term (current) drug therapy; R00.0 Tachycardia, unspecified; K21.9 Gastro-esophageal reflux disease without esophagitis; G81.11 Spastic hemiplegia affecting right dominant side; G81.14 Spastic hemiplegia affecting left nondominant side

== ENCOUNTER 2017-01-29 09:10 | Emergency (ER) | payer MEDICAID ==
[~2017-01-29 09:10] MED LIST changes: +BENZ35GEL TOP; +CETI10TA PO; +CLOTR1CR EXT; +DOCU100C PO; +DULC10SU2 PR; +ENEMENE3 PR; +ESOM1CAP5 PO; +KEPP500T6 PO; +MILKSUS PO; +MINO100C PO; +MONT10TA2 PO; +SALI0.653; +SUDA30TA PO; +TOPA100T8 PO; +TYLE325T5 PR; +VITACHTA PO
[2017-01-29] MEDS: NS 1,000 ML IV SCH ×2 (09:26→10:32)
--- NOTE | 2017-01-29 10:18 | REP ---
CT HEAD WITHOUT CONTRAST: HISTORY: STUDENT AFFAIRS DEAN shunt. COMPARISON: 01/20/2017 There is volume loss in the temporoparietal and left occipital lobes. There is no intraparenchymal hemorrhage, mass, or midline shift. A punctate calcification is present in the left frontal lobe. Two shunts are present in the right lateral ventricle. The third ventricle and anterior horns of the lateral ventricles are slightly increased in size, however, there is no hydrocephalus. There has been resolution of the previously noted pneumocephalus. The cortical sulci of the right parietal lobe are dilated consistent with minimal volume loss. There is no _ extra cerebral __ collection. The visualized sinuses are clear. IMPRESSION: 1. Bilateral temporoparietal and left occipital lobe encephalomalacia. 2. There are two shunts in the right lateral ventricle. The ventricles are slightly increased in size compared to the previous study, however, there is no hydrocephalus. 3. There has been resolution of the previously noted pneumocephalus. Signed by Jorge Pearson MD 01/29/2017 10:22 A
[2017-01-29 10:21] LABS: BASO % 0.4 % (0.0-1.0); EOS # 0.2 K/mm3 (0.0-0.50); EOS % 2.2 % (0.0-3.0); LARGE UNSTAINED CELL # 0.2 K/mm3 (0.0-0.4); LARGE UNSTAINED CELL % 1.5 % (0.0-4.0); LYMPH # 1.3 K/mm3 (1.5-6.5); LYMPH % 11.6 % (24.0-44.0); MEAN CORPUSCULAR HEMOGLOBIN 29.5 pg (27.0-33.0); MEAN CORPUSCULAR VOLUME 89.6 fl (80.0-96.0); MONO # 0.6 K/mm3 (0.0-0.8); MONO % 5.5 % (0.0-5.0); NEUTROPHILS # 7.8 K/mm3 (1.8-7.7); NEUTROPHILS % 78.8 % (36.0-66.0); PLATELET COUNT, AUTOMATED 571 k/mm3 (150-450); RED CELL DISTRIBUTION WIDTH 12.1 % (11.5-14.5); WHITE BLOOD COUNT 9.9 K/mm3 (4.0-10.0)
[2017-01-29 10:29] LABS: ABG BASE EXCESS 1.2 (-2.0-2.0); ABG HCO3 25.2 MEQ/L (22.0-26.0); ABG PARTIAL PRESSURE CO2 37.8 mmHg (35.0-45.0); ABG STANDARD HCO3 25.5 MEQ/L (22.0-26.0); ABG TOTAL CO2 26.3 MEQ/L (22.0-29.0); ABG pH (ARTERIAL) 7.441 UNITS (7.350-7.450)
--- NOTE | 2017-01-29 10:35 | REP ---
SINGLE VIEW CHEST: Single AP view of the chest is performed. There is no acute infiltrate or pulmonary edema. The heart is normal in size and the mediastinal silhouette is unremarkable. CHIMNEY BUILDER shunt crosses the right hemithorax. IMPRESSION: No acute pulmonary disease. Signed by Tylor Bell MD 01/29/2017 05:21 P
--- NOTE | 2017-01-29 10:41 | REP ---
SHUNT SERIES: Lateral and AP views of the skull are performed in addition to AP views of the chest and abdomen. Comparison made with prior skull views . The PSYCHOTHERAPIST COUNSELOR shunt is again seen in the right posterior intracranial region. There is a metallic hexagonal valve structure which appears to be in a similar orientation compared to the prior exam. Inferior to the valve, the shunt courses caudally across the right hemithorax and into the right upper and lower abdominal region. The tip is in the right pelvis. There is no kinking or discontinuity of the shunt. There is a nonobstructive bowel gas pattern. There is a dysplastic appearance of the right hip with superior subluxation of the right femoral head out of a shallow right acetabulum. Signed by Tylor Bell MD 01/29/2017 05:21 P
[2017-01-29 10:53] LABS: ALBUMIN/GLOBULIN RATIO 0.67 (1.00-1.93); ALKALINE PHOSPHATASE 140 U/L (45-117); ALT/SGPT 133 U/L (12-78); ANION GAP 8 MEQ/L (8-16); AST/SGOT 30 U/L (15-37); BILIRUBIN,DIRECT < 0.1 MG/DL (0.0-0.2); BILIRUBIN,TOTAL 0.3 MG/DL (0.2-1.0); BLOOD UREA NITROGEN 26 MG/DL (7-18); CALCIUM LEVEL 8.5 MG/DL (8.5-10.1); CARBON DIOXIDE LEVEL 30 MEQ/L (21-32); CHLORIDE LEVEL 100 MEQ/L (98-107); CREATININE FOR GFR 1.03 MG/DL (0.70-1.30); GLOMERULAR FILTRATION RATE > 60.0 (>60); GLUCOSE, FASTING 86 MG/DL (70-105); POTASSIUM SERUM 4.3 MEQ/L (3.5-5.1); SODIUM LEVEL 138 MEQ/L (136-145); TOTAL PROTEIN 7.5 GM/DL (6.4-8.2)
--- NOTE | 2017-01-29 10:53 | REP ---
LIMITED SHUNT SERIES: Lateral view of the skull is performed. The DIRECTOR GLOBAL STRATEGIC PUBLISHER SALES shunt was reportedly reprogrammed. The metallic valve structure appears to have rotated slightly, with the triangular notch pointing approximately 14 degrees more caudal than on the prior exam earlier today. There is otherwise no change. Signed by Tylor Bell MD 01/29/2017 05:21 P
--- NOTE | 2017-01-29 10:53 | ECGEPIP ---
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
[2017-01-29 16:28] VITALS: BP 92/51
--- NOTE | 2017-01-29 18:56 | IPN ---
DATE: 01/29/2017 Dr. Mauro and I visited patient in the emergency room (ER) today. He was brought in by his mother for concerns of lethargy. He was recently discharged from the hospital a few days prior for shunt failure, which had fractured at two places. He underwent replacement of a new CAMPUS SECURITY OFFICER shunt, which was programmed at 1.5 ( [employer]tron[employer] Strata MR) at 1.5 . patient was lethargic, there was no change in his bilateral spastic hemiplegia left worse than right, and had little spontaneous movements or groaning which he often does at his baseline. patent is afebrile. Incision is healed. The CT scan showed a minimal opening up of the third ventricle and the right temporal horn, though the ventricular system left side was unchanged. Shunt XRAYS were done, which showed intact shunt continuity, and the shunt valve images were not clear. The shunt was reprogrammed once agin at 1.5. A few hours later, he perked up, and according to his mother, was back to his baseline. On revaluation a few hours later, he was listening to radio, laughing, and appeared cheerful. labs were discussed with Dr. Guajardo, and no convincing evidence of sepsis was established or considered. patient's mother wished to take him home back to [facility], she had follow up instructions. She was advised to follow up with his neurologist, particularly she had concerns with Sunny. YANNICK
== END 2017-01-29 16:57 | disposition home or self-care (01) ==
LOC: M ED 09:10 → EDBD 09:10 → M ED 16:57
DX: R41.82 Altered mental status, unspecified (principal); Z91.040 Latex allergy status; Z79.899 Other long term (current) drug therapy; R53.1 Weakness; Z98.2 Presence of cerebrospinal fluid drainage device

== ENCOUNTER 2017-02-08 09:00 | Emergency (ER) | payer MEDICAID ==
[~2017-02-08] VITALS: Ht 154.9 cm; Wt 96.2 kg
[2017-02-08] MEDS ORDERED: BENZ5GEL16 TOP (09:22)
[2017-02-08] MEDS ORDERED: DEBR6.5S4 AU (09:22)
[2017-02-08] MEDS ORDERED: SUDO30TA PO (09:22)
[2017-02-08] MEDS ORDERED: ENEM1ENE4 PR (09:22)
[2017-02-08] MEDS ORDERED: NS 1,000 ML IV ONE (09:45)
[2017-02-08] MEDS ORDERED: levETIRAcetam INJection 1,000 MG in D5W 100 ML IV ONE (09:45)
[2017-02-08 10:03] LABS: EOS # 0.1 K/mm3 (0.0-0.50); EOS % 0.4 % (0.0-3.0); LARGE UNSTAINED CELL # 0.1 K/mm3 (0.0-0.4); LARGE UNSTAINED CELL % 0.5 % (0.0-4.0); LYMPH # 0.5 K/mm3 (1.5-6.5); LYMPH % 3.7 % (24.0-44.0); MEAN CORPUSCULAR HGB CONC 33.4 g/dl (32.0-36.5); MONO # 0.3 K/mm3 (0.0-0.8); MONO % 2.4 % (0.0-5.0); NEUTROPHILS # 13.1 K/mm3 (1.8-7.7); PLATELET COUNT, AUTOMATED 388 k/mm3 (150-450); RED CELL DISTRIBUTION WIDTH 11.9 % (11.5-14.5); WHITE BLOOD COUNT 14.1 K/mm3 (4.0-10.0)
[2017-02-08 10:20] LABS: ALBUMIN/GLOBULIN RATIO 0.64 (1.00-1.93); ALKALINE PHOSPHATASE 169 U/L (45-117); ALT/SGPT 112 U/L (12-78); ANION GAP 12 MEQ/L (8-16); AST/SGOT 22 U/L (15-37); BILIRUBIN,DIRECT 0.1 MG/DL (0.0-0.2); BILIRUBIN,TOTAL 0.3 MG/DL (0.2-1.0); BLOOD UREA NITROGEN 18 MG/DL (7-18); CALCIUM LEVEL 8.8 MG/DL (8.5-10.1); CARBON DIOXIDE LEVEL 25 MEQ/L (21-32); CHLORIDE LEVEL 100 MEQ/L (98-107); CREATININE FOR GFR 0.98 MG/DL (0.70-1.30); GLOMERULAR FILTRATION RATE > 60.0 (>60); GLUCOSE, FASTING 215 MG/DL (70-105); POTASSIUM SERUM 3.8 MEQ/L (3.5-5.1); SODIUM LEVEL 137 MEQ/L (136-145); TOTAL PROTEIN 7.7 GM/DL (6.4-8.2)
--- NOTE | 2017-02-08 11:02 | REP ---
REASON: History of shunt revision. COMPARISON: 01/29/2017 The ventriculoperitoneal shunt catheters entering the right lateral ventricle are unchanged. The ventricles are unchanged. Extensive bilateral temporoparietal and left occipital lobe encephalomalacia status quo. No evidence of acute intracranial hemorrhage or shift in the midline structures. The distal aspect and left frontal horn of the left lateral ventricle is slightly increased in size compared to the prior exam. The third ventricle is slightly increased in size compared to the prior exam. The quadrigeminal plate cistern appears narrowed as does the suprasellar cistern when compared to the prior exam. IMPRESSION: 1. No change in the appearance of the shunt catheters. 2. Chronic changes as described above. 3. Increased ventricular size along with narrowing of the quadrigeminal plate cistern and suprasellar cistern, which may be an indication of cerebral edema. This needs to be correlated clinically with close followup. Signed by Marcus Ortez DO 02/08/2017 11:31 A
[2017-02-08 12:13] LABS: ABG BASE EXCESS -4.6 (-2.0-2.0); ABG HCO3 25.8 MEQ/L (22.0-26.0); ABG PARTIAL PRESSURE O2 181.9 mmHg (75.0-100.0); ABG STANDARD HCO3 20.7 MEQ/L (22.0-26.0); ABG TOTAL CO2 28.2 MEQ/L (22.0-29.0)
[2017-02-08 12:20] LABS: ABG PARTIAL PRESSURE CO2 75.2 mmHg (35.0-45.0); ABG pH (ARTERIAL) 7.154 UNITS (7.350-7.450)
--- NOTE | 2017-02-08 12:25 | REP ---
FOLLOWUP SHUNT SERIES: The examination is technically different from the prior exam and an exact comparison cannot be made. Measuring the device as best as possible to compare to the prior exam as closely as possible reveals no significant change in the rotation of the triangular notch of the valve. The acute angle measurement to the longitudinal line was previously 138 degrees and today it measures 139 degrees. The shunt itself has changed in position with the tip now residing in the right mid abdomen rather than the right pelvis. No shunt fracture is identified. IMPRESSION: Exam limitations and findings as described above. Signed by Marcus Ortez DO 02/08/2017 01:09 P
[2017-02-08] MEDS ORDERED: ISOVUE-370 76% 100ML VIAL (Q9967) As Ordered ONE (12:40)
[2017-02-08 13:21] VITALS: BP 43/22
== END 2017-02-08 15:30 | disposition expired ==
LOC: EDBD 09:00 → M ED 09:33
DX: R56.9 Unspecified convulsions (principal); R06.89 Other abnormalities of breathing; K92.2 Gastrointestinal hemorrhage, unspecified; G80.9 Cerebral palsy, unspecified; Z79.899 Other long term (current) drug therapy; Z91.040 Latex allergy status
CPT/HCPCS: 70450; 75809; 80048; 80076; 82803; 83605; 85025; 85652; 86140; 93041; 96365; 99285; J1953